=== PATIENT | female | born 1970 | race Caucasian/White ===

== ENCOUNTER → 2019-12-05 12:46 | Outpatient (BNVA) | payer MEDICAID, SELFPAY | PROVIDERS: PCP Family Medicine; Referring Provider Internal Medicine; Visit Provider Physician Assistant | DX: Z76.89 Persons encountering health services in other specified circumstances (principal) ==

== ENCOUNTER 2019-12-25 14:33 | Outpatient (REF) | payer MEDICAID, SELFPAY ==
--- NOTE | 2019-12-25 14:51 | MM_ITS ---
EXAMINATION: MM DIAGNOSTIC DIGITAL BREAST TOMOSYNTHESIS, LEFT CLINICAL INFORMATION: Benign stereotactic biopsy 05/27/2019 (benign breast parenchyma with fibroadenomatous changes and associated microcalcifications). Post biopsy hematoma. Follow-up. The lifetime risk of breast cancer based on the Tyrer-Cuzick Model is 8%. COMPARISON: Mammography: 05/27/2019, 05/21/2019, 05/14/2019 TECHNIQUE: Digital breast tomosynthesis is performed in both the craniocaudal and mediolateral oblique views along with computer-aided detection (CAD). Synthesized 2D images are generated from the tomosynthesis. Additional magnification left CC and magnification left LM views are obtained. FINDINGS: There are scattered areas of fibroglandular density (ACR BI-RADS breast composition Category b). The post procedure hematoma has almost completely resolved with only some minor residual density just medial to the clip marker. There are some residual calcifications as expected. The remainder the left breast is unremarkable. No additional findings. Today's exam serves as new baseline post sampling. Results are discussed with the patient at time of visit. IMPRESSION: No mammographic evidence of malignancy. Today's mammogram serves as new baseline for left breast. ASSESSMENT: BI-RADS 2: Benign RECOMMENDATION: Routine annual mammography screening, due in 6 months. This patient's information was entered into a reminder system with a target due date for their next mammogram.
== END 2019-12-25 14:34 | disposition home or self-care (01) ==
LOC: HO.MAMMO 14:33
PROVIDERS: PCP Internal Medicine; Visit Provider Internal Medicine
DX: Z98.890 Other specified postprocedural states (principal)
CPT/HCPCS: 77061; 77065

== ENCOUNTER 2020-02-13 08:55 | Day surgery (SDC) | payer MEDICAID, SELFPAY ==
[2020-02-07 13:38] VITALS: BMI 31.2
--- NOTE | 2020-02-12 09:19 | HO.ANESPROP2 ---
Documented by User: Holly Hill 02/12/20 09:23 HPI - Anesthesia Eval Consult details Narrative: 49yo F for Colonoscopy PMFSH Past Medical History Medical History Diabetes Hyperlipidemia Hypertension Family History Family History Father No problems noted. Mother No problems noted. Surgical History Surgical History S/P breast biopsy, left Social History Social History Are you a primary respiratory care program director to a significant other at home: No Do you presently have visiting nurse or other home services: No Smoking Status: Unknown if ever smoked Use of substances other than those prescribed or required for medical reasons: No Have you been hit, kicked, punched, or otherwise hurt by someone within the past year? If so, by whom?: No Advance Directives: No Advance Directives Information Provided: No Advance Directives on File: No Meds Allergies Allergy/AdvReac Type Severity Reaction Status Date / Time No Known Allergies Allergy Unverified 02/07/20 13:26 [No Known Allergies*] Home Medications Medication Instructions Recorded Confirmed Type aspirin 81 mg chewable tablet 81 mg PO DAILY 12/04/19 02/07/20 History atorvastatin 20 mg tablet 20 mg PO DAILY 12/04/19 02/07/20 History hydrochlorothiazide 25 mg tablet 25 mg PO QAM 12/04/19 02/07/20 History losartan 100 mg tablet 100 mg PO DAILY 12/04/19 02/07/20 History insulin glargine [Lantus U-100 34 unit SUBCUT QPM 02/07/20 02/07/20 History Insulin] insulin lispro [Humalog U-100 12 unit SUBCUT DIRECTED 02/07/20 02/07/20 History Insulin] Exam Exam Date and Time: February 12, 2020918 Height,Weight and Vital Signs: Height 5 ft Weight 72.575 kg Assessment and Plan Assessment Anesthesia Assessment: Chart Reviewed Documented by User: Basilio Alvarez 02/13/20 09:41 [facility] Past Medical History Medical History Diabetes Hyperlipidemia Hypertension Family History Family History Father No problems noted. Mother No problems noted. Surgical History Surgical History S/P breast biopsy, left Social History Social History Are you a primary respiratory care program director to a significant other at home: No Do you presently have visiting nurse or other home services: No Smoking Status: Unknown if ever smoked Use of substances other than those prescribed or required for medical reasons: No Have you been hit, kicked, punched, or otherwise hurt by someone within the past year? If so, by whom?: No Advance Directives: No Advance Directives Information Provided: No Advance Directives on File: No Meds Allergies Allergy/AdvReac Type Severity Reaction Status Date / Time No Known Allergies Allergy Unverified 02/07/20 13:26 [No Known Allergies*] Home Medications Medication Instructions Recorded Confirmed Type aspirin 81 mg chewable tablet 81 mg PO DAILY 12/04/19 02/07/20 History atorvastatin 20 mg tablet 20 mg PO DAILY 12/04/19 02/07/20 History hydrochlorothiazide 25 mg tablet 25 mg PO QAM 12/04/19 02/07/20 History losartan 100 mg tablet 100 mg PO DAILY 12/04/19 02/07/20 History insulin glargine [Lantus U-100 34 unit SUBCUT QPM 02/07/20 02/07/20 History Insulin] insulin lispro [Humalog U-100 12 unit SUBCUT DIRECTED 02/07/20 02/07/20 History Insulin] Exam Airway Mallampati Class: II TM Dist: >3cm Neck ROM: Full Loose/Missing/Broken Teeth: No Heart: rrr+[id number] Lungs: cta b/l Assessment and Plan Assessment Anesthesia Assessment: Anesthesia Plan Discussed, PAT Visit and Chart Reviewed Final Anesthetic Review NPO: Yes ASA Class: II Final Preanesthetic Review: No Changes in Pt Med Stat, Meds/Allgs Chart Reviewed, Consent Obtained/Reviewed and Anes Risks/Benef Reviewed Patient Risk: Low Procedure Risk: Low Assessment/Block/Sedation in SS: Assess/Block/Sedation-SS Anesthetic Plan Anesthetic Plan: MAC: Disposition: Standard PACU
[2020-02-13 09:12] LABS: Glucose, Whole Blood 133 mg/dL (60-115)
[2020-02-13 09:15] VITALS: BP 131/79; PULSE 86; RESP 20; TEMP 36.6; O2SAT 99
--- NOTE | 2020-02-13 09:17 | MHC.SHP ---
Pre-Procedural Eval Section B Chief Complaint: SCREENING Details of Present Illness: Colon cancer screening Relevant Family History (Specify if Yes): No Relevant Social History: None Present Medications: see Short Stay Collaborative assessment Medical History: Significant History (Diabetes new this year. Hypertension, HLD) History of Previous Operations: No relevant previous surgery Allergies: Allergies Allergy/AdvReac Type Severity Reaction Status Date / Time No Known Allergies Allergy Unverified 02/07/20 13:26 [No Known Allergies*] Review of Systems Sugical H&P ROS: Negative: Constitution, Respiratory and Gastrointestinal and Yes, Specify: Cardiovascular (hypertension controlled on meds) and Endocrine (diabetes new) Exam Surgical H&P Exam: Normal: HEENT, Normal: Heart, Normal: Lungs, Normal: Extremities and Normal: Abdomen Plan Diagnosis/Plan: Unchanged Patient has been examined and remains a candidate for the planned procedure--yes
[2020-02-13] MEDS: Lactated Ringers 1,000 ML 100 ML IVCONT (09:33)
--- NOTE | 2020-02-13 09:49 | PM.OP ---
Brief Operative Note Date of Service: 02/13/20 Pre-op diagnosis: iNITIAL COLON CANCER SCREENING--NON HIGH RISK Post-op diagnosis: other (? POOR OR NO PREP) Procedure: COLONOSCOPY TO 25 CM ALL SOLID STOOL PRESENT Implants: NONE Surgeon: Janki Gagnon MD Anesthesia: MAC (FAROOQ HONG) Estimated blood loss (mL): 0 Pathology: none sent Condition: stable Disposition: PACU
[2020-02-13 09:53] VITALS: BP 123/65; PULSE 82; RESP 14; TEMP 36.8; O2SAT 98
[2020-02-13 10:07] VITALS: BP 139/84; PULSE 81; RESP 14; TEMP 36.8; O2SAT 97
--- NOTE | 2020-02-13 10:36 | HO.POSTANES ---
Post Anesthesia Evaluation Post Anesthesia Evaluation Vital Signs: Vital Signs Temp Pulse Resp BP Pulse Ox 02/13/20 10:07 98.2 F 81 14 139/84 97 02/13/20 09:53 98.2 F 82 14 123/65 98 02/13/20 09:15 98 F 86 20 131/79 99 Anesthesia: General (tiva) Mental Status: Awake Pain Control: Satisfactory Nausea/Vomiting: None Hydration: Adequate Anesthesia-Related Issues: No Anes. Related Issues
--- NOTE | 2020-02-13 11:01 | OP_ITS ---
SURGEON: Janki Gagnon MD PREOPERATIVE DIAGNOSIS: Colon cancer screening. POSTOPERATIVE DIAGNOSIS: Poor prep; question no prep. PROCEDURE PERFORMED: Colonoscopy to 25 cm secondary to stool burden. ESTIMATED BLOOD LOSS: No blood loss. COMPLICATIONS: No complications. ANESTHESIA: Monitored. ANESTHESIOLOGIST: Owen Cramer CRNA. ASSISTANTS:NONE SPECIMENS: No specimens removed. ACADEMIC PROGRAM SPECIALIST: Dr. Gagnon. FINDINGS: Digital rectal exam reveals sphincter tone to be adequate. There was stool immediately upon palpating at time of digital rectal exam. The scope was introduced and, as predicted, there was nothing but solid stool present. There was no residual liquid effluent around. I was able to slowly navigate over scybalous stool to the level of approximately 25 cm. There were no large lesions. No evidence of bleeding. Scope was withdrawn. Anorectal verge was clear. PLAN: The patient will need a repeat exam, would suggest clarification on how she approached the prep. She may have a degree of constipation not appreciated, concern would be to consider a two-day prep in her if that is the case. Repeat exam should be considered in the next year. Would suggest postprocedure FIT testing. If negative, we could safely go out 12 months: She has no family history. She is a nonsmoker etc. Our office will send out the FIT card. She will be rescheduled after results are reviewed. EXCELLENCE COACH: No library assistant. GRAFT OR IMPLANTS: No grafts or implants. CONDITION: Postprocedure, stable. Janki Gagnon MD MEN/MODL / [id number] [facility] CENTERBrooke
== END 2020-02-13 10:51 | disposition home or self-care (01) ==
PROVIDERS: PCP Internal Medicine; Visit Provider Internal Medicine Gastroenterology
PROC: 0DJD8ZZ Inspection of Lower Intestinal Tract, Via Natural or Artificial Opening Endoscopic (ICD-10-PCS; CPT 45378; principal; 2020-02-13 09:30)
DX: Z12.11 Encounter for screening for malignant neoplasm of colon (principal); E11.9 Type 2 diabetes mellitus without complications; Z79.4 Long term (current) use of insulin
CPT/HCPCS: 45330; 82947

== ENCOUNTER → 2020-04-01 10:11 | Outpatient (BNVA) | payer MEDICAID, SELFPAY | PROVIDERS: Visit Provider Advanced Practice Midwife | DX: Z76.89 Persons encountering health services in other specified circumstances (principal) ==

== ENCOUNTER 2020-05-19 11:09 | Outpatient (REF) | payer MEDICAID, SELFPAY ==
--- NOTE | ~2020-05-19 | MM_ITS ---
EXAMINATION: MM SCREENING DIGITAL BREAST TOMOSYNTHESIS, BILATERAL CLINICAL INFORMATION: Screening. Asymptomatic. Benign left stereotactic biopsy for calcifications 05/27/2019 (Benign breast parenchyma with fibroadenomatous changes and associated microcalcifications). The lifetime risk of breast cancer based on the Tyrer-Cuzick Model is 9%. COMPARISON: Mammography: 12/25/2019, 05/27/2019, 05/21/2019, 05/08/2018, 05/04/2017 TECHNIQUE: Digital breast tomosynthesis is performed in both the craniocaudal and mediolateral oblique views along with computer-aided detection (CAD). Synthesized 2D images are generated from the tomosynthesis. FINDINGS: There are scattered areas of fibroglandular density (ACR BI-RADS breast composition Category b). There are no significant masses, abnormal calcifications, or other abnormalities. Parenchymal pattern is similar to prior studies. There are incidental shifting fibroglandular densities from year to year related to positioning and compression. Biopsy clip marker again seen posterior central 9:00 left breast. No recurrent calcifications. The axilla and skin contours are unremarkable. MM/MM tomosynthesis screening BI IMPRESSION: No mammographic evidence of malignancy. ASSESSMENT: BI-RADS 2: Benign RECOMMENDATION: Routine annual mammography screening. This patient's information was entered into a reminder system with a target due date for their next mammogram.
== END 2020-05-19 11:10 | disposition home or self-care (01) ==
LOC: HO.MAMMO 11:09
PROVIDERS: PCP Internal Medicine; Visit Provider Internal Medicine
DX: Z12.31 Encounter for screening mammogram for malignant neoplasm of breast (principal)
CPT/HCPCS: 77063; 77067

== ENCOUNTER → 2020-08-19 10:28 | Outpatient (BNVA) | payer MEDICAID, SELFPAY | PROVIDERS: PCP Internal Medicine; Visit Provider Physician Assistant ==

== ENCOUNTER → 2020-08-27 09:36 | Outpatient (BNVA) | payer MEDICAID, SELFPAY | PROVIDERS: PCP Internal Medicine; Visit Provider Physician Assistant ==

== ENCOUNTER 2020-12-26 15:37 | Emergency (ER) | payer MEDICAID, SELFPAY ==
[2020-12-26 16:16] VITALS: BP 140/76; PULSE 108; RESP 20; TEMP 37.6; O2SAT 93; BMI 37.3
[2020-12-26 16:41] VITALS: BP 125/74; PULSE 118; RESP 18; TEMP 39.7; O2SAT 93
[2020-12-26] MEDS: Acetaminophen 325 MG TABLET 975 MG PO (17:05)
[2020-12-26 17:18] LABS: COVID-19 Test Positive (Negative)
--- NOTE | 2020-12-26 18:18 | ED_ITS ---
HPI - General Adult General Chief complaint: General Medical Stated complaint: Fever/Bodyaches Time Seen by Provider: 12/26/20 16:23 Source: patient Mode of arrival: ambulatory Limitations: no limitations History of Present Illness HPI narrative: 50-year-old female who presents emergency department for evaluation of fever, headaches, body aches, and fatigue. The patient states that she was exposed to a friend who is COVID positive. The patient has not been vaccinated for COVID. She has been sick for approximately 2-3 days. She denied chest pain, shortness of breath, dyspnea on exertion, diarrhea, loss of s ense of taste or smell. Patient's past medical history significant for obesity, hypertension, diabetes mellitus and high cholesterol. Related Data Home Medications Medication Instructions Recorded Confirmed aspirin 81 mg chewable tablet 81 mg PO DAILY 12/04/19 10/09/20 (Children's Aspirin) atorvastatin 20 mg tablet 20 mg PO DAILY 12/04/19 10/09/20 hydrochlorothiazide 25 mg tablet 25 mg PO QAM 12/04/19 10/09/20 losartan 100 mg tablet 100 mg PO DAILY 12/04/19 10/09/20 insulin glargine 100 unit/mL 38 unit SUBCUT QPM 02/07/20 10/09/20 subcutaneous solution (Lantus U-100 Insulin) insulin lispro 100 unit/mL 14 unit SUBCUT QAM 02/07/20 10/09/20 subcutaneous solution (Humalog U-100 Insulin) Previous Rx's Medication Instructions Recorded peg-electrolyte solution 420 gram 240 ml PO ONCE 1 Days #4000 ml 08/27/20 oral solution (TriLyte With Flavor Packets) polyethylene glycol 3350 17 17 g PO DAILY PRN #510 g 08/27/20 gram/dose oral powder (Miralax) Allergies Allergy/AdvReac Type Severity Reaction Status Date / Time No Known Allergies Allergy Verified 08/27/20 09:36 [No Known Allergies*] Review of Systems Review of Systems: Yes all other systems are reviewed and are negative [facility] Past Medical History [facility] Narrative: Past medical history: Obesity with BMI of 37, hypertension, hyperlipidemia, and diabetes. Past surgical history: None. Social history: She denies tobacco, alcohol and drug use. Medical History Diabetes Hyperlipidemia Hypertension Surgical History H/O colonoscopy H/O esophagogastroduodenoscopy S/P breast biopsy, left Family History Family History Father No problems noted. Mother No problems noted. Social History Social History (Updated 08/27/20 @ 10:17 by Louise Hawley PA-C) Are you a primary adult caregiver to a significant other at home: No Do you presently have visiting nurse or other home services: No Alcohol intake: never Patient Tobacco Use Status: Never used Tobacco Use of substances other than those prescribed or required for medical reasons: No Advance Directives: No Advance Directives Information Provided: No Physical Exam Vital Signs: Vital Signs: Last Vital Signs Temp 103.4 F H 12/26/20 16:41 Pulse 118 H 12/26/20 16:41 Resp 18 12/26/20 16:41 BP 125/74 12/26/20 16:41 Pulse Ox 93 12/26/20 16:41 Body Mass Index 37.3 Const: General: cooperative and no acute distress Orientation/consciousness: oriented to person and oriented to place Limitations: no limitations HENMT: Head: Yes normal to inspection, Yes normocephalic and Yes atraumatic Ears: external ears normal General nose exam: Normal external nose present Face and sinus: Yes normal facial exam Mouth: Normal oral and palatal mucosa present Throat: Yes posterior oropharynx normal Eyes: General: appearance normal, both eyes and all related structures Pupils: Equal, round and reactive pupils present Neck: Neck: Yes normal visual inspection, Yes no lymphadenopathy, Yes trachea midline and Yes supple Chest: Chest palpation & inspection: normal inspection of the chest and normal palpation of entire chest wall Resp: Effort & Inspection: normal respiratory effort and able to speak in complete sentences Auscultation: clear to auscultation bilaterally Cardio: Rate: regular rate Rhythm: regular rhythm Heart sounds: S1 normal heart sound present, S2 normal heart sound present and no murmurs GI: Inspection: Yes normal to inspection Palpation (GI): Soft to palpation, nontender and no guarding Auscultation: normal bowel sounds : General: Yes no CVA tenderness Back/Spine/Pelvis: Back: no CVA tenderness Skin: General skin exam: no rashes or lesions noted Neuro: General: oriented to person and oriented to place Cranial nerves: Yes CN's II-XII intact bilaterally and Yes Equal, round and reactive pupils present Cognition (Neuro): normal cognition Motor exam (neuro): 5/5 motor strength present throughout Extrem: General: Yes normal to inspection Psych: Appearance: grossly normal Speech and movement: Normal speech and movement present Affect: normal affect Attitude: cooperative Thought process: Normal thought process present Thought content: Normal thought content present Course Course Course Narrative: 50-year-old female with a history of obesity, diabetes mellitus, hypertension hyperlipidemia who was exposed to COVID-19 is now been sick for approximately 2-3 these with a viral-like illness. Patient's vital signs did reveal a temperature 103.4? F. She was also tachycardic with a pulse of 118. O2 saturation was 93% on room air. Physical examination was unrem arkable. COVID-19 test is positive. I did discuss this with her. Given her comorbid conditions I felt that she would benefit from monoclonal therapy and I did contact the [facility] monoclonal referral line and left a message on the referral line answering machine. The patient was advised to contact the referral line tomorrow morning to discuss whether not she can get monoclonal antibodies. The patient does not need to be hospitalized at this time and she will be discharged home with verbal and printed instructions on COVID-19 infection. I did give her warning signs for pneumonia and instructed her to to return to emergency department if she develops the signs. She was discharged home. Medical Decision Making Lab Data Labs: Lab Results 12/26/20 Range/Units 17:02 COVID-19 (ANIL) Positive A (Negative) COVID-19 Clin Com See Note Discharge Plan Discharge Clinical Impression: COVID-19 virus infection Patient Disposition: Home, Self-Care Instructions: COVID-19 (Coronavirus Disease 2019) (ED) Additional Instructions: Your COVID-19 RNA test was positive. Given your medical problems which include obesity (BMI of 37) diabetes, hype rtension and high cholesterol, you are at high risk for a more serious COVID infection. I have called the [facility] COVID-19 monoclonal antibody line. [facility] has the ability to give you COVID-19 antibodies and this might help prevent you from getting seriously ill from this COVID-19 infection. I gave them your phone number, if you do not hear from them by 1:00 p.m. tomorrow then call this number to ask them if you qualify for COVID-19 monoclonal antibodies. . This medication could save your lie and prevent you from gettin g seriously ill from COVID-19. Watch for signs of pneumonia which include chest pain, cough, shortness of breath, shortness of breath when you exert yourself. If you develops signs of pneumonia then you may need to be hospitalized and you should return to the emergency department for re-evaluation. You need to isolate yourself for 14 days so that you do not expose any but he also 2 COVID-19. Prescriptions: No Action Lantus U-100 Insulin 100 unit/mL Solution 38 unit SUBCUT QPM RF: 0 insulin lispro [Humalog U-100 Insulin] 100 unit/mL Solution 14 unit SUBCUT QAM RF: 0 peg-electrolyte soln [TriLyte With Flavor Packets] 420 gram recon soln 240 ml PO ONCE 1 Days Qty: 4000 RF: 0 polyethylene glycol 3350 [Miralax] 17 gram/dose powder 17 g PO DAILY PRN (Reason: laxative effect) Qty: 510 RF: 0 aspirin [Children's Aspirin] 81 mg tablet,chewable 81 mg PO DAILY RF: 0 atorvastatin 20 mg tablet 20 mg PO DAILY RF: 0 losartan 100 mg tablet 100 mg PO DAILY RF: 0 hydrochlorothiazide 25 mg tablet 25 mg PO QAM RF: 0
[2020-12-26 18:27] VITALS: BP 137/91; PULSE 106; RESP 16; TEMP 37.8; O2SAT 94
== END 2020-12-26 18:40 | disposition home or self-care (01) ==
PROVIDERS: Emergency Provider Emergency Medicine Emergency Medical Services; PCP Internal Medicine
DX: U07.1 COVID-19 (principal); M79.10 Myalgia, unspecified site; R50.9 Fever, unspecified; E11.9 Type 2 diabetes mellitus without complications; Z79.4 Long term (current) use of insulin; Z79.899 Other long term (current) drug therapy
CPT/HCPCS: 36415; 87635; 99283; 99284

== ENCOUNTER 2021-05-11 11:25 | Outpatient (REF) | payer MEDICAID, SELFPAY ==
--- NOTE | ~2021-05-11 | US_ITS ---
EXAMINATION: US PELVIS CLINICAL INFORMATION: This is a 50-year-old postmenopausal female with postmenopausal bleeding. COMPARISON: Comparison is made to previous study dated 10/13/2009. TECHNIQUE: Ultrasound of the pelvis is performed using transabdominal transducers along with Doppler. Transvaginal imaging was declined. FINDINGS: Uterus: The uterus is anteverted and anteflexed and measures 12.8 x 3.9 x 5.2 cm. The double wall endometrial thickness is 6 mm. The uterus is smooth in contour and has normal myometrial echogenicity. No visible fibroid. Adnexa: Both ovaries are visualized. There is normal color flow to the adnexa. There is no ovarian torsion. There is no pelvic ascites or fluid collection. Right ovary measures 2.4 x 1.5 x 2.0 cm. The ovary volume is 3.8 mL. Previously, the right ovary measured 1.5 x 1.1 x 2.2 cm. Left ovary measures 2.2 x 1.5 x 2.6 cm. The left ovary volume is 4.5 mL. Previously, the left ovary measured 2.5 x 2.2 x 2.8 cm. US/US pelvic and transvaginal IMPRESSION: 1. The endometrial thickness is mildly increased for postmenopausal patient but relatively homogeneous. Clinical correlation is recommended. 2. Otherwise, normal study.
== END 2021-05-11 11:26 | disposition home or self-care (01) ==
LOC: HO.US 11:25
PROVIDERS: PCP Internal Medicine; Visit Provider Advanced Practice Midwife
DX: N95.0 Postmenopausal bleeding (principal)
CPT/HCPCS: 76830; 76856

== ENCOUNTER 2021-07-05 08:45 | Day surgery (SDC) | payer MEDICAID, SELFPAY ==
[2021-06-30 08:43] VITALS: BMI 38.4
--- NOTE | 2021-07-02 09:35 | P.CONAN_ITS ---
Documented by User: Holly Hill NP 07/02/21 09:36 HPI - Anesthesia Eval Consult details Narrative: 51yo F for Colonoscopy PMFSH Active Problems Active Problems: All Active Problems (Updated 03/12/21 @ 15:10 by Erica Jimenez, ANALI) Encounter for screening colonoscopy (Acute) COVID-19 virus infection (Acute) Past Medical History Medical History (Updated 03/12/21 @ 15:10 by Erica Jimenez RN) Diabetes History of COVID-19 Hyperlipidemia Hypertension Family History Family History Father No problems noted. Mother No problems noted. Surgical History Surgical History H/O colonoscopy H/O esophagogastroduodenoscopy S/P breast biopsy, left Social History Social History (Updated 08/27/20 @ 10:17 by Louise Hawley PA-C) Are you a primary child day care teacher to a significant other at home: No Do you presently have visiting nurse or other home services: No Alcohol intake: never Patient Tobacco Use Status: Never used Tobacco Advance Directives: No Advance Directives Information Provided: Yes Meds Allergies Allergy/AdvReac Type Severity Reaction Status Date / Time No Known Allergies Allergy Verified 01/27/21 14:13 [No Known Allergies*] Home Medications Medication Instructions Recorded Confirmed Last Taken Type aspirin 81 mg chewable tablet 81 mg PO DAILY 12/04/19 01/27/21 Unknown History (Children's Aspirin) atorvastatin 20 mg tablet 20 mg PO DAILY 12/04/19 01/27/21 Unknown History hydrochlorothiazide 25 mg tablet 25 mg PO QAM 12/04/19 01/27/21 Unknown History losartan 100 mg tablet 100 mg PO DAILY 12/04/19 01/27/21 Unknown History insulin glargine 100 unit/mL 38 unit SUBCUT QPM 02/07/20 01/27/21 Unknown History subcutaneous solution (Lantus U-100 Insulin) insulin lispro 100 unit/mL 14 unit SUBCUT QAM 02/07/20 01/27/21 Unknown History subcutaneous solution (Humalog U-100 Insulin) Exam Exam Date and Time: July 02, 2021 0935 Height,Weight and Vital Signs: Height 4 ft 11.25 in Weight 87.09 kg Assessment and Plan Assessment Anesthesia Assessment: Chart Reviewed Documented by User: Ellen Chappell MD 07/05/21 09:28 REPLACED BY [facility] Past Medical History Medical History (Updated 03/12/21 @ 15:10 by Erica Jimenez, ANALI) Diabetes History of COVID-19 Hyperlipidemia Hypertension Family History Family History Father No problems noted. Mother No problems noted. Family history of problems with anesthesia: No Surgical History Surgical History H/O colonoscopy H/O esophagogastroduodenoscopy S/P breast biopsy, left History of Problems with Anesthesia: No Social History Social History (Updated 08/27/20 @ 10:17 by Louise Hawley PA-C) Are you a primary child day care teacher to a significant other at home: No Do you presently have visiting nurse or other home services: No Alcohol intake: never Patient Tobacco Use Status: Never used Tobacco Advance Directives: No Advance Directives Information Provided: Yes Meds Allergies Allergy/AdvReac Type Severity Reaction Status Date / Time No Known Allergies Allergy Verified 01/27/21 14:13 [No Known Allergies*] Home Medications Medication Instructions Recorded Confirmed Last Taken Type aspirin 81 mg chewable tablet 81 mg PO DAILY 12/04/19 01/27/21 Unknown History (Children's Aspirin) atorvastatin 20 mg tablet 20 mg PO DAILY 12/04/19 01/27/21 Unknown History hydrochlorothiazide 25 mg tablet 25 mg PO QAM 12/04/19 01/27/21 Unknown History losartan 100 mg tablet 100 mg PO DAILY 12/04/19 01/27/21 Unknown History insulin glargine 100 unit/mL 38 unit SUBCUT QPM 02/07/20 01/27/21 Unknown History subcutaneous solution (Lantus U-100 Insulin) insulin lispro 100 unit/mL 14 unit SUBCUT QAM 02/07/20 01/27/21 Unknown History subcutaneous solution (Humalog U-100 Insulin) Exam Airway Mallampati Class: II TM Dist: >3cm Neck ROM: Full Heart: rrr Lungs: cta Assessment and Plan Assessment Anesthesia Assessment: Anesthesia Plan Discussed and Chart Reviewed Final Anesthetic Review Family History of Problems with Anesthesia: No History of Problems with Anesthesia: No NPO: Yes ASA Class: III Final Preanesthetic Review: No Changes in Pt Med Stat, Meds/Allgs Chart Reviewed and Consent Obtained/Reviewed Patient Risk: Intermediate Procedure Risk: Intermediate Anesthetic Plan Anesthetic Plan: MAC: Disposition: Standard PACU
--- NOTE | 2021-07-05 09:19 | MHC.SHP ---
Pre-Procedural Eval Section A Date of Service: 07/05/21 The patient is an INPATIENT: No The History & Physical has been completed within 30 days and I have reviewed it.: No Section B Chief Complaint: screening Details of Present Illness: Colon cancer screening Relevant Family History (Specify if Yes): No Relevant Social History: None Present Medications: see Short Stay Collaborative assessment Medical History: Significant History (Diabetes Hyperlipidemia Hypertension) History of Previous Operations: Relevant previous surgery/procedure and date(s) (H/O colonoscopy H/O esophagogastroduodenoscopy S/P breast biopsy, left) Allergies: Allergies Allergy/AdvReac Type Severity Reaction Status Date / Time No Known Allergies Allergy Verified 01/27/21 14:13 [No Known Allergies*] Review of Systems Sugical H&P ROS: Negative: Constitution, Cardiovascular, Respiratory and Gastrointestinal Exam Surgical H&P Exam: Normal: Heart, Normal: Lungs, Normal: Extremities and Normal: Abdomen Plan Diagnosis/Plan: Unchanged I have reviewed the history and physical and performed a pertinent physical examination on my patient. No changes have occurred unless specified.
[2021-07-05 09:21] LABS: Glucose, Whole Blood 127 mg/dL (60-115)
[2021-07-05 09:22] VITALS: BMI 32.0
--- NOTE | 2021-07-05 09:28 | W.PM.OPN ---
Operative Note Operative Note Date of Service: 07/05/21 Narrative: Pre-op diagnosis: Colon cancer screening Post-op diagnosis:?other (Colon polyps, diverticulosis, hemorrhoids) Procedure: COLONOSCOPY TILL CECUM WITH BIOPSIES Consent: Indications for the procedure and potential complications of bleeding, perforation, reaction to medications and missed diagnosis were discussed with the patient and informed consent was obtained. Instrument: Olympus PCF H 190 L variable stiffness pediatric colonoscope Monitoring: Vital signs and clinical assessment, intermittent blood pressure monitoring, continuous EKG monitoring, Pulse oximetry and Carbon Dioxide monitoring were done throughout the procedure. Colon withdrawl time was 17 minutes. Procedure: The patient was placed in the left lateral decubitis position and pre-procedure medications were administered. After a digital rectal examination of the ano-rectum, the video colonoscope was inserted into the rectum and advanced through the colon to the cecum. The colonoscope was slowly withdrawn in a retrograde panoramic fashion and the colon mucosa was carefully examined including a retroflexed view of the rectum. Findings and interventions are described below. Procedure Difficulty: Without difficulty Findings: Terminal Ileum: Not evaluated Cecum:? Normal Ascending Colon:? Normal Transverse Colon:? A 4-5 mm diminutive appearing polyp in the distal TC - removed with a cold bx. Scattered moderate diverticulosis Descending Colon:? Scattered moderate diverticulosis Sigmoid Colon:? Moderate diverticulosis Rectum:? Normal Ano-rectum:? Moderate internal hemorrhoids Colon preparation:? Good after some irrigation. Pt was advised to take 2 tab of dulcolax daily x 3 days before colonoscopy. Pt drank a little more than half her prep and stated she was having clear BMs. Impression and Post Procedure Diagnosis: Colonoscopy Findings: One small polyp removed Moderate diverticulosis seen in the left and transverse colon Moderate hemorrhoids on retroflexed exam. Plan: Await pathology results Patient has an appointment on 07/19/21 in the [facility] with KENIA Jo. Repeat Colonoscopy interval based on path results - in 5 years if polyps are adenomatous and 10 years if polyps are hyperplastic. Above findings were reviewed with the patient and colon polyps and diverticulosis handouts were given in the discharge area Surgeon: Justin Espitia MD Anesthesia:?MAC (Dr Cr) Was an Back Up Scan Coordinator used for this Procedure?:?Yes Back Up Scan Coordinator:?Margaux Pompa Estimated blood loss (mL):?0 Pathology:?other (A. transverse colon polyp) Condition:?stable Disposition:?PACU
[2021-07-05] MEDS: Lactated Ringers 1,000 ML 100 ML IVCONT (09:55)
[2021-07-05 10:39] VITALS: BP 129/80; PULSE 80; RESP 16; TEMP 36.2; O2SAT 95
[2021-07-05 10:54] VITALS: BP 124/76; PULSE 86; RESP 16; TEMP 36.2; O2SAT 95
[2021-07-05 11:09] VITALS: BP 134/91; PULSE 82; RESP 16; TEMP 36.2; O2SAT 95
[2021-07-05 11:20] LABS: Glucose, Whole Blood 107 mg/dL (60-115)
== END 2021-07-05 11:58 | disposition home or self-care (01) ==
PROVIDERS: PCP Internal Medicine; Visit Provider Internal Medicine Gastroenterology
PROC: 0DJD8ZZ Inspection of Lower Intestinal Tract, Via Natural or Artificial Opening Endoscopic (ICD-10-PCS; CPT 45378; principal; 2021-07-05 10:00)
DX: Z12.11 Encounter for screening for malignant neoplasm of colon (principal); K63.5 Polyp of colon; K57.30 Diverticulosis of large intestine without perforation or abscess without bleeding; K64.8 Other hemorrhoids; I10 Essential (primary) hypertension; E78.5 Hyperlipidemia, unspecified; E11.9 Type 2 diabetes mellitus without complications; Z79.4 Long term (current) use of insulin; Z79.82 Long term (current) use of aspirin; Z79.899 Other long term (current) drug therapy; Z86.16 Personal history of COVID-19
CPT/HCPCS: 45380; 82947; 88305

== ENCOUNTER 2021-07-16 08:03 | Outpatient (REF) | payer MEDICAID, SELFPAY ==
--- NOTE | ~2021-07-16 | MM_ITS ---
EXAMINATION: MM SCREENING DIGITAL BREAST TOMOSYNTHESIS, BILATERAL CLINICAL INFORMATION: Screening. Asymptomatic. Benign left stereotactic biopsy 05/27/2019 (fibroadenomatous changes and associated microcalcifications). The lifetime risk of breast cancer based on the Tyrer-Cuzick Model is 7%. COMPARISON: Mammography: 05/19/2020, 12/25/2019, 05/27/2019, 05/21/2019, 05/14/2019, 05/08/2018. TECHNIQUE: Digital breast tomosynthesis is performed in both the craniocaudal and mediolateral oblique views along with computer-aided detection (CAD). Synthesized 2D images are generated from the tomosynthesis. FINDINGS: There are scattered areas of fibroglandular density (ACR BI-RADS breast composition Category b). There are no significant masses, abnormal calcifications, or other abnormalities. No developing density. Biopsy clip marker present central posterior 9:00 left breast. The axilla and skin contours are unremarkable. MM/MM tomosynthesis screening BI IMPRESSION: No mammographic evidence of malignancy. ASSESSMENT: BI-RADS 1: Negative RECOMMENDATION: Routine annual mammography screening. This patient's information was entered into a reminder system with a target due date for their next mammogram.
== END 2021-07-16 08:04 | disposition home or self-care (01) ==
LOC: HO.MAMMO 08:03
PROVIDERS: Visit Provider Internal Medicine
DX: Z12.31 Encounter for screening mammogram for malignant neoplasm of breast (principal)
CPT/HCPCS: 77063; 77067

== ENCOUNTER → 2021-07-26 10:31 | Outpatient (BNVA) | payer MEDICAID, SELFPAY | PROVIDERS: PCP Internal Medicine; Visit Provider Advanced Practice Midwife | DX: N95.0 Postmenopausal bleeding (principal) | CPT/HCPCS: 99212 ==

== ENCOUNTER 2021-08-19 10:16 | Outpatient (REF) | payer MEDICAID, SELFPAY | END 2021-08-19 10:17 | disposition home or self-care (01) | LOC: HO.LAB 10:16 | PROVIDERS: PCP Internal Medicine; Visit Provider Advanced Practice Midwife | DX: N95.0 Postmenopausal bleeding (principal) | CPT/HCPCS: 58100; 88305 ==

== ENCOUNTER → 2021-10-06 09:11 | Outpatient (BNVA) | payer MEDICAID, SELFPAY | PROVIDERS: PCP Internal Medicine; Visit Provider Obstetrics & Gynecology | DX: N95.0 Postmenopausal bleeding (principal) | CPT/HCPCS: 99212 ==

== ENCOUNTER → 2021-11-18 11:13 | Outpatient (BNVA) | payer MEDICAID, SELFPAY | PROVIDERS: PCP Internal Medicine; Visit Provider Obstetrics & Gynecology | DX: N95.0 Postmenopausal bleeding (principal) | CPT/HCPCS: 99212 ==

== ENCOUNTER 2021-11-19 10:48 | Day surgery (SDC) | payer MEDICAID, SELFPAY ==
[2021-11-01 10:59] VITALS: BMI 33.5
--- NOTE | 2021-11-18 08:52 | P.CONAN_ITS ---
Documented by User: Holly Hill NP 11/18/21 08:52 HPI - Anesthesia Eval Consult details Narrative: 51yo F for D&C Hysteroscopy,poss polypectomy,poss myomectomy PMFSH Active Problems Active Problems: All Active Problems (Updated 08/19/21 @ 10:47 by Jade Lema) Encounter for screening colonoscopy (Acute) COVID-19 virus infection (Acute) Postmenopausal bleeding (Acute) Past Medical History Medical History Diabetes History of COVID-19 Hyperlipidemia Hypertension Family History Family History Father No problems noted. Mother No problems noted. Family history of problems with anesthesia: No Surgical History Surgical History H/O colonoscopy H/O esophagogastroduodenoscopy Hx of tubal ligation S/P breast biopsy, left History of Problems with Anesthesia: No Social History Social History Are you a primary out of school hours care worker to a significant other at home: No Do you presently have visiting nurse or other home services: No Alcohol intake: never Patient Tobacco Use Status: Never used Tobacco Use of substances other than those prescribed or required for medical reasons: No Are you DNR?: No Advance Directives: No Advance Directives Information Provided: Yes Meds Allergies Allergy/AdvReac Type Severity Reaction Status Date / Time No Known Allergies Allergy Verified 11/18/21 11:36 [No Known Allergies*] Home Medications Medication Instructions Recorded Confirmed Last Taken Type aspirin 81 mg chewable tablet 81 mg PO DAILY 12/04/19 01/27/21 11/18/21 History (Children's Aspirin) atorvastatin 20 mg tablet 20 mg PO DAILY 12/04/19 01/27/21 Unknown History hydrochlorothiazide 25 mg tablet 25 mg PO QAM 12/04/19 01/27/21 11/19/21 History losartan 100 mg tablet 100 mg PO DAILY 12/04/19 01/27/21 Unknown History insulin glargine 100 unit/mL 38 unit subcut QPM 02/07/20 01/27/21 Unknown History subcutaneous solution (Lantus U-100 Insulin) insulin lispro 100 unit/mL 14 unit subcut QAM 02/07/20 01/27/21 Unknown History subcutaneous solution (Humalog U-100 Insulin) Exam Exam Date and Time: November 18, 2021 0852 Height,Weight and Vital Signs: Height 4 ft 11 in Weight 75.296 kg Assessment and Plan Assessment Anesthesia Assessment: Chart Reviewed Final Anesthetic Review Family History of Problems with Anesthesia: No History of Problems with Anesthesia: No Documented by User: David Delgado MD 11/19/21 14:02 HPI - Anesthesia Eval Consult details Narrative: 51yo F for D&C Hysteroscopy,poss polypectomy,poss myomectomy All risks and benefits of General Anesthesia explained in detail . [facility] Past Medical History Medical History Diabetes History of COVID-19 Hyperlipidemia Hypertension Functional capacity: independent ambulation Family History Family History Father No problems noted. Mother No problems noted. Surgical History Surgical History H/O colonoscopy H/O esophagogastroduodenoscopy Hx of tubal ligation S/P breast biopsy, left Social History Social History Are you a primary out of school hours care worker to a significant other at home: No Do you presently have visiting nurse or other home services: No Alcohol intake: never Patient Tobacco Use Status: Never used Tobacco Use of substances other than those prescribed or required for medical reasons: No Are you DNR?: No Advance Directives: No Advance Directives Information Provided: Yes Meds Allergies Allergy/AdvReac Type Severity Reaction Status Date / Time No Known Allergies Allergy Verified 11/18/21 11:36 [No Known Allergies*] Home Medications Medication Instructions Recorded Confirmed Last Taken Type aspirin 81 mg chewable tablet 81 mg PO DAILY 12/04/19 01/27/21 11/18/21 History (Children's Aspirin) atorvastatin 20 mg tablet 20 mg PO DAILY 12/04/19 01/27/21 Unknown History hydrochlorothiazide 25 mg tablet 25 mg PO QAM 12/04/19 01/27/21 11/19/21 History losartan 100 mg tablet 100 mg PO DAILY 12/04/19 01/27/21 Unknown History insulin glargine 100 unit/mL 38 unit subcut QPM 02/07/20 01/27/21 Unknown History subcutaneous solution (Lantus U-100 Insulin) insulin lispro 100 unit/mL 14 unit subcut QAM 02/07/20 01/27/21 Unknown History subcutaneous solution (Humalog U-100 Insulin) Exam Airway Mallampati Class: IV TM Dist: <=3cm Neck ROM: Full Loose/Missing/Broken Teeth: Yes (Fillings , Poor dentition overall ) Heart: S1,S2 Lungs: distant breath sounds Assessment and Plan Assessment Anesthesia Assessment: Anesthesia Plan Discussed Final Anesthetic Review NPO: Yes ASA Class: III Final Preanesthetic Review: Meds/Allgs Chart Reviewed, Consent Obtained/Reviewed and Anes Risks/Benef Reviewed Patient Risk: Intermediate Procedure Risk: Intermediate Anesthetic Plan Anesthetic Plan: GA Disposition: Standard PACU
[2021-11-19] VITALS (7 sets, daily range): BP systolic 117–156; BP diastolic 69–90; PULSE 77–89; RESP 16–18; TEMP 36.4–36.6; O2SAT 94–99; BMI 31.2
[2021-11-19 11:49] LABS: Glucose, Whole Blood 117 mg/dL (60-115)
--- NOTE | 2021-11-19 12:45 | MHC.SHP ---
Pre-Procedural Eval Section A Date of Service: 11/19/21 The patient is an INPATIENT: No Changes since office visit: No Cold of Flu in the past 2 weeks, No New Medical Problems, No Changes in Medication and No Patient answered all questions The History & Physical has been completed within 30 days and I have reviewed it.: Yes Section B Chief Complaint: Postmenopausal bleeding Allergies: Allergies Allergy/AdvReac Type Severity Reaction Status Date / Time No Known Allergies Allergy Verified 11/18/21 11:36 [No Known Allergies*] Plan Diagnosis/Plan: Unchanged I have reviewed the history and physical and performed a pertinent physical examination on my patient. No changes have occurred unless specified.
--- NOTE | 2021-11-19 14:14 | P.BOP_ITS ---
Brief Operative Note Date of Service: 11/19/21 Pre-op diagnosis: Postmenopausal bleeding Post-op diagnosis: same ( normal endometrial cavity) Procedure: Hysteroscopy D&C Surgeon: Froy Weinstein MD Anesthesia: GLMA Was an Resident Care Manager Rn used for this Procedure?: No Estimated blood loss (mL): 0 Pathology: other (Endometrial Scrapping.) Condition: stable Disposition: PACU
--- NOTE | 2021-11-19 14:15 | W.PM.OPN ---
Operative Note Operative Note Date of Service: 11/19/21 Narrative: Preop Diagnosis: Post Menopausal bleeding Operation: Diagnostic Hysteroscopy, Dilataion & Curettage Post Op Diagnosis: Normal endometrial cavity QBL: Minimal Anesthesia: MAC Surgeon: Froy Weinstein MD Pathology Laboratory Director: None Complication: None Pathology: Endometrial Scrapings Complication: None Pathology: Endometrial Scrapings Procedure: The patient was put in the dorsal lithotomy position, scrubbed, and draped in the usual manner. A sterile speculum was inserted in the patient's vagina. The anterior lip of the cervix was grasped with a single tooth tenaculum. The cervix was dilated up to 5 mm, then the scope was inserted in the patient's uterus. Inspection revealed Normal endometrial cavity. The Myosure Reach device was used; sharp curettings was carried on with minimal tissues retrieved. At the end of the procedure, all instruments were taken out of the patient uterine and vaginal cavity. The single tooth tenaculum was removed and homeostasis was assured using pressure,. The patient tolerated the procedure well and was transferred to the PACU in a stable condition.
--- NOTE | 2021-11-19 15:09 | PC.NURSE ---
late entry. pt in preop tearful at times, english teacher provided. pt worried about the potential for finding cancer as well as having general anesthesia, specifically being intubated. all questions answered regarding anesthesia and pt agreed to proceed. emotional support and warm blankets provided.
== END 2021-11-19 16:06 | disposition home health service (06) ==
LOC: HO.SSS 10:48
PROVIDERS: PCP Internal Medicine; Visit Provider Obstetrics & Gynecology
PROC: 0UDB8ZZ Extraction of Endometrium, Via Natural or Artificial Opening Endoscopic (ICD-10-PCS; CPT 58558; principal; 2021-11-19 13:30)
DX: N95.0 Postmenopausal bleeding (principal); E11.9 Type 2 diabetes mellitus without complications; I10 Essential (primary) hypertension; E78.5 Hyperlipidemia, unspecified; Z79.4 Long term (current) use of insulin; Z79.82 Long term (current) use of aspirin; Z79.899 Other long term (current) drug therapy; Z98.51 Tubal ligation status; Z86.16 Personal history of COVID-19
CPT/HCPCS: 58558; 82947; 88305; J1100; J2250; J2405; J3010

== ENCOUNTER → 2021-12-01 08:41 | Outpatient (BNVA) | payer MEDICAID, SELFPAY | PROVIDERS: PCP Internal Medicine; Visit Provider Obstetrics & Gynecology | DX: N95.0 Postmenopausal bleeding (principal) | CPT/HCPCS: 99212 ==

== ENCOUNTER 2022-02-03 09:21 | Outpatient (REF) | payer MEDICAID, SELFPAY | END 2022-02-03 09:22 | disposition home or self-care (01) | LOC: HO.LNP 09:21 | PROVIDERS: PCP Internal Medicine; Visit Provider Obstetrics & Gynecology | DX: N95.0 Postmenopausal bleeding (principal) | CPT/HCPCS: 58100; 88305 ==

== ENCOUNTER → 2022-03-08 12:16 | Outpatient (BNVA) | payer MEDICAID, SELFPAY | PROVIDERS: PCP Internal Medicine; Visit Provider Obstetrics & Gynecology | DX: N95.0 Postmenopausal bleeding (principal) | CPT/HCPCS: 99212 ==

== ENCOUNTER 2022-06-23 10:06 | Outpatient (REF) | payer MEDICAID, SELFPAY ==
[2022-06-23 11:57] LABS: Estimated Average Glucose 163 mg/dL; Hemoglobin A1c % 7.3 %
[2022-06-23 15:02] LABS: Cholesterol 258 mg/dL; HDL Cholesterol 34 mg/dL; LDL Cholesterol Calculated 165 mg/dl; Triglycerides 298 mg/dL
[2022-06-23 15:11] LABS: Free T4 (Free Thyroxine) 0.98 ng/dL (0.71-1.85)
== END 2022-06-23 10:07 | disposition home or self-care (01) ==
LOC: HO.LAB 10:06
PROVIDERS: PCP Internal Medicine; Visit Provider Internal Medicine Endocrinology, Diabetes & Metabolism
DX: E78.5 Hyperlipidemia, unspecified (principal)
CPT/HCPCS: 36415; 80061; 83036; 84439; 84443; 99202

== ENCOUNTER 2022-08-03 08:27 | Outpatient (REF) | payer MEDICAID, SELFPAY ==
--- NOTE | ~2022-08-03 | MM_ITS ---
EXAMINATION: MM SCREENING DIGITAL BREAST TOMOSYNTHESIS, BILATERAL CLINICAL INFORMATION: Screening. Asymptomatic. Benign left stereotactic biopsy 05/27/2019 (fibroadenomatous changes and associated microcalcifications). The lifetime risk of breast cancer based on the Tyrer-Cuzick Model is 7%. COMPARISON: Mammography: 07/16/2021, 05/19/2020, 12/25/2019, 05/27/2019, 05/21/2019, 05/14/2019, 05/08/2018. TECHNIQUE: Digital breast tomosynthesis is performed in both the craniocaudal and mediolateral oblique views along with computer-aided detection (CAD). Synthesized 2D images are generated from the tomosynthesis. FINDINGS: There are scattered areas of fibroglandular density (ACR BI-RADS breast composition Category b). Parenchymal pattern is similar to prior exams and there is no developing density or architectural abnormality. Biopsy clip marker again noted posterior central inner left breast. There are no significant masses, abnormal calcifications, or other abnormalities. The axilla and skin contours are unremarkable. No significant changes from prior exams. MM/MM tomosynthesis screening BI IMPRESSION: No mammographic evidence of malignancy. ASSESSMENT: BI-RADS 1: Negative RECOMMENDATION: Routine annual mammography screening. This patient's information was entered into a reminder system with a target due date for their next mammogram.
== END 2022-08-03 08:28 | disposition home or self-care (01) ==
LOC: HO.MAMMO 08:27
PROVIDERS: PCP Internal Medicine; Visit Provider Internal Medicine
DX: Z12.31 Encounter for screening mammogram for malignant neoplasm of breast (principal)
CPT/HCPCS: 77063; 77067

== ENCOUNTER → 2022-09-01 09:55 | Outpatient (BNVA) | payer MEDICAID, SELFPAY | PROVIDERS: PCP Internal Medicine; Visit Provider Dietitian, Registered | DX: E78.5 Hyperlipidemia, unspecified (principal) | CPT/HCPCS: 97802 ==

== ENCOUNTER 2022-09-14 08:01 | Outpatient (REF) | payer MEDICAID, SELFPAY ==
[2022-09-14 09:20] LABS: Cholesterol 208 mg/dL; HDL Cholesterol 33 mg/dL; LDL Cholesterol Calculated 116 mg/dl; Triglycerides 297 mg/dL
== END 2022-09-14 08:02 | disposition home or self-care (01) ==
LOC: HO.LAB 08:01
PROVIDERS: PCP Internal Medicine; Visit Provider Internal Medicine Endocrinology, Diabetes & Metabolism
DX: E78.5 Hyperlipidemia, unspecified (principal)
CPT/HCPCS: 36415; 80061

== ENCOUNTER 2022-09-16 09:30 | Outpatient (AMB) | payer MEDICAID, SELFPAY ==
--- NOTE | 2022-09-16 09:41 | A.OFFVIS_ITS ---
Intake Vital Signs 09/16/22 09:44 Height 5 ft Weight 185 lb 13.595 oz BMI 36.3 BP 102/70 Blood Pressure Location Rt brachial Position Sitting Pulse 79 Pulse Source Pulse Oximeter Intake Visit Reasons: Mixed Hyperlipidemia Intake Note: Patient present for Mixed Hyperlipidemia follow up visit. Cold Molding Press Operator Required: Yes Cold Molding Press Operator Language: Hand Glove Cleaner Name: Dominique, Medical Staff Information Interpreted: non-clinical & clinical Accompanied by: Self / Same As Patient Allergies No Known Allergies [No Known Allergies*] Allergy (Verified 09/16/22 09:45) Medication List - Last Reconciled 09/16/22 by Enrique Wells MD alcohol swabs (Alcohol Prep Pads) pad topical QID aspirin (Children's Aspirin) 81 mg PO DAILY atorvastatin 40 mg PO DAILY blood sugar diagnostic (FreeStyle Lite Strips) As directed fenofibrate micronized 134 mg PO DAILY fluticasone propionate 50 mcg/actuation 1 - 2 sprays intranasal DAILY PRN hydrochlorothiazide 25 mg PO QAM insulin glargine (Lantus U-100 Insulin) 38 units subcut QPM insulin lispro (Humalog U-100 Insulin) 14 units subcut QAM lancets (FreeStyle Lancets) As directed latanoprost 0.005% 1 drp ophthalmic (eye) BEDTIME losartan 100 mg PO DAILY multivitamin 1 tab PO QAM omega-3 acid ethyl esters 2 caps PO BID pen needle, diabetic (BD Tawanna 2nd Gen Pen Needle) As directed polyethylene glycol 3350 (Miralax) 17 grams PO DAILY PRN valacyclovir 1,000 mg PO DAILY HPI HPI Comments History of Present Illness Details This is a 52-year-old female referred to endocrinology for mixed hyperlipidemia. Dxed 2 yrs ago. There is no history of pancreatitis. There is no history of coronary artery disease or CVA . There is a known history of hyperlipidemia in the family in mother . She currently takes atorvastatin 40 mg q.d. , fenofibrate 140 mg and fish oils 2000 mg BID Patient does have a history of Type 2 diabetes for 2 yrs She currently takes insulin 2 yrs ago . also takes Jardiance . Metformin caused GI intolerance No recent hemoglobin A1c is been documented. [facility] Medical History (Updated 06/23/22 @ 10:16 by Enrique Wells MD) Diabetes History of COVID-19 Hyperlipidemia Hypertension Surgical History H/O colonoscopy H/O esophagogastroduodenoscopy Hx of tubal ligation S/P breast biopsy, left Family History Father No problems noted. Mother No problems noted. Social History Are you a primary director of medicare to a significant other at home: No Do you presently have visiting nurse or other home services: No Alcohol intake: never Patient Tobacco Use Status: Never used Tobacco Female Reproductive History Menstrual Age of Menarche: 9 Physical Exam Vital Signs: Last Vital Signs Pulse 79 09/16/22 09:44 BP 102/70 09/16/22 09:44 BMI result Body Mass Index 36.3 Assessment & Plan Assessment & Plan (1) Hyperlipidemia: Code(s): E78.5 - Hyperlipidemia, unspecified Plan: This is a 52-year-old female with a history of mixed hyperlipidemia currently being treated with a statin, fibrate and omega-3 fish oils. Rule out fair glycemic control exacerbating hypertriglyceridemia. The plan is to increase the atorvastatin to 80 mg q.d.. Continue to push diet and exercise . Will recheck lipid profile in 8 weeks. If HbA1c is not optimal at ,6.5 primary care provider could consider adding a G LP 1 agonist like Trulicity which might also have an affect on lowering triglycerides and lowering weight . Since patient did not bring her blood sugars in today, I am not managing her diabetic regimen would not initiate this today. Patient's primary care provider can review her blood sugars and anti Trulicity 0.75 mg Q weekly and titrate her insulin to avoid hypoglycemia. Alternatively, patient referred back for diabetic consult endocrinology. Either way better glycemic control might help lower triglycerides to goal. Orders: Orders Lipid Panel 6 Weeks E78.5 - Hyperlipidemia, unspecified Medications: New atorvastatin 80 mg PO DAILY 30 tabs 5RF Discontinued atorvastatin Discontinued Reason: Doctor's Order 40 mg PO DAILY 30 tabs 4RF Coding Level of Care Code Est Pt Level 3 (82933) Diagnoses Hyperlipidemia E78.5
[2022-09-16 09:44] VITALS: BP 102/70; PULSE 79; BMI 36.3
== END 2022-09-16 10:25 | disposition home or self-care (01) ==
PROVIDERS: PCP Internal Medicine; Referring Provider Internal Medicine; Visit Provider Internal Medicine Endocrinology, Diabetes & Metabolism
DX: E78.5 Hyperlipidemia, unspecified (principal)
CPT/HCPCS: 99213

== ENCOUNTER → 2022-09-16 09:30 | Outpatient (BNVA) | payer MEDICAID, SELFPAY | PROVIDERS: Visit Provider Internal Medicine Endocrinology, Diabetes & Metabolism | DX: E78.5 Hyperlipidemia, unspecified (principal) | CPT/HCPCS: 99212 ==

== ENCOUNTER 2022-10-11 10:53 | Outpatient (REF) | payer MEDICAID, SELFPAY ==
[2022-10-13 23:43] LABS: TS Negative Control Passed; TS Panel A 0; TS Panel B 0; TS Positive Control Passed; TSpotTB Negative (Negative)
== END 2022-10-11 10:54 | disposition home or self-care (01) ==
LOC: HO.CHCLDS 10:53
PROVIDERS: Visit Provider Internal Medicine
DX: Z00.00 Encounter for general adult medical examination without abnormal findings (principal); Z11.1 Encounter for screening for respiratory tuberculosis
CPT/HCPCS: 36415; 86481

== ENCOUNTER 2022-10-27 10:35 | Outpatient (AMB) | payer MEDICAID, SELFPAY ==
--- NOTE | 2022-10-27 10:46 | A.OFFVIS_ITS ---
Intake VS Expanded 10/27/22 10:47 Height 5 ft Weight 186 lb 4.65 oz BMI 36.4 Intake Visit Reasons: Hyperlipidemia Allergies No Known Allergies [No Known Allergies*] Allergy (Verified 09/16/22 09:45) HPI Nutrition Presentation Details Pt presents for MNT follow up for Hyperlipidemia . Pt was referred by Dr. Wells, travel assistant Pt reports working on gradual diet modifications, reducing on fried foods. Pt brings food articles to discuss. Today we will review lower fat meats/protein sources as well as reducing on simple sugars to continue lipid improvement. Most Recent Diabetes Results: Cholesterol 208 mg/dL 09/14/22 HDL Cholesterol 33 mg/dL 09/14/22 Triglycerides 297 mg/dL 09/14/22 [facility] Medical History (Updated 11/10/22 @ 08:[address], LDN) History of COVID-19 Hyperlipidemia Diabetes Hypertension Surgical History H/O colonoscopy H/O esophagogastroduodenoscopy Hx of tubal ligation S/P breast biopsy, left Family History Father No problems noted. Mother No problems noted. Social History Are you a primary career development counselor to a significant other at home: No Do you presently have visiting nurse or other home services: No Alcohol intake: never Patient Tobacco Use Status: Never used Tobacco Female Reproductive History Menstrual Age of Menarche: 9 Assessment & Plan Assessment & Plan (1) Hyperlipidemia: Code(s): E78.5 - Hyperlipidemia, unspecified Qualifiers: Hyperlipidemia type: mixed hyperlipidemia Qualified Code(s): E78.2 - Mixed hyperlipidemia Plan: used wt : 85 kg Est kcal needs as per MSJ: 1888 (40% carb, 30% protein/fat) Est fluid needs as per 25-30 ml/d: 2125- 2550 Est prot per day as per 1 g/kg bw: 85 Recommend fiber intake : 8-10 g per day and gradually increase to 25-28 g per day for women as tolerated Recommend sodium intake per day: less than 2000 mg Educated patient on: ( R = reviewed V = verbalizes understanding N/R = needs review N/A = not applicable * Food sources of carbohydrate, adequate serving sizes and its role in various health conditions: R * Differences between complex carbohydrates a simple carbohydrates, role of fiber in diet: R * Differences between types of fats and role in diet (mono on saturated fat fatty acids, saturated fatty acids, trans fats): R * Food sources of sodium in salt and healthy modifications for heart health in kidney health: NR * Vitamins and minerals: R * Healthy plate method concept: R * Physical activity: Benefits a precaution: R * Patient Instructions: Continue reducing on fat intake (choose lower fat meats/proteins, read labels and choose lower fat food options particularly for canned meats). Include fish, canned ok , twice a week Reduce on high fat sauces- dilute with vegetable broths, water, tomato sauces Continue working on reducing portion sizes of starches and keeping blood sugar in control (fasting blood sugar 80-130 and 2 hours after a meal 80-180)- contact your doctor if blood sugars are below or above these targets for further asessement. Coding Level of Care Code Nutr Indiv Subseq (29866) Diagnoses Mixed hyperlipidemia E78.2 Hyperlipidemia type: mixed hyperlipidemia Time Spent (min) 30
[2022-10-27 10:47] VITALS: BMI 36.4
== END 2022-10-27 11:25 | disposition home or self-care (01) ==
PROVIDERS: PCP Internal Medicine; Visit Provider Dietitian, Registered
DX: E78.2 Mixed hyperlipidemia (principal)

== ENCOUNTER → 2022-10-27 10:35 | Outpatient (BNVA) | payer MEDICAID, SELFPAY | PROVIDERS: PCP Internal Medicine; Visit Provider Dietitian, Registered | DX: E78.5 Hyperlipidemia, unspecified (principal); E11.9 Type 2 diabetes mellitus without complications; Z71.3 Dietary counseling and surveillance | CPT/HCPCS: 97803 ==

== ENCOUNTER 2023-01-25 10:43 | Outpatient (AMB) | payer MEDICAID, SELFPAY ==
[2023-01-25 10:54] VITALS: BMI 36.1
--- NOTE | 2023-01-25 10:54 | A.OFFVIS_ITS ---
Intake VS Expanded 01/25/23 10:54 Height 5 ft Weight 184 lb 11.958 oz BMI 36.1 Intake Visit Reasons: [id number] Allergies No Known Allergies [No Known Allergies*] Allergy (Verified 09/16/22 09:45) HPI Nutrition Presentation Details Pt presents for MNT f/u for hyperlipidemea with T2DM Pt reports working on reducing fat intake, less fried foods in general Pt reports reading food labels and choosing foods lower in cholesterol and fat. Today will review relationship of sugars to cholesterol level Most Recent Diabetes Results: Cholesterol 208 mg/dL 09/14/22 HDL Cholesterol 33 mg/dL 09/14/22 Triglycerides 297 mg/dL 09/14/22 [facility] Medical History (Updated 11/10/22 @ 08:50 by Gogo Brumfield, RD, LDN) History of COVID-19 Hyperlipidemia Diabetes Hypertension Surgical History H/O colonoscopy H/O esophagogastroduodenoscopy Hx of tubal ligation S/P breast biopsy, left Family History Father No problems noted. Mother No problems noted. Social History Are you a primary career development associate to a significant other at home: No Do you presently have visiting nurse or other home services: No Alcohol intake: never Patient Tobacco Use Status: Never used Tobacco Female Reproductive History Menstrual Age of Menarche: 9 Assessment & Plan Assessment & Plan (1) Hyperlipidemia: Code(s): E78.5 - Hyperlipidemia, unspecified Qualifiers: Hyperlipidemia type: mixed hyperlipidemia Qualified Code(s): E78.2 - Mixed hyperlipidemia Plan: used wt : 85 kg Est kcal needs as per MSJ: 1888 (40% carb, 30% protein/fat) Est fluid needs as per 25-30 ml/d: 2125- 2550 Est prot per day as per 1 g/kg bw: 85 Recommend fiber intake : 8-10 g per day and gradually increase to 25-28 g per day for women as tolerated Recommend sodium intake per day: less than 2000 mg Educated patient on: ( R = reviewed V = verbalizes understanding N/R = needs review N/A = not applicable * Food sources of carbohydrate, adequate serving sizes and its role in various health conditions: R * Differences between complex carbohydrates a simple carbohydrates, role of fiber in diet: R * Differences between types of fats and role in diet (mono on saturated fat fatty acids, saturated fatty acids, trans fats): R * Food sources of sodium in salt and healthy modifications for heart health in kidney health: NR * Vitamins and minerals: R * Healthy plate method concept: R * Physical activity: Benefits a precaution: R * Patient Instructions: Try meal substitution at lunch- see list of possible choices/flavores- coupons provided Continue reducing on sugar in the foods/meals (condensed milk, pastries and the like) Coding Level of Care Code Nutr Indiv Subseq (30282) Diagnoses Mixed hyperlipidemia E78.2 Hyperlipidemia type: mixed hyperlipidemia Time Spent (min) 20
== END 2023-01-25 11:25 | disposition home or self-care (01) ==
PROVIDERS: PCP Internal Medicine; Visit Provider Dietitian, Registered
DX: E78.2 Mixed hyperlipidemia (principal)

== ENCOUNTER → 2023-01-25 10:43 | Outpatient (BNVA) | payer MEDICAID, SELFPAY | PROVIDERS: PCP Internal Medicine; Visit Provider Dietitian, Registered | DX: E78.2 Mixed hyperlipidemia (principal); Z71.3 Dietary counseling and surveillance | CPT/HCPCS: 97803 ==

== ENCOUNTER 2023-02-13 08:25 | Outpatient (REF) | payer MEDICAID, SELFPAY ==
[2023-02-13 10:47] LABS: Cholesterol 212 mg/dL (<200); HDL Cholesterol 33 mg/dL (>40); Triglycerides 407 mg/dL (<150)
== END 2023-02-13 08:26 | disposition home or self-care (01) ==
LOC: HO.LAB 08:25
PROVIDERS: PCP Internal Medicine; Visit Provider Internal Medicine Endocrinology, Diabetes & Metabolism
DX: E78.5 Hyperlipidemia, unspecified (principal)
CPT/HCPCS: 36415; 80061

== ENCOUNTER 2023-02-16 09:13 | Outpatient (REF) | payer MEDICAID, SELFPAY ==
[2023-02-16 10:01] LABS: Estimated Average Glucose 151 mg/dL; Hemoglobin A1c % 6.9 % (<6.0)
== END 2023-02-16 09:14 | disposition home or self-care (01) ==
LOC: HO.LAB 09:13
PROVIDERS: PCP Internal Medicine; Visit Provider Internal Medicine Endocrinology, Diabetes & Metabolism
DX: E78.2 Mixed hyperlipidemia (principal); E11.9 Type 2 diabetes mellitus without complications
CPT/HCPCS: 36415; 82947; 83036; 99212

== ENCOUNTER 2023-02-16 10:01 | Outpatient (AMB) | payer MEDICAID, SELFPAY ==
--- NOTE | 2023-02-16 10:08 | MHC.OFFVIS ---
Intake Vital Signs 02/16/23 10:09 Height 5 ft Weight 186 lb 11.704 oz BMI 36.5 BP 138/84 Blood Pressure Location Rt brachial Position Sitting Pulse 84 Pulse Source Pulse Oximeter Intake Visit Reasons: f/u hyperlipidemia-CONFIRMED Intake Note: Patient present today to follow up on Type 2 Diabetes Mellitus and Hyperlipidemia. Last Diabetic Eye exam: has an appt coming up March 2023 Last Podiatry Visit: Does not see a Tribal Judge. Random Glucose: 136 mg/dl HgA1C: 6.9% 02/16/23 Engineering Specialist Required: Yes Engineering Specialist Language: Casing Blower Name: Audra, Medical Staff CMI Information Interpreted: non-clinical & clinical Accompanied by: Self / Same As Patient Allergies No Known Allergies [No Known Allergies*] Allergy (Verified 02/16/23 10:11) HPI HPI Comments History of Present Illness Details This is a 52-year-old female referred to endocrinology for mixed hyperlipidemia. Dxed 2 yrs ago. There is no history of pancreatitis. There is no history of coronary artery disease or CVA . There is a known history of hyperlipidemia in the family in mother . She is also here today for care of her type 2 diabetes She currently takes atorvastatin 80 mg q.d. , fenofibrate 140 mg and fish oils 2000 mg BID Patient does have a history of Type 2 diabetes for 2 yrs She currently takes insulin 38 units Lantus and 14 units of Humalog in AM . also takes Jardiance 25 mg QD . Metformin caused GI intolerance No recent hemoglobin A1c is been documented. She did not bring glucometer or log book to the visit. Has visit with Ophthalmology in March 2023 No hypoglycemia [facility] Medical History (Updated 02/16/23 @ 10:33 by Enrique Wells MD) Type 2 diabetes mellitus History of COVID-19 Hyperlipidemia Diabetes Hypertension Surgical History Hx of tubal ligation H/O esophagogastroduodenoscopy H/O colonoscopy S/P breast biopsy, left Family History Father No problems noted. Mother No problems noted. Social History Are you a primary healthcare economics manager to a significant other at home: No Do you presently have visiting nurse or other home services: No Alcohol intake: never Patient Tobacco Use Status: Never used Tobacco Female Reproductive History Menstrual Age of Menarche: 9 Physical Exam Vital Signs: Last Vital Signs Pulse 84 02/16/23 10:09 BP 138/84 02/16/23 10:09 BMI result Body Mass Index 36.5 Absence of Cushingoid features. Absence of acromegalic features. Neck exam reveals nl size thyroid about 15 gms. No thyroid nodules palpable. No carotid bruits present. Lungs CTA. Heart S1 S2, Reg R/R. No M/R/ G. Skin exam reveals absence of vitiligo or acanthosis nigricans. Abdominal exam reveals Soft NT/ND with NA BS. No organomegaly present. Neck Other: . Extrem Other: Visual exam of foot performed. No ulcerations or open lesions. No onchomycosis, no callouses.Pulses 2 + distally Sensation intact to monofilament exam. Vibratory sensation sensed is intact with 128 Hz tuning fork Assessment & Plan Assessment & Plan (1) Hyperlipidemia: Code(s): E78.5 - Hyperlipidemia, unspecified Qualifiers: Hyperlipidemia type: mixed hyperlipidemia Qualified Code(s): E78.2 - Mixed hyperlipidemia Plan: Management as per type 2 diabetes (2) Type 2 diabetes mellitus: Code(s): E11.9 - Type 2 diabetes mellitus without complications Plan: This is a 52-year-old female with history of type 2 diabetes being treated with Jardiance and basal-bolus insulin with good but not optimal glycemic control and no known microvascular or macrovascular complications The plan is to have the patient start a sensor namely Murray 2. Will have patient meet with personal development educator. Once we have the sensor in place will initiate a G LP 1 like Trulicity and titrate insulin appropriately. Will continue to follow lipid profile with possible benefit of addition of GLP 1 in terms of lowering triglycerides in the future Orders: Referrals Diabetes Education Referral E11.9 - Type 2 diabetes mellitus without complications Medications: New flash glucose sensor (FreeStyle Murray 2 Sensor kit) As directed change every 14 days 2 ea 5RF flash glucose scanning reader (FreeStyle Murray 2 [place]) As directed 1 ea 0RF Coding Level of Care Code Est Pt Level 4 (71726) Diagnoses Mixed hyperlipidemia E78.2 Hyperlipidemia type: mixed hyperlipidemia Type 2 diabetes mellitus E11.9
[2023-02-16 10:09] VITALS: BP 138/84; PULSE 84; BMI 36.5
[2023-02-16 10:35] LABS: Glucose, Whole Blood 136 mg/dL (60-115)
== END 2023-02-16 10:45 | disposition home or self-care (01) ==
PROVIDERS: PCP Internal Medicine; Visit Provider Internal Medicine Endocrinology, Diabetes & Metabolism
DX: E78.2 Mixed hyperlipidemia (principal); E11.9 Type 2 diabetes mellitus without complications
CPT/HCPCS: 99214

== ENCOUNTER 2023-03-03 08:33 | Outpatient (AMB) | payer MEDICAID, SELFPAY ==
--- NOTE | 2023-03-03 09:49 | MHC.AMDMED ---
Intake Intake Visit Reasons: T2DM Allergies No Known Allergies [No Known Allergies*] Allergy (Verified 02/16/23 10:11) [facility] Comprehensive Diabetes Asmnt Most Recent Diabetes Results: Hemoglobin A1c > 14.0 % 08/30/19 Microalb/Creat Ratio 12.5 ug/mg cr 03/01/18 Cholesterol 212 mg/dL (<200) H 02/13/23 HDL Cholesterol 33 mg/dL (>40) L 02/13/23 Triglycerides 407 mg/dL (<150) H 02/13/23 Creatinine 0.83 MG/DL (0.5-1.4) 08/14/18 Blood Urea Nitrogen 11 MG/DL (9-16) 08/14/18 Sodium 142 MMOL/L (135-145) 08/14/18 Potassium 4.2 MMOL/L (3.3-5.1) 08/14/18 Chloride 105 MMOL/L (96-108) 08/14/18 Calcium 9.8 MG/DL (8.4-10.2) 08/14/18 AST 27 U/L (5-31) 03/01/18 ALT 30 U/L (0-31) 03/01/18 Total Protein 7.4 G/DL (6.5-8.0) 03/01/18 Albumin 4.2 G/DL (3.5-5.0) 03/01/18 [facility] Medical History (Updated 02/16/23 @ 10:33 by Enrique Wells MD) Type 2 diabetes mellitus History of COVID-19 Hyperlipidemia Diabetes Hypertension Surgical History Hx of tubal ligation H/O esophagogastroduodenoscopy H/O colonoscopy S/P breast biopsy, left Family History Father No problems noted. Mother No problems noted. Social History Are you a primary physician primary care sports medicine to a significant other at home: No Do you presently have visiting nurse or other home services: No Alcohol intake: never Patient Tobacco Use Status: Never used Tobacco Female Reproductive History Menstrual Age of Menarche: 9 Assessment & Plan Assessment & Plan (1) Type 2 diabetes mellitus: Code(s): E11.9 - Type 2 diabetes mellitus without complications Plan: Diabetes self-management education and support participation record Assessment/scale: 1= needs instructed? 2= needs review? 3= comprehend keep point? 4= demonstrates understanding/ competent? NC= Not Covered Topics Learning Objective: Initial visit Initial or post srvc Initial or post srvc Initial or post srvc Initial or post srvc Initial or post srvc Post srvc Comments Pre Edu-assessment/plan Outcome or reassess Outcome or reassess Outcome or reassess Outcome or reassess Outcome or reassess Outcome or reassess Diabetes pathophysiology 1 Healthy eating 2 Being active 2 Taking medication 2 Monitoring glucose 2 Acute complication Chronic complicated Lifestyle and healthy coping Diabetes distress in support ?Diabetes pathophysiology: ?Defined diabetes med identify own type of diabetes; list 3 options for treating diabetes Healthy eating: ?Described effect of type, amount and ?timing of food on blood glucose; list 3 methods for planning meal Being active: ?State effect of exercise on blood glucose level Taking medication: ?State effect of diabetes medications on diabetes; name diabetes medications taking, action and side effects Monitoring glucose: ?Identify recommended blood glucose targets and personal target Acute complication: ?List symptoms and treatment of hyper and hypoglycemia, DKA, sick day guidelines and guidelines for severe weather or situations of crisis and diabetes supply manage Chronic complication: ?To find the relationship of blood glucose levels to long-term complications of diabetes in screening and preventative measures Lifestyle and healthy coping: ?Described lifestyle and healthy coping strategies to rule out diabetes self-management Diabetes to stress and support: ?Recognize Diabetes to stress and be able to identified support options Learning objectives: The patient was provided with verbal and written education on the following topics as outlined below. The patient met all learning objectives and was able to verbalize understanding and provide teach back of education topics discussed . The patient was provided with the opportunity to ask questions and all questions were answered. Patient Assessment Assess patient education level/literacy/barriers Patient questions/concerns, patient's last A1c 6.9% 02/16/2023 Patient is currently taking Lantus 38 units daily Humalog 14 units prior to meals Message sent to Dr. Wells regarding patient started Trulicity Patient denies hypoglycemia, reviewed how to treat hypoglycemia at today's visit in the event patient as you diabetes medication. What is Diabetes? Pathophysiology How the body produces and uses insulin Identify type of DM Risk factors Signs of Diabetes Brief overview of Diabetes Management Monitoring blood sugar Following a meal plan Regular exercise Maintaining a healthy weight Taking medication as needed Members of the care team (PCP, RN, MA, RD, CDE, optical laboratory technician) Blood glucose monitoring When/how often to test Target blood sugar ranges Patient uses freestyle Murray 2 Patient above target 34% Patient at target 66% Patient below target 0% Average glucose for the past 10 days 173 mg/dL Introduction to Nutrition Importance of healthy diet in managing DM Diet is personalized to individual preference Review patient?s regular diet/food preferences Who prepares meals/does food shopping/ Dining out?/ Barriers? How diet effects glucose Eating 3 balanced meals a day with small, healthy snacks between meals Review food groups Carbohydrates: What is a carbohydrate/Which food/food groups are considered carbohydrates Effect of carbohydrates on blood glucose Portion sizes Reading food labels Basic carb counting (if applicable per nursing assessment) Plate method Meal planning Recommendations: Follow plate method, consistent carbs and read nutritional labels. Smart Goal: Patient will scan sensor every 4-6 hours while awake Educational Materials: The patient was provided with the following written educational materials: Planning Healthy Meals Handout Patient Response to instructions: Comprehension of Instructions: Fair Readiness to make changes: Contemplation How confident they feel about making changes: Positive Include regular daily activity. ADA recommends 30 minutes of exercise 5 days a week. Weight loss talk to PCP or Education Analyst before starting new plan. Test blood sugar as directed; Fasting and 2hpp largest meal. Watch trends in results. Utilize results and to assess how food, physical activity and medications affect blood sugar results. Bring glucometer or CGM to next visit. Be knowledgeable about diabetes medication, its action, side effects, efficacy, toxicity, prescribed dosage, appropriate timing and frequency of administration, effect of missed and delayed doses and instructions for storage, travel and safety. Problem solving techniques to monitor hypo/hyperglycemia episodes and treatments. Reduce risk reduction behaviors, smoking cessation, regular eye, foot and dental examinations. Coding Level of Care Code Est Pt Level 1 (95149) Diagnoses Type 2 diabetes mellitus E11.9
== END 2023-03-03 09:52 | disposition home or self-care (01) ==
PROVIDERS: PCP Internal Medicine; Visit Provider Registered Nurse Diabetes Educator
DX: E11.9 Type 2 diabetes mellitus without complications (principal)

== ENCOUNTER → 2023-03-03 08:33 | Outpatient (BNVA) | payer MEDICAID, SELFPAY | PROVIDERS: PCP Internal Medicine; Visit Provider Registered Nurse Diabetes Educator | DX: E11.9 Type 2 diabetes mellitus without complications (principal) | CPT/HCPCS: 99211 ==

== ENCOUNTER 2023-04-03 08:58 | Outpatient (AMB) | payer MEDICAID, SELFPAY ==
--- NOTE | 2023-04-03 09:05 | MHC.AMDMED ---
Intake Intake Visit Reasons: T2DM/CONFIRMED Allergies No Known Allergies [No Known Allergies*] Allergy (Verified 02/16/23 10:11) HPI Comprehensive Diabetes Asmnt Most Recent Diabetes Results: Hemoglobin A1c > 14.0 % 08/30/19 Microalb/Creat Ratio 12.5 ug/mg cr 03/01/18 Cholesterol 212 mg/dL (<200) H 02/13/23 HDL Cholesterol 33 mg/dL (>40) L 02/13/23 Triglycerides 407 mg/dL (<150) H 02/13/23 Creatinine 0.83 MG/DL (0.5-1.4) 08/14/18 Blood Urea Nitrogen 11 MG/DL (9-16) 08/14/18 Sodium 142 MMOL/L (135-145) 08/14/18 Potassium 4.2 MMOL/L (3.3-5.1) 08/14/18 Chloride 105 MMOL/L (96-108) 08/14/18 Calcium 9.8 MG/DL (8.4-10.2) 08/14/18 AST 27 U/L (5-31) 03/01/18 ALT 30 U/L (0-31) 03/01/18 Total Protein 7.4 G/DL (6.5-8.0) 03/01/18 Albumin 4.2 G/DL (3.5-5.0) 03/01/18 [facility] Medical History (Updated 02/16/23 @ 10:33 by Enrique Wells MD) Type 2 diabetes mellitus History of COVID-19 Hyperlipidemia Diabetes Hypertension Surgical History Hx of tubal ligation H/O esophagogastroduodenoscopy H/O colonoscopy S/P breast biopsy, left Family History Father No problems noted. Mother No problems noted. Social History Are you a primary pet caretaker to a significant other at home: No Do you presently have visiting nurse or other home services: No Alcohol intake: never Patient Tobacco Use Status: Never used Tobacco Female Reproductive History Menstrual Age of Menarche: 9 Assessment & Plan Assessment & Plan (1) Type 2 diabetes mellitus: Code(s): E11.9 - Type 2 diabetes mellitus without complications Plan: Diabetes self-management education and support participation record Assessment/scale: 1= needs instructed? 2= needs review? 3= comprehend keep point? 4= demonstrates understanding/ competent? NC= Not Covered Topics Learning Objective: Initial visit Initial or post srvc Initial or post srvc Initial or post srvc Initial or post srvc Initial or post srvc Post srvc Comments Pre Edu-assessment/plan Outcome or reassess Outcome or reassess Outcome or reassess Outcome or reassess Outcome or reassess Outcome or reassess Diabetes pathophysiology 1 3 Healthy eating 2 Being active 2 Taking medication 2 3 Monitoring glucose 2 3 Acute complication 1 Chronic complicated 2 Lifestyle and healthy coping 1 Diabetes distress in support 1 ?Diabetes pathophysiology: ?Defined diabetes med identify own type of diabetes; list 3 options for treating diabetes Healthy eating: ?Described effect of type, amount and ?timing of food on blood glucose; list 3 methods for planning meal Being active: ?State effect of exercise on blood glucose level Taking medication: ?State effect of diabetes medications on diabetes; name diabetes medications taking, action and side effects Monitoring glucose: ?Identify recommended blood glucose targets and personal target Acute complication: ?List symptoms and treatment of hyper and hypoglycemia, DKA, sick day guidelines and guidelines for severe weather or situations of crisis and diabetes supply manage Chronic complication: ?To find the relationship of blood glucose levels to long-term complications of diabetes in screening and preventative measures Lifestyle and healthy coping: ?Described lifestyle and healthy coping strategies to rule out diabetes self-management Diabetes to stress and support: ?Recognize Diabetes to stress and be able to identified support options Learning objectives: The patient was provided with verbal and written education on the following topics as outlined below. Assess patient education level/literacy/barriers Patient questions/concerns, patient has not started Trulicity, instructed patient to contact pharmacy to find out why they have not filled Trulicity prescription that was sent on 03/07/23. In addition encourage patient to scan sensor more frequently. Reviewed with patient common side effects of Trulicity, reviewed how to use Trulicity pen at today's visit Patient agreed to contact pharmacy supervisor opening and picking Trulicity The patient met all learning objectives and was able to verbalize understanding and provide teach back of education topics discussed . The patient was provided with the opportunity to ask questions and all questions were answered. Topics covered in today?s session included: Medications (If applicable) Name of medication? Dosing/administration instructions? Mechanism of action? Potential side effects? Potential adverse reaction and appropriate treatment? Review onset, peak, duration Assess for concerns re: insurance coverage, cost, barriers to compliance Insulin/Injectables (If applicable) Storage/care of insulin?? Injection sites? Site rotation? Onset, peak, duration Drawing up insulin? Injecting insulin/other injectables? Sharps disposal Continuous blood glucose monitoring (if applicable) Hypoglycemia and Hyperglycemia Signs and symptoms? Causes?? Treatment? Preventing hypoglycemia? When to seek medical attention Blood glucose targets and how you feel when your blood glucose is in and out of your target ranges. Monitoring and knowing your A1C. What can make blood glucose go up and down and preventing high and low blood glucose. Review of blood sugar targets in expected goal range and outside of expected goal range. Problem solving and preventing hyper/hypoglycemia. Sick day management of diabetes. Using blood sugar results in decision making process in managing diabetes. ?Patient was receptive to information provided and participated in the discussion. Asked?appropriate questions and demonstrated good understanding of the topics discussed.? ? Educational Materials: The patient was provided with the following written educational materials: Target Goal handout Smart Goal Assessment:? Patient will scan sensor every 4-6 hours while awake Pt met goal less than 25% Continued Smart Goal: Patient will scan sensor every 4-6 hours while awake Patient Response to instructions: Comprehension of Instructions: Readiness to make changes:? How confident they feel about making changes: Patient Instructions: If you are unable to supervisor opening and picking Trulicity prescription please contact clinic Follow-up with Diabetes Education nurse in 2 months Coding Level of Care Code Est Pt Level 1 (74070) Diagnoses Type 2 diabetes mellitus E11.9
== END 2023-04-03 09:29 | disposition home or self-care (01) ==
PROVIDERS: PCP Internal Medicine; Visit Provider Registered Nurse Diabetes Educator
DX: E11.9 Type 2 diabetes mellitus without complications (principal)

== ENCOUNTER → 2023-04-03 08:58 | Outpatient (BNVA) | payer MEDICAID, SELFPAY | PROVIDERS: PCP Internal Medicine; Visit Provider Registered Nurse Diabetes Educator | DX: E11.9 Type 2 diabetes mellitus without complications (principal) | CPT/HCPCS: 99211 ==

== ENCOUNTER 2023-04-27 10:23 | Outpatient (AMB) | payer MEDICAID, SELFPAY ==
[2023-04-27 10:42] VITALS: BMI 36.5
--- NOTE | 2023-04-27 10:42 | A.OFFVIS_ITS ---
Intake VS Expanded 04/27/23 10:42 Height 5 ft Weight 186 lb 11.704 oz BMI 36.5 Intake Visit Reasons: T2DM/hyperlipidemia/LVM Allergies No Known Allergies [No Known Allergies*] Allergy (Verified 02/16/23 10:11) HPI Nutrition Presentation Details Pt presents for MNT f/u for hyperlipidemia Pt reports doing well. Acknowledges dietary indiscretions over holiday. Today will review low fat diet modifications Most Recent Diabetes Results: Cholesterol 212 mg/dL (<200) H 02/13/23 HDL Cholesterol 33 mg/dL (>40) L 02/13/23 Triglycerides 407 mg/dL (<150) H 02/13/23 [facility] Medical History (Updated 02/16/23 @ 10:33 by Enrique Wells MD) Type 2 diabetes mellitus History of COVID-19 Hyperlipidemia Diabetes Hypertension Surgical History Hx of tubal ligation H/O esophagogastroduodenoscopy H/O colonoscopy S/P breast biopsy, left Family History Father No problems noted. Mother No problems noted. Social History Are you a primary career transition specialist to a significant other at home: No Do you presently have visiting nurse or other home services: No Alcohol intake: never Patient Tobacco Use Status: Never used Tobacco Female Reproductive History Menstrual Age of Menarche: 9 Assessment & Plan Assessment & Plan (1) Hyperlipidemia: Code(s): E78.5 - Hyperlipidemia, unspecified Qualifiers: Hyperlipidemia type: mixed hyperlipidemia Qualified Code(s): E78.2 - Mixed hyperlipidemia Plan: used wt : 85 kg (04/2023) Est kcal needs as per MSJ: 1888 (40% carb, 30% protein/fat) Est fluid needs as per 25-30 ml/d: 2125- 2550 Est prot per day as per 1 g/kg bw: 85 Recommend fiber intake : 8-10 g per day and gradually increase to 25-28 g per day for women as tolerated Recommend sodium intake per day: less than 2000 mg Educated patient on: ( R = reviewed V = verbalizes understanding N/R = needs review N/A = not applicable * Food sources of carbohydrate, adequate serving sizes and its role in various health conditions: R * Differences between complex carbohydrates a simple carbohydrates, role of fiber in diet: R * Differences between types of fats and role in diet (mono on saturated fat fatty acids, saturated fatty acids, trans fats): R * Food sources of sodium in salt and healthy modifications for heart health in kidney health: R * Vitamins and minerals: R * Healthy plate method concept: R * Physical activity: Benefits a precaution: R * Patient Instructions: HAve 2 fruits a day replacing pastries/cookies to reduce on cholesterol/triglycerides Dilute juices with wate Continue working n reducing fats (fried foods, pasties, high fat meats, choose low fat protein foods - remove skins from poultry, beef and other animal, include fish twice a week replacing highly processed meats (sausages, mortadella dn the like) - see list of low fat food options abstain from alcoholic beverages Coding Level of Care Code Nutr Indiv Subseq (60055) Diagnoses Mixed hyperlipidemia E78.2 Hyperlipidemia type: mixed hyperlipidemia Time Spent (min) 30
== END 2023-04-27 11:19 | disposition home or self-care (01) ==
PROVIDERS: PCP Internal Medicine; Visit Provider Dietitian, Registered
DX: E78.2 Mixed hyperlipidemia (principal)

== ENCOUNTER → 2023-04-27 10:23 | Outpatient (BNVA) | payer MEDICAID, SELFPAY | PROVIDERS: PCP Internal Medicine; Visit Provider Dietitian, Registered | DX: E78.2 Mixed hyperlipidemia (principal) | CPT/HCPCS: 97803 ==

== ENCOUNTER 2023-06-05 09:29 | Outpatient (AMB) | payer MEDICAID, SELFPAY ==
--- NOTE | 2023-06-05 10:00 | A.OFFVIS_ITS ---
Intake Intake Visit Reasons: DM Snow Maker Required: Yes Snow Maker Language: Circuit Board Drafter Name: Hellen [facility] [place] Information Interpreted: non-clinical & clinical Accompanied by: Self / Same As Patient Allergies No Known Allergies [No Known Allergies*] Allergy (Verified 02/16/23 10:11) HPI Comprehensive Diabetes Asmnt Most Recent Diabetes Results: Hemoglobin A1c > 14.0 % 08/30/19 Microalb/Creat Ratio 12.5 ug/mg cr 03/01/18 Cholesterol 212 mg/dL (<200) H 02/13/23 HDL Cholesterol 33 mg/dL (>40) L 02/13/23 Triglycerides 407 mg/dL (<150) H 02/13/23 Creatinine 0.83 MG/DL (0.5-1.4) 08/14/18 Blood Urea Nitrogen 11 MG/DL (9-16) 08/14/18 Sodium 142 MMOL/L (135-145) 08/14/18 Potassium 4.2 MMOL/L (3.3-5.1) 08/14/18 Chloride 105 MMOL/L (96-108) 08/14/18 Calcium 9.8 MG/DL (8.4-10.2) 08/14/18 AST 27 U/L (5-31) 03/01/18 ALT 30 U/L (0-31) 03/01/18 Total Protein 7.4 G/DL (6.5-8.0) 03/01/18 Albumin 4.2 G/DL (3.5-5.0) 03/01/18 [facility] Medical History (Updated 02/16/23 @ 10:33 by Enrique Wells MD) Type 2 diabetes mellitus History of COVID-19 Hyperlipidemia Diabetes Hypertension Surgical History Hx of tubal ligation H/O esophagogastroduodenoscopy H/O colonoscopy S/P breast biopsy, left Family History Father No problems noted. Mother No problems noted. Social History Are you a primary care navigator to a significant other at home: No Do you presently have visiting nurse or other home services: No Alcohol intake: never Patient Tobacco Use Status: Never used Tobacco Female Reproductive History Menstrual Age of Menarche: 9 Assessment & Plan Assessment & Plan (1) Type 2 diabetes mellitus: Code(s): E11.9 - Type 2 diabetes mellitus without complications Plan: Diabetes self-management education and support participation record Assessment/scale: 1= needs instructed? 2= needs review? 3= comprehend keep point? 4= demonstrates understanding/ competent? NC= Not Covered Topics Learning Objective: Initial visit Initial or post srvc Initial or post srvc Initial or post srvc Initial or post srvc Initial or post srvc Post srvc Comments Pre Edu-assessment/plan Outcome or reassess Outcome or reassess Outcome or reassess Outcome or reassess Outcome or reassess Outcome or reassess Diabetes pathophysiology 1 3 Healthy eating 2 3 Being active 2 3 Taking medication 2 3 Monitoring glucose 2 3 Acute complication 1 3 Chronic complicated 2 3 Lifestyle and healthy coping 1 2 Diabetes distress in support 1 3 ?Diabetes pathophysiology: ?Defined diabetes med identify own type of diabetes; list 3 options for treating diabetes Healthy eating: ?Described effect of type, amount and ?timing of food on blood glucose; list 3 methods for planning meal Being active: ?State effect of exercise on blood glucose level Taking medication: ?State effect of diabetes medications on diabetes; name diabetes medications taking, action and side effects Monitoring glucose: ?Identify recommended blood glucose targets and personal target Acute complication: ?List symptoms and treatment of hyper and hypoglycemia, DKA, sick day guidelines and guidelines for severe weather or situations of crisis and diabetes supply manage Chronic complication: ?To find the relationship of blood glucose levels to long- term complications of diabetes in screening and preventative measures Lifestyle and healthy coping: ?Described lifestyle and healthy coping strategies to rule out diabetes self-management Diabetes to stress and support: ?Recognize Diabetes to stress and be able to identified support options Learning objectives: Learning objectives: The patient was provided with verbal and written education on the following topics as outlined below. The patient met all learning objectives and was able to verbalize understanding and provide teach back of education topics discussed . The patient was provided with the opportunity to ask questions and all questions were answered. Patient Assessment Assess patient education level/literacy/barriers Patient questions/concerns, patient's reports she started Trulicity at the end of March 2023, reports she had initially feelings of nausea which have which improved since beginning medication. Patient stated this visit she feels she does not need the Trulicity. Instructed patient she can discuss this with Dr. Wells at his upcoming on 06/21/2023. At that visit patient will be due for next A1c Exercise Medical clearance Effect of exercise on blood sugar Start slowly and gradually increase pace/duration over time Goal amount of exercise Checking blood glucose/have a source of carbs with you Medications (If applicable) * Name of medication * Dosing/administration instructions * Mechanism of action * Potential side effects * Potential adverse reaction and appropriate treatment * Review onset, peak, duration Assess for concerns re: insurance coverage, cost, barriers to compliance Insulin/Injectables (If applicable) * Storage/care of insulin * Injection sites * Site rotation * Onset, peak, duration * Drawing up insulin * Injecting insulin/other injectables * Sharps disposal Continuous blood glucose monitoring (if applicable) Hypoglycemia and Hyperglycemia * Signs and symptoms * Causes * Treatment * Preventing hypoglycemia * When to seek medical attention Medical alert bracelet Lifestyle * Work * Travel * Stress management * Problem solving Know your goals * A1C * Blood sugar targets * Blood pressure * Cholesterol/LDL Urine microalbumin Smart Goal Assessment: Unable to assess smart goal patient did not bring meter to today's visit New Goal:? Bring glucose meter to every [facility] Educational Materials: The patient was provided with the following written educational materials: ADCES7 Self-Care Behaviors Reducing Risks is [place] Patient Response to instructions: Comprehension of Instructions: fair Readiness to make changes: Contemplation How confident they feel about making changes: fair Patient Instructions: Incluir actividad diaria regular. ADA recomienda 30 minutos de ejercicio 5 d?as a la semana. P?rdida de peso, hable con el PCP o el cardi?logo antes de comenzar un nuevo plan. Mida el nivel de az?car en la bipin seg?n las indicaciones; Ayuno y comida m?s georgina de 2hpp. Observe las tendencias en los resultados. Utilice los resultados y eval?e c?mo los alimentos, la actividad f?shraddha y los medicamentos afectan los resultados de az?car en la bipin. Lleve el gluc?metro o CGM a la pr?xima visita. Conocer los medicamentos para la diabetes, richards acci?n, los efectos secundarios, la eficacia, la toxicidad, la dosis prescrita, el momento y la frecuencia de administraci?n apropiados, el efecto de las dosis olvidadas y retrasadas y las instrucciones de almacenamiento, viaje y seguridad. T?cnicas de resoluci?n de problemas para el seguimiento de episodios de hipo/hiperglucemia y tratamientos. Reducir los comportamientos de reducci?n de riesgos, dejar de fumar, ex?menes regulares de ojos, pies y dentales. Coding Level of Care Code Est Pt Level 1 (73456) Diagnoses Type 2 diabetes mellitus E11.9
== END 2023-06-05 10:02 | disposition home or self-care (01) ==
PROVIDERS: PCP Internal Medicine; Visit Provider Registered Nurse Diabetes Educator
DX: E11.9 Type 2 diabetes mellitus without complications (principal)

== ENCOUNTER → 2023-06-05 09:29 | Outpatient (BNVA) | payer MEDICAID, SELFPAY | PROVIDERS: PCP Internal Medicine; Visit Provider Registered Nurse Diabetes Educator | DX: E11.9 Type 2 diabetes mellitus without complications (principal); Z71.89 Other specified counseling | CPT/HCPCS: 99211 ==

== ENCOUNTER 2023-06-20 07:58 | Outpatient (REF) | payer MEDICAID, SELFPAY ==
[2023-06-20 10:14] LABS: Cholesterol 200 mg/dL (<200); HDL Cholesterol 33 mg/dL (>40); LDL Cholesterol Calculated 99 mg/dL (<100); Triglycerides 341 mg/dL (<150)
== END 2023-06-20 07:59 | disposition home or self-care (01) ==
LOC: HO.LAB 07:58
PROVIDERS: PCP Internal Medicine; Visit Provider Internal Medicine Endocrinology, Diabetes & Metabolism
DX: E78.2 Mixed hyperlipidemia (principal)
CPT/HCPCS: 36415; 80061

== ENCOUNTER 2023-06-21 09:07 | Outpatient (AMB) | payer MEDICAID, SELFPAY ==
[2023-06-21 09:15] VITALS: BP 130/80; PULSE 80; BMI 36.0
--- NOTE | 2023-06-21 09:15 | A.OFFVIS_ITS ---
Intake Vital Signs 06/21/23 09:15 Height 5 ft Weight 184 lb 4.903 oz BMI 36.0 BP 130/80 Blood Pressure Location Lt brachial Position Sitting Pulse 80 Pulse Source Pulse Oximeter Intake Visit Reasons: f/u Type 2 DM/hyperlipidemia-confirmed Intake Note: Patient presents today to follow up on D2MT/Hyperlipidemia. Last Diabetic Eye exam: Patient not sure when her last exam was. Last Podiatry Visit: Doesn't have one. Random Glucose: 171 mg/dl HgA1c: 7.0% Certified Retinal Angiographer Required: Yes Certified Retinal Angiographer Language: Masonry Contractor Administrator Name: Hellen Information Interpreted: non-clinical & clinical Accompanied by: Self / Same As Patient Allergies No Known Allergies [No Known Allergies*] Allergy (Verified 06/21/23 09:29) HPI HPI Comments History of Present Illness Details This is a 52-year-old female referred to endocrinology for mixed hyperlipidemia. Dxed 2 yrs ago. There is no history of pancreatitis. There is no history of coronary artery disease or CVA . There is a known history of hyperlipidemia in the family in mother . She is also here today for care of her type 2 diabetes She currently takes atorvastatin 80 mg q.d. , fenofibrate 140 mg and fish oils 2000 mg BID Patient does have a history of Type 2 diabetes for 2 yrs She currently takes insulin 38 units Lantus and 14 units of Humalog in AM . also takes Jardiance 25 mg QD . Metformin caused GI intolerance No recent hemoglobin A1c is been documented. Glucometer download shows she is checking her point cares once a day. Average glucose is 141 with range of 119-165. 100% range Has visit with Ophthalmology in March 2023 No hypoglycemia [facility] Medical History (Updated 02/16/23 @ 10:33 by Enrique Wells MD) Type 2 diabetes mellitus History of COVID-19 Hyperlipidemia Diabetes Hypertension Surgical History Hx of tubal ligation H/O esophagogastroduodenoscopy H/O colonoscopy S/P breast biopsy, left Family History Father No problems noted. Mother No problems noted. Social History Are you a primary home care consultant to a significant other at home: No Do you presently have visiting nurse or other home services: No Alcohol intake: never Patient Tobacco Use Status: Never used Tobacco Female Reproductive History Menstrual Age of Menarche: 9 Physical Exam Vital Signs: Last Vital Signs Pulse 80 06/21/23 09:15 BP 130/80 06/21/23 09:15 BMI result Body Mass Index 36.0 Results AMB Hemoglobin A1c AMB Hemoglobin A1c 7.0 % Last Edit by DOMINIC Rees on 06/21/23 09:43 Results Reviewed Results Reviewed: Laboratory Last Values Glucose (Clinic) 171 mg/dL (60-115) H 06/21/23 09:32 Hgb A1c (Clinic) 7.0 % (4.0-6.0) H 06/21/23 09:35 Assessment & Plan Assessment & Plan (1) Hyperlipidemia: Code(s): E78.5 - Hyperlipidemia, unspecified Qualifiers: Hyperlipidemia type: mixed hyperlipidemia Qualified Code(s): E78.2 - Mixed hyperlipidemia Plan: Management as per type 2 diabetes (2) Type 2 diabetes mellitus: Code(s): E11.9 - Type 2 diabetes mellitus without complications Plan: This is a 52-year-old female with history of type 2 diabetes being treated with Jardiance and basal-bolus insulin with optimal glycemic control and no known microvascular or macrovascular complications The plan is to communicate with patient's primary care provider regarding stopping or substituting hydrochlorothiazide which the patient is receiving in combination with losartan and separately which could be elevating the triglyceride levels. Once the hydrochlorothiazide is discontinued a lipid profile should be performed about 2 months later with goal of triglycerides <150. There is no need for endocrine follow-up for management of the diabetes at this point and in terms of the diabetes patient can follow up with the primary care provider Orders: Orders AMB Hemoglobin A1c Today E11.9 - Type 2 diabetes mellitus without complications, Z13.9 - Encounter for screening, unspecified Coding Level of Care Code Est Pt Level 3 (52404) Diagnoses Mixed hyperlipidemia E78.2 Hyperlipidemia type: mixed hyperlipidemia Type 2 diabetes mellitus E11.9
[2023-06-21 09:36] LABS: Glucose, Whole Blood 171 mg/dL (60-115)
== END 2023-06-21 10:09 | disposition home or self-care (01) ==
PROVIDERS: PCP Internal Medicine; Referring Provider Internal Medicine; Visit Provider Internal Medicine Endocrinology, Diabetes & Metabolism
DX: Z13.9 Encounter for screening, unspecified (principal); E11.9 Type 2 diabetes mellitus without complications; E78.2 Mixed hyperlipidemia
CPT/HCPCS: 99213

== ENCOUNTER → 2023-06-21 09:07 | Outpatient (BNVA) | payer MEDICAID, SELFPAY | PROVIDERS: PCP Internal Medicine; Visit Provider Internal Medicine Endocrinology, Diabetes & Metabolism | DX: E78.2 Mixed hyperlipidemia (principal); E11.9 Type 2 diabetes mellitus without complications | CPT/HCPCS: 82947; 83036; 99212 ==

== ENCOUNTER 2023-07-11 10:26 | Outpatient (AMB) | payer MEDICAID, SELFPAY ==
--- NOTE | 2023-07-11 10:27 | A.OFFVIS_ITS ---
Intake Visit Reasons: [facility] Ref/ VV Intake Note: New patient presents for varicose veins in left leg. No pain , no swelling. Patient is diabetic , non smoker. Accompanied by: Self / Same As Patient Allergies No Known Allergies [No Known Allergies*] Allergy (Verified 07/11/23 10:29) [facility] Ref/ VV: Details: Pleasant 53-year-old female patient presents for painful varicose veins. Complaints include pain over varicosities, swelling of lower extremities, cramping, fatigue, and heaviness of the lower extremities. It has been affecting there daily activities including walking. It is noted more so in left leg. Patient denies any previous venous surgery or injections. Patient denies any history of DVT/ PE. Patient denies any history of phlebitis. Trial of compression includes - [id number] They now present for vascular evaluation regarding their varicose veins. [facility] Medical History Type 2 diabetes mellitus History of COVID-19 Hyperlipidemia Diabetes Hypertension Surgical History Hx of tubal ligation H/O esophagogastroduodenoscopy H/O colonoscopy S/P breast biopsy, left Family History Father No problems noted. Mother No problems noted. Social History Are you a primary managed care coordinator to a significant other at home: No Do you presently have visiting nurse or other home services: No Alcohol intake: never Patient Tobacco Use Status: Never used Tobacco Female Reproductive History Menstrual Age of Menarche: 9 Review of Systems Const Reports as per HPI ENT Reports no additional complaints Card Denies chest pain, Denies chest pain at rest and Denies chest pain with activity Resp Denies chest congestion and Denies cough GI Reports no additional complaints Musc Details: pain over varicosities, aching of lower extremities, swelling, cramping, heaviness and tiredness, itching Denies abnormal gait Skin/Breast Reports pruritus and Denies wounds Neuro Reports no additional complaints and Denies abnormal gait Psych Denies no additional complaints Physical Exam Const General: cooperative, healthy appearing and comfortable Orientation/consciousness: oriented to person, oriented to place and oriented to time Neck Carotids: no bruits Chest Chest palpation & inspection: normal inspection of the chest and normal palpation of entire chest wall Resp Effort & Inspection: normal respiratory effort and able to speak in complete sentences Cardio Rate: regular rate Heart sounds: S1 normal heart sound present and S2 normal heart sound present Peripheral pulses: Peripheral pulses 2+ throughout GI Inspection: Yes normal to inspection Skin Other: +2 edema, large rope-like varicosities greater than 4 mm CEAP Classification C4 - skin color changes Ep - Etiology Primary As - superficial veins P - reflux General skin exam: dry skin Neuro General: oriented to person, oriented to place and oriented to time Extrem Right lower extremity: full ROM, normal capillary refill and edema Left lower extremity: full ROM, normal capillary refill and edema Psych Mental Status: mental status grossly normal Assessment & Plan Assessment & Plan (1) Varicose veins of left lower extremity with inflammation: Code(s): I83.12 - Varicose veins of left lower extremity with inflammation Category: Medical Plan: In short, the patient has evidence of venous insufficiency. I have discussed the pathophysiology with the patient. In addition I have provided informational material regarding venous disease to the patient. We have discussed conservative measures including compression, elevation, and exercise. I have also provided a handout regarding appropriate use of compression stockings and where to purchase good compression stockings as well. I have taken the liberty of ordering venous insufficiency testing with the patient. They will follow up with me after testing. The patient had an opportunity to ask questions regarding the treatment plan. All questions were answered. Imaging studies, laboratory studies and physical exam results were discussed and reviewed in detail. No major barriers to understanding were identified. The patient expressed understanding and agreement with the above treatment plan. The patient is aware they should contact our office by phone for worsening of the current condition or the appearance of new symptoms. Thank you for allowing me to participate in the vascular care of this patient. If you have any questions or concerns regarding the treatment for the above condition please do not hesitate to contact me. The office telephone contact is [phone]. This note is constructed using voice recognition software. While every effort has been made to ensure accuracy, assembly line inspector errors may have been included. Thank you for allowing me to participate in the care of your patient. Yours sincerely, Milind Weinberg MD, FACS, R.P.V.I. Orders: Orders US venous duplex LE BI 1 Week I83.12 - Varicose veins of left lower extremity with inflammation Coding Level of Care Code New Pt Level 4 (41338) Diagnoses Varicose veins of left lower extremity with inflammation I83.12
== END 2023-07-11 11:03 | disposition home or self-care (01) ==
LOC: HO.HVS 10:27
PROVIDERS: PCP Internal Medicine; Visit Provider Surgery Vascular Surgery
DX: I83.12 Varicose veins of left lower extremity with inflammation (principal)
CPT/HCPCS: 99203

== ENCOUNTER → 2023-07-11 10:26 | Outpatient (BNVA) | payer MEDICAID, SELFPAY | PROVIDERS: PCP Internal Medicine; Visit Provider Surgery Vascular Surgery | DX: I83.12 Varicose veins of left lower extremity with inflammation (principal) | CPT/HCPCS: 99202 ==

== ENCOUNTER 2023-07-26 10:20 | Outpatient (AMB) | payer MEDICAID, SELFPAY ==
[2023-07-26 10:57] VITALS: BMI 35.4
--- NOTE | 2023-07-26 10:57 | A.OFFVIS_ITS ---
VS Expanded 07/26/23 10:57 Height 5 ft Weight 181 lb 3.52 oz BMI 35.4 Intake Visit Reasons: T2DM/hyperlipidemia/LVM Allergies No Known Allergies [No Known Allergies*] Allergy (Verified 07/11/23 10:29) Nutrition Presentation Details: Pt presents for MNT f/u T2DM Pt reports walking the dog daily for 30 minutes Including fish 2 times /wk challenges: increasing on pastries/baking and similar BS Monitoring Most Recent Diabetes Results: Cholesterol 200 mg/dL (<200) H 06/20/23 HDL Cholesterol 33 mg/dL (>40) L 06/20/23 Triglycerides 341 mg/dL (<150) H 06/20/23 PFSH Medical History Type 2 diabetes mellitus History of COVID-19 Hyperlipidemia Diabetes Hypertension Surgical History Hx of tubal ligation H/O esophagogastroduodenoscopy H/O colonoscopy S/P breast biopsy, left Family History Father No problems noted. Mother No problems noted. Social History Are you a primary child care supervisor to a significant other at home: No Do you presently have visiting nurse or other home services: No Alcohol intake: never Patient Tobacco Use Status: Never used Tobacco Female Reproductive History Menstrual Age of Menarche: 9 Assessment & Plan Assessment & Plan (1) Hyperlipidemia: Code(s): E78.5 - Hyperlipidemia, unspecified Category: Medical Qualifiers: Hyperlipidemia type: mixed hyperlipidemia Qualified Code(s): E78.2 - Mixed hyperlipidemia Plan: used wt : 85 kg (04/2023), 82 kg (07/27) Est kcal needs as per MSJ: 1888 (40% carb, 30% protein/fat) Est fluid needs as per 25-30 ml/d: 2125- 2550 Est prot per day as per 1 g/kg bw: 85 Recommend fiber intake : 8-10 g per day and gradually increase to 25-28 g per day for women as tolerated Recommend sodium intake per day: less than 2000 mg Educated patient on: ( R = reviewed V = verbalizes understanding N/R = needs review N/A = not applicable * Food sources of carbohydrate, adequate serving sizes and its role in various health conditions: R * Differences between complex carbohydrates a simple carbohydrates, role of fiber in diet: R * Differences between types of fats and role in diet (mono on saturated fat fatty acids, saturated fatty acids, trans fats): R * Food sources of sodium in salt and healthy modifications for heart health in kidney health: R * Vitamins and minerals: R * Healthy plate method concept: R * Physical activity: Benefits a precaution: R * Patient Instructions: Have walter salad at lunch 3 times a week keep physically active - walk as tolerated 30 min Continue working on reducing on fried foods/pastries and choose a fruit instead Coding Level of Care Code Nutr Indiv Subseq (22053) Diagnoses Mixed hyperlipidemia E78.2 Hyperlipidemia type: mixed hyperlipidemia Time Spent (min) 30
== END 2023-07-26 11:19 | disposition home or self-care (01) ==
PROVIDERS: PCP Internal Medicine; Visit Provider Dietitian, Registered
DX: E78.2 Mixed hyperlipidemia (principal)

== ENCOUNTER → 2023-07-26 10:20 | Outpatient (BNVA) | payer MEDICAID, SELFPAY | PROVIDERS: PCP Internal Medicine; Visit Provider Dietitian, Registered | DX: E78.2 Mixed hyperlipidemia (principal) | CPT/HCPCS: 97803 ==

== ENCOUNTER 2023-08-07 11:15 | Outpatient (REF) | payer MEDICAID, SELFPAY ==
--- NOTE | ~2023-08-07 | MM_ITS ---
EXAMINATION: MM SCREENING DIGITAL BREAST TOMOSYNTHESIS, BILATERAL CLINICAL INFORMATION: Screening. Asymptomatic. COMPARISON: Mammography: This study is compared with prior exams dating back to 2019. TECHNIQUE: Digital breast tomosynthesis is performed in both the craniocaudal and mediolateral oblique views along with computer-aided detection (CAD). Synthesized 2D images are generated from the tomosynthesis. FINDINGS: The breasts are heterogeneously dense, which may obscure small masses (ACR BI-RADS breast composition Category c). There is an asymmetry at the lower inner quadrant of the left breast. It lies just medial to a tissue marker from prior benign percutaneous biopsy. Additional mammographic and targeted sonographic imaging of the asymmetry are advised. In the right breast, there are no significant masses, abnormal calcifications, or other abnormalities. MM/MM tomosynthesis screening BI IMPRESSION: Asymmetry of the left breast warrants additional mammographic and targeted sonographic imaging. No mammographic signs of malignancy right breast. ASSESSMENT: BI-RADS BI-RADS 0 - Incomplete: Needs additional Imaging. RECOMMENDATION: 1. Additional views of the left breast. 2. Targeted ultrasound if warranted after review of the additional views. 3. Radiology department staff will contact the patient for additional imaging. Additional Imaging required This examination should not preclude the clinical evaluation of a suspicious palpable abnormality. This patient's information was entered into a reminder system with a target due date for their next mammogram.
== END 2023-08-07 11:16 | disposition home or self-care (01) ==
LOC: HO.MAMMO 11:15
PROVIDERS: PCP Internal Medicine; Visit Provider Internal Medicine
DX: Z12.31 Encounter for screening mammogram for malignant neoplasm of breast (principal)
CPT/HCPCS: 77063; 77067

== ENCOUNTER → 2023-08-07 11:45 | Outpatient (BNV) | payer MEDICAID, SELFPAY | PROVIDERS: PCP Internal Medicine; Visit Provider Radiology Diagnostic Radiology | DX: Z12.31 Encounter for screening mammogram for malignant neoplasm of breast (principal) | CPT/HCPCS: 77063; 77067 ==

== ENCOUNTER 2023-08-25 12:51 | Outpatient (REF) | payer MEDICAID, SELFPAY ==
--- NOTE | ~2023-08-25 | MM_ITS ---
EXAMINATION: MM DIAGNOSTIC DIGITAL BREAST TOMOSYNTHESIS, LEFT CLINICAL INFORMATION: Follow-up for one view asymmetry seen medial slightly inferior left breast CC view only. No definite MLO correlate. History of benign left breast stereotactic biopsy. COMPARISON: Mammography: Screening mammography 08/07/2023, and dating back to 05/04/2017. TECHNIQUE: Digital breast tomosynthesis is performed. 2D images are generated from the tomosynthesis. The following views are obtained: Full-field 3-D left mediolateral view, as well as a 3-D spot compression left cc view. Computer-aided diagnosis was used for this study. FINDINGS: The breasts are heterogeneously dense, which may obscure small masses (ACR BI-RADS breast composition Category c). Additional views demonstrate the 1 view asymmetry does not definitively persist, and has no MLO or MLO correlate. Findings are consistent with superimposition artifact of normal overlapping tissues, with a possible component of residual postbiopsy fat necrosis from the hematoma experienced during stereotactic biopsy 05/27/2019. There is a post benign biopsy clip in the 8:00 axis of the left breast, posterior one third, directly abutting. Parenchymal pattern on the CC and MLO views is stable from prior exams back to 12/25/2019 with no definitive changes. There is no skin or axillary abnormality. MM/MM tomosynthesis added views L IMPRESSION: -No persistent findings suspicious for malignancy. Area in question is consistent with superimposition artifact of normal overlapping tissues, and in retrospect unchanged from 12/25/2019. -Recommend the patient resume routine annual screening to include both breasts. ASSESSMENT: BI-RADS BI-RADS 2 - Benign Findings RECOMMENDATION: 1 year F/U Results were provided to the patient at time of visit by the technologist. This patient's information was entered into a reminder system with a target due date for their next mammogram.
== END 2023-08-25 12:52 | disposition home or self-care (01) ==
LOC: HO.MAMMO 12:51
PROVIDERS: PCP Internal Medicine; Visit Provider Internal Medicine
DX: N64.89 Other specified disorders of breast (principal)
CPT/HCPCS: 77061; 77065

== ENCOUNTER → 2023-08-25 13:30 | Outpatient (BNV) | payer MEDICAID, SELFPAY | PROVIDERS: PCP Internal Medicine; Visit Provider Radiology Diagnostic Radiology | DX: R92.333 Mammographic heterogeneous density, bilateral breasts (principal) | CPT/HCPCS: 77061; 77065 ==

== ENCOUNTER 2023-09-11 11:16 | Outpatient (AMB) | payer MEDICAID, SELFPAY ==
--- NOTE | 2023-09-11 11:53 | A.OFFVIS_ITS ---
Intake Intake Visit Reasons: DM-confirmed Displayer Merchandise Required: Yes Displayer Merchandise Language: Chicken Catcher Name: Tylor [id number] Accompanied by: Self / Same As Patient Allergies No Known Allergies [No Known Allergies*] Allergy (Verified 07/11/23 10:29) HPI Comprehensive Diabetes Asmnt Most Recent Diabetes Results: Hemoglobin A1c > 14.0 % 08/30/19 Microalb/Creat Ratio 12.5 ug/mg cr 03/01/18 Cholesterol 200 mg/dL (<200) H 06/20/23 HDL Cholesterol 33 mg/dL (>40) L 06/20/23 Triglycerides 341 mg/dL (<150) H 06/20/23 Creatinine 0.83 MG/DL (0.5-1.4) 08/14/18 Blood Urea Nitrogen 11 MG/DL (9-16) 08/14/18 Sodium 142 MMOL/L (135-145) 08/14/18 Potassium 4.2 MMOL/L (3.3-5.1) 08/14/18 Chloride 105 MMOL/L (96-108) 08/14/18 Calcium 9.8 MG/DL (8.4-10.2) 08/14/18 AST 27 U/L (5-31) 03/01/18 ALT 30 U/L (0-31) 03/01/18 Total Protein 7.4 G/DL (6.5-8.0) 03/01/18 Albumin 4.2 G/DL (3.5-5.0) 03/01/18 [facility] Medical History Type 2 diabetes mellitus History of COVID-19 Hyperlipidemia Diabetes Hypertension Surgical History Hx of tubal ligation H/O esophagogastroduodenoscopy H/O colonoscopy S/P breast biopsy, left Family History Father No problems noted. Mother No problems noted. Social History Are you a primary home care attendant to a significant other at home: No Do you presently have visiting nurse or other home services: No Alcohol intake: never Patient Tobacco Use Status: Never used Tobacco Female Reproductive History Menstrual Age of Menarche: 9 Assessment & Plan Assessment & Plan (1) Type 2 diabetes mellitus: Code(s): E11.9 - Type 2 diabetes mellitus without complications Plan: Patient at visit for follow-up blood glucose check, and diabetes education Patient is no longer using freestyle Murray 2, at this time patient declined to reinitiate CGM. Patient is testing glucose fasting only, fasting numbers tend to range slightly above target Patient reports blood sugars below: Date Breakfast/Fasting Pre-Lunch Pre-Supper Bedtime Notes 09/10 151 7/7 152 7/6 159 7/5 157 7/4 152 7/3 145 7/1 157 Medications (If applicable) * Name of medication? * Dosing/administration instructions? * Mechanism of action? * Potential side effects? * Potential adverse reaction and appropriate treatment? * Review onset, peak, duration Assess for concerns re: insurance coverage, cost, barriers to compliance Insulin/Injectables (If applicable) * Storage/care of insulin?? * Injection sites? * Site rotation? * Onset, peak, duration * Drawing up insulin? * Injecting insulin/other injectables? * Sharps disposalContinuous blood glucose monitoring (if applicable) Hypoglycemia and Hyperglycemia * Signs and symptoms? * Causes?? * Treatment? * Preventing hypoglycemia? * When to seek medical attention Plan/Goal: Patient will start Trulicity 1.5 mg, and contact Diabetes Education nurse or provider if experiencing increase in hypoglycemic events Patient given Cook Islander handout of how to treat hypoglycemia with rule of 15s Portions of this note were created using voice recognition software, please excuse any words or phrases that may have been misinterpreted. Patient Instructions: Inicie Trulicity 1,5 mg y comun?quese con la enfermera o el proveedor de educaci?n sobre diabetes si experimenta un aumento en los eventos de hipoglucemia. Seguimiento con educador en diabetes en 3 meses. Coding Level of Care Code Est Pt Level 1 (66375) Diagnoses Type 2 diabetes mellitus E11.9
== END 2023-09-11 11:54 | disposition home or self-care (01) ==
PROVIDERS: PCP Internal Medicine; Visit Provider Registered Nurse Diabetes Educator
DX: E11.9 Type 2 diabetes mellitus without complications (principal)

== ENCOUNTER → 2023-09-11 11:16 | Outpatient (BNVA) | payer MEDICAID, SELFPAY | PROVIDERS: PCP Internal Medicine; Visit Provider Registered Nurse Diabetes Educator | DX: E11.9 Type 2 diabetes mellitus without complications (principal) | CPT/HCPCS: 99211 ==

== ENCOUNTER 2023-10-18 10:21 | Outpatient (AMB) | payer MEDICAID, SELFPAY ==
--- NOTE | 2023-10-18 10:23 | MHC.OFFVIS ---
Vital Signs 10/18/23 10:24 Height 5 ft Weight 180 lb 12.465 oz BMI 35.3 BP 140/88 H Blood Pressure Location Lt brachial Position Sitting Pulse 71 Pulse Source Pulse Oximeter Intake Visit Reasons: high triglycerides-confirmed Intake Note: Patient present today for high triglycerides follow up visit. Manager Supply Chain Planning Required: Yes Manager Supply Chain Planning Language: Solid Tire Tuber Machine Operator Services: Manager Supply Chain Planning Present Manager Supply Chain Planning Name: Neris Information Interpreted: non-clinical & clinical Accompanied by: Self / Same As Patient Allergies No Known Allergies [No Known Allergies*] Allergy (Verified 10/18/23 10:28) Medication List - Last Reconciled 10/18/23 by Enrique Wells MD alcohol swabs (Alcohol Prep Pads) pad topical QID aspirin (Children's Aspirin) 81 mg PO DAILY atorvastatin 80 mg PO DAILY blood sugar diagnostic (FreeStyle Lite Strips) As directed dulaglutide (Trulicity) 1.5 mg (0.5 mL) subcut QWEEK fenofibrate micronized 134 mg PO DAILY flash glucose scanning reader (StreetlifeStyle Murray 2 [place]) As directed flash glucose sensor (FreeStyle Murray 2 Sensor kit) As directed change every 14 days fluticasone propionate 50 mcg/actuation 1 - 2 sprays intranasal DAILY PRN hydrochlorothiazide 25 mg PO QAM insulin glargine (Lantus U-100 Insulin) 38 units subcut QPM insulin lispro (Humalog U-100 Insulin) 14 units subcut QAM lancets (FreeStyle Lancets) As directed latanoprost 0.005% 1 drp ophthalmic (eye) BEDTIME losartan 100 mg PO DAILY multivitamin 1 tab PO QAM omega-3 acid ethyl esters 2 caps PO BID pen needle, diabetic (BD Tawanna 2nd Gen Pen Needle) As directed polyethylene glycol 3350 (Miralax) 17 grams PO DAILY PRN valacyclovir 1,000 mg PO DAILY HPI Comments Details: This is a 52-year-old female referred to endocrinology for mixed hyperlipidemia. Dxed 2 yrs ago. There is no history of pancreatitis. There is no history of coronary artery disease or CVA . There is a known history of hyperlipidemia in the family in mother . She is also here today for care of her type 2 diabetes She currently takes atorvastatin 80 mg q.d. , fenofibrate 140 mg and fish oils 2000 mg BID Patient does have a history of Type 2 diabetes for 2 yrs She currently takes insulin 38 units Lantus and 14 units of Humalog in AM . also takes Jardiance 25 mg QD . Metformin caused GI intolerance No recent hemoglobin A1c is been documented. Has not been taking the fish oils. States that she has stopped the hydrochlorothiazide in conjunction with the primary care provider several weeks ago. [facility] Medical History Type 2 diabetes mellitus History of COVID-19 Hyperlipidemia Diabetes Hypertension Surgical History Hx of tubal ligation H/O esophagogastroduodenoscopy H/O colonoscopy S/P breast biopsy, left Family History Father No problems noted. Mother No problems noted. Social History Are you a primary home health care respiratory therapist to a significant other at home: No Do you presently have visiting nurse or other home services: No Alcohol intake: never Patient Tobacco Use Status: Never used Tobacco Female Reproductive History Menstrual Age of Menarche: 9 Physical Exam Vital Signs: Last Vital Signs Pulse 71 10/18/23 10:24 BP 140/88 H 10/18/23 10:24 BMI result Body Mass Index 35.3 Assessment & Plan Assessment & Plan (1) Hyperlipidemia: Code(s): E78.5 - Hyperlipidemia, unspecified Category: Medical Qualifiers: Hyperlipidemia type: mixed hyperlipidemia Qualified Code(s): E78.2 - Mixed hyperlipidemia Plan: Management as per type 2 diabetes (2) Type 2 diabetes mellitus: Code(s): E11.9 - Type 2 diabetes mellitus without complications Category: Medical Plan: This is a 52-year-old female with history of type 2 diabetes being treated with Jardiance and basal-bolus insulin with optimal glycemic control and no known microvascular or macrovascular complications The plan is to reinitiate the fish oils 2000 mg b.i.d.. Continue the atorvastatin and fenofibrate and recheck lipid profile in about 6 weeks' time Orders: Orders Lipid Panel 6 Weeks E78.2 - Mixed hyperlipidemia AMB Hemoglobin A1c Today E78.2 - Mixed hyperlipidemia, Z13.9 - Encounter for screening, unspecified Medications: New omega-3 acid ethyl esters 2 caps PO BID 120 caps 5RF Coding Level of Care Code Est Pt Level 3 (68517) Diagnoses Mixed hyperlipidemia E78.2 Hyperlipidemia type: mixed hyperlipidemia Type 2 diabetes mellitus E11.9
[2023-10-18 10:24] VITALS: BP 140/88; PULSE 71; BMI 35.3
== END 2023-10-18 10:38 | disposition home or self-care (01) ==
PROVIDERS: PCP Internal Medicine; Visit Provider Internal Medicine Endocrinology, Diabetes & Metabolism
DX: E78.2 Mixed hyperlipidemia (principal); E11.9 Type 2 diabetes mellitus without complications
CPT/HCPCS: 99213

== ENCOUNTER → 2023-10-18 10:21 | Outpatient (BNVA) | payer MEDICAID, SELFPAY | PROVIDERS: PCP Internal Medicine; Visit Provider Internal Medicine Endocrinology, Diabetes & Metabolism | DX: E78.2 Mixed hyperlipidemia (principal); E11.9 Type 2 diabetes mellitus without complications; Z79.4 Long term (current) use of insulin | CPT/HCPCS: 99212 ==

== ENCOUNTER 2023-11-15 11:26 | Outpatient (AMB) | payer MEDICAID, SELFPAY ==
[2023-11-15 11:31] VITALS: BMI 28.9
--- NOTE | 2023-11-15 11:31 | A.OFFVIS_ITS ---
VS Expanded 11/15/23 11:31 Height 5 ft 6 in Weight 178 lb 12.718 oz BMI 28.9 Intake Visit Reasons: T2DM Allergies No Known Allergies [No Known Allergies*] Allergy (Verified 10/18/23 10:28) Nutrition Presentation Details: Pt presents for MNT f/u for hyperlipidemia Pt reports working on reducing amounts of fats in the diet (fried foods, desserts, pastries) Pt reports participating in more physical activity , walking daily for 20 minutes food frequency fruits: 2/d ve-3 at dinner dairy: 3 servings protein: 70 g prot (eggs, beef/pork 3 x/wk , cheese, , reports air frying, steaming, removing fats) etoh: occ smoking: denies BS Monitoring Most Recent Diabetes Results: No Data to Display [facility] Medical History Type 2 diabetes mellitus History of COVID-19 Hyperlipidemia Diabetes Hypertension Surgical History Hx of tubal ligation H/O esophagogastroduodenoscopy H/O colonoscopy S/P breast biopsy, left Family History Father No problems noted. Mother No problems noted. Social History Are you a primary personal care aid to a significant other at home: No Do you presently have visiting nurse or other home services: No Alcohol intake: never Patient Tobacco Use Status: Never used Tobacco Female Reproductive History Menstrual Age of Menarche: 9 Assessment & Plan Assessment & Plan (1) Hyperlipidemia: Code(s): E78.5 - Hyperlipidemia, unspecified Category: Medical Qualifiers: Hyperlipidemia type: mixed hyperlipidemia Qualified Code(s): E78.2 - Mixed hyperlipidemia Plan: used wt : 85 kg (04/2023), 82 kg (07/27), 81 kg (11/27) Est kcal needs as per MSJ: 1888 (40% carb, 30% protein/fat) Est fluid needs as per 25-30 ml/d: 2000- 2400 Est prot per day as per 1 g/kg bw: 81 Recommend fiber intake : 8-10 g per day and gradually increase to 25-28 g per day for women as tolerated Recommend sodium intake per day: less than 2000 mg Educated patient on: ( R = reviewed V = verbalizes understanding N/R = needs review N/A = not applicable * Food sources of carbohydrate, adequate serving sizes and its role in various health conditions: R * Differences between complex carbohydrates a simple carbohydrates, role of fiber in diet: R * Differences between types of fats and role in diet (mono on saturated fat fatty acids, saturated fatty acids, trans fats): R , V * Food sources of sodium in salt and healthy modifications for heart health in kidney health: R * Vitamins and minerals: R * Healthy plate method concept: R * Physical activity: Benefits a precaution: R * Patient Instructions: Continue working on reducing on saturated fats (fried foods/highly processed foods, and portions sizes and frequency if high fat sauces as discussed Include fiber rich foods , salads, non starchy vegetables, legumes, whole grains , seeds keep hydrated by having water with meals Coding Level of Care Code Nutr Indiv Subseq (60305) Diagnoses Mixed hyperlipidemia E78.2 Hyperlipidemia type: mixed hyperlipidemia Time Spent (min) 30
== END 2023-11-15 11:43 | disposition home or self-care (01) ==
PROVIDERS: PCP Internal Medicine; Visit Provider Dietitian, Registered
DX: E78.2 Mixed hyperlipidemia (principal)

== ENCOUNTER → 2023-11-15 11:26 | Outpatient (BNVA) | payer MEDICAID, SELFPAY | PROVIDERS: PCP Internal Medicine; Visit Provider Dietitian, Registered | DX: E78.2 Mixed hyperlipidemia (principal) | CPT/HCPCS: 97803 ==

== ENCOUNTER 2023-11-27 11:07 | Outpatient (AMB) | payer MEDICAID, SELFPAY ==
[2023-11-27 11:12] VITALS: BP 144/80; BMI 28.8
--- NOTE | 2023-11-27 11:12 | A.OFFVIS_ITS ---
Vital Signs 11/27/23 11:12 Height 5 ft 6 in Weight 178 lb 9.191 oz BMI 28.8 BP 144/80 H Intake Visit Reasons: RESEARCH ASSISTANT annual exam/DO NOT RS Development Eng Required: Yes Development Eng Language: Cutter And Paster Press Clippings Services: Development Eng Present (in person) Development Eng Name: Rahel ALFARO Information Interpreted: non-clinical & clinical Shelf Drier Operator: Shelf Drier Operator Present (Rahel ALFARO) Accompanied by: Self / Same As Patient Allergies No Known Allergies [No Known Allergies*] Allergy (Verified 11/27/23 11:16) Post menopausal: Yes HPI Comments Details: Presenting for annual exam. No complaints. Last Pap/HPV was negative in 05/25 at [facility] Last Mammogram was BI-RADS 2 in 08/27 Last [facility] Medical History Type 2 diabetes mellitus History of COVID-19 Hyperlipidemia Diabetes Hypertension Surgical History Hx of tubal ligation H/O esophagogastroduodenoscopy H/O colonoscopy S/P breast biopsy, left Family History Father No problems noted. Mother No problems noted. Social History Are you a primary skin care specialist to a significant other at home: No Do you presently have visiting nurse or other home services: No Alcohol intake: never Patient Tobacco Use Status: Never used Tobacco Female Reproductive History Menstrual Age of Menarche: 9 control method: permanent sterilization Menopause type: natural Date of last pap smear: 06/01/21 Date of Mammogram: 08/25/23 Review of Systems Const All systems reviewed & are unremarkable except as noted in HPI and below Card Reports as per HPI Resp Reports as per HPI GI Reports as per HPI and Reports no additional complaints Reports as per HPI Physical Exam Vital Signs: Last Vital Signs BP 144/80 H 11/27/23 11:12 BMI result Body Mass Index 28.8 Const General: cooperative, healthy appearing and comfortable Chest Chest palpation & inspection: normal inspection of the chest and normal palpation of entire chest wall Breast/axilla inspection: normal inspection of the breasts and normal inspection of the axillae Breast/axilla palpation: normal palpation of the breasts, normal palpation of the axillae and no axillary lymphadenopathy Resp Effort & Inspection: normal respiratory effort Auscultation: clear to auscultation bilaterally Percussion: percussion normal Cardio Palpation: normal PMI Rate: regular rate Rhythm: regular rhythm Heart sounds: no murmurs and no rubs Peripheral pulses: Peripheral pulses 2+ throughout GI Inspection: Yes normal to inspection Palpation (GI): Soft to palpation, nontender, no guarding, not rigid and No hepatosplenomegaly present Percussion: Yes normal to percussion Auscultation: normal bowel sounds Rectal Exam - Female: deferred General: Yes bladder normal to palpation External Female Exam: No lesion Speculum Exam - Vagina: normal appearance of the vagina, normal palpation, normal vaginal discharge and not erythematous Speculum Exam - Cervix: normal appearance of the cervix and normal palpation Bimanual exam- vagina & uterus: normal bimanual exam, normal palpation, uterine size normal, bladder normal to palpation, consistency normal and normal palpation Bimanual Exam- Adnexa, other: normal adnexae, no masses and no tenderness Assessment & Plan Assessment & Plan (1) Well woman exam: Code(s): Z01.419 - Encounter for gynecological examination (general) (routine) without abnormal findings Category: Medical Plan: Co testing not indicated this year. Counseled the patient about the recommended dietary allowance of 1200 mg of Calcium & 600 IU of vitamin D. Instructions given the patient to schedule next screening Mammogram in 08/28. The patient was instructed to perform monthly self-breast exams and schedule annual exam in a year. All questions answered and the patient verbalized understanding. Coding Level of Care Code Est Pt Prev Care 40-64y(95317) Diagnoses Well woman exam Z01.419
== END 2023-11-27 11:36 | disposition home or self-care (01) ==
PROVIDERS: PCP Internal Medicine; Visit Provider Obstetrics & Gynecology
DX: Z01.419 Encounter for gynecological examination (general) (routine) without abnormal findings (principal)
CPT/HCPCS: 99396

== ENCOUNTER → 2023-11-27 11:07 | Outpatient (BNVA) | payer MEDICAID, SELFPAY | PROVIDERS: PCP Internal Medicine; Visit Provider Obstetrics & Gynecology | DX: Z01.419 Encounter for gynecological examination (general) (routine) without abnormal findings (principal) | CPT/HCPCS: 99396 ==

== ENCOUNTER 2023-12-27 09:48 | Outpatient (REF) | payer OTHER, SELFPAY ==
[2023-12-27 11:34] LABS: Estimated Average Glucose 114 mg/dL; Hemoglobin A1C 125.1237 umol/L; Hemoglobin A1c % 5.6 % (<6.0); Total Hemoglobin (HGBA1C) 3310.3217 umol/L
[2023-12-27 12:21] LABS: Cholesterol 201 mg/dL (<200); HDL Cholesterol 31 mg/dL (>40); LDL Cholesterol Calculated 104 mg/dL (<100); Triglycerides 332 mg/dL (<150)
== END 2023-12-27 09:49 | disposition home or self-care (01) ==
LOC: HO.LAB 09:48
PROVIDERS: PCP Internal Medicine; Visit Provider Internal Medicine Endocrinology, Diabetes & Metabolism
DX: E78.2 Mixed hyperlipidemia (principal); E11.9 Type 2 diabetes mellitus without complications
CPT/HCPCS: 36415; 80061; 83036; 99212

== ENCOUNTER 2023-12-27 09:48 | Outpatient (AMB) | payer OTHER, MEDICAID, SELFPAY ==
[2023-12-27 09:48] VITALS: BP 130/90; PULSE 75; BMI 28.7
--- NOTE | 2023-12-27 09:48 | A.OFFVIS_ITS ---
Vital Signs 12/27/23 09:48 Height 5 ft 6 in Weight 178 lb BMI 28.7 BP 130/90 H Blood Pressure Location Lt brachial Position Sitting Pulse 75 Pulse Source Pulse Oximeter Intake Visit Reasons: high triglycerides-lvm Intake Note: Patient present today for high triglycerides follow up visit. Hot Stamp Operator Required: Yes Hot Stamp Operator Language: Insurance Associate Services: Hot Stamp Operator Present Information Interpreted: non-clinical & clinical Accompanied by: Self / Same As Patient Allergies No Known Allergies [No Known Allergies*] Allergy (Verified 12/27/23 09:54) Medication List - Last Reconciled 12/27/23 by Enrique Wells MD alcohol swabs (Alcohol Prep Pads) pad topical QID aspirin (Children's Aspirin) 81 mg PO DAILY atorvastatin 80 mg PO DAILY blood sugar diagnostic (FreeStyle Lite Strips) As directed dulaglutide (Trulicity) 1.5 mg (0.5 mL) subcut QWEEK fenofibrate micronized 134 mg PO DAILY flash glucose scanning reader (Mister BellStyle Murray 2 [place]) As directed flash glucose sensor (FreeStyle Murray 2 Sensor kit) As directed change every 14 days fluticasone propionate 50 mcg/actuation 1 - 2 sprays intranasal DAILY PRN insulin glargine (Lantus U-100 Insulin) 38 units subcut QPM insulin lispro (Humalog U-100 Insulin) 14 units subcut QAM lancets (FreeStyle Lancets) As directed latanoprost 0.005% 1 drp ophthalmic (eye) BEDTIME losartan 100 mg PO DAILY multivitamin 1 tab PO QAM omega-3 acid ethyl esters 2 caps PO BID pen needle, diabetic (BD Tawanna 2nd Gen Pen Needle) As directed polyethylene glycol 3350 (Miralax) 17 grams PO DAILY PRN valacyclovir 1,000 mg PO DAILY HPI Comments Details: This is a 53-year-old female referred to endocrinology for mixed hyperlipidemia. Dxed 2 yrs ago. There is no history of pancreatitis. There is no history of coronary artery disease or CVA . There is a known history of hyperlipidemia in the family in mother . She is also here today for care of he r type 2 diabetes She currently takes atorvastatin 80 mg q.d. , fenofibrate 140 mg and fish oils 2000 mg BID Patient does have a history of Type 2 diabetes for 2 yrs She currently takes insulin 38 units Lantus and 14 units of Humalog in AM . also takes Jardiance 25 mg QD . Metformin caused GI intolerance No recent hemoglobin A1c is been documented. Has been taking the fish oils. [facility] Medical History Type 2 diabetes mellitus History of COVID-19 Hyperlipidemia Diabetes Hypertension Surgical History Hx of tubal ligation H/O esophagogastroduodenoscopy H/O colonoscopy S/P breast biopsy, left Family History Father No problems noted. Mother No problems noted. Social History Are you a primary insurance healthcare representative to a significant other at home: No Do you presently have visiting nurse or other home services: No Alcohol intake: never Patient Tobacco Use Status: Never used Tobacco Female Reproductive History Menstrual Age of Menarche: 9 Physical Exam Vital Signs: Last Vital Signs Pulse 75 12/27/23 09:48 BP 130/90 H 12/27/23 09:48 BMI result Body Mass Index 28.7 Assessment & Plan Assessment & Plan (1) Hyperlipidemia: Code(s): E78.5 - Hyperlipidemia, unspecified Category: Medical Qualifiers: Hyperlipidemia type: mixed hyperlipidemia Qualified Code(s): E78.2 - Mixed hyperlipidemia Plan: Management as per type 2 diabetes (2) Type 2 diabetes mellitus: Code(s): E11.9 - Type 2 diabetes mellitus without complications Category: Medical Plan: This is a 52-year-old female with history of type 2 diabetes being treated with Jardiance and basal-bolus insulin with optimal glycemic control and no known microvascular or macrovascular complications The plan is to recheck lipid profile with HbA1c and adjust medications accordingly Medications: New fenofibrate micronized 134 mg PO DAILY 30 caps 5RF Refilled atorvastatin 80 mg PO DAILY 30 tabs 5RF E78.2 - Mixed hyperlipidemia omega-3 acid ethyl esters 2 caps PO BID 120 caps 5RF Coding Level of Care Code Est Pt Level 3 (23653) Diagnoses Mixed hyperlipidemia E78.2 Hyperlipidemia type: mixed hyperlipidemia Type 2 diabetes mellitus E11.9
== END 2023-12-27 10:08 | disposition home or self-care (01) ==
PROVIDERS: PCP Internal Medicine; Visit Provider Internal Medicine Endocrinology, Diabetes & Metabolism
DX: E78.2 Mixed hyperlipidemia (principal); E11.9 Type 2 diabetes mellitus without complications
CPT/HCPCS: 99213

== ENCOUNTER 2024-01-15 10:15 | Outpatient (AMB) | payer OTHER, SELFPAY ==
--- NOTE | 2024-01-15 11:01 | A.OFFVIS_ITS ---
Intake Intake Visit Reasons: DM-confirmed Maintenance Coordinator Required: Yes Maintenance Coordinator Language: Sign Builder Name: [id number] Information Interpreted: non-clinical & clinical Accompanied by: Self / Same As Patient Allergies No Known Allergies [No Known Allergies*] Allergy (Verified 12/27/23 09:54) HPI Comprehensive Diabetes Asmnt Most Recent Diabetes Results: Cholesterol 236 mg/dL (<200) H 01/15/24 HDL Cholesterol 38 mg/dL (>40) L 01/15/24 Triglycerides 234 mg/dL (<150) H 01/15/24 PFSH Medical History Type 2 diabetes mellitus History of COVID-19 Hyperlipidemia Diabetes Hypertension Surgical History Hx of tubal ligation H/O esophagogastroduodenoscopy H/O colonoscopy S/P breast biopsy, left Family History Father No problems noted. Mother No problems noted. Social History Are you a primary critical care nurse practitioner to a significant other at home: No Do you presently have visiting nurse or other home services: No Alcohol intake: never Patient Tobacco Use Status: Never used Tobacco Female Reproductive History Menstrual Age of Menarche: 9 Assessment & Plan Assessment & Plan (1) Type 2 diabetes mellitus: Code(s): E11.9 - Type 2 diabetes mellitus without complications Plan: Learning objectives: The patient was provided with verbal and written education on the following topics as outlined below. The patient met all learning objectives and was able to verbalize understanding and provide teach back of education topics discussed . The patient was provided with the opportunity to ask questions and all questions were answered. Patient Assessment Patient questions/concerns patient is overdue for A1c, patient does have order for A1c in her chart. Last A1c on 06/21/2023 7% Patient reports taking Lantus 35 units daily Humalog 12 units for breakfast 14 units for lunch and 20 units for supper Patient denies hypoglycemia or symptoms of hypoglycemia Patient reports she is not interested in reinitiating CGM at this time Exercise Medical clearance Effect of exercise on blood sugar Start slowly and gradually increase pace/duration over time Goal amount of exercise Checking blood glucose/have a source of carbs with you Medications (If applicable) * Name of medication * Dosing/administration instructions * Mechanism of action * Potential side effects * Potential adverse reaction and appropriate treatment * Review onset, peak, duration Assess for concerns re: insurance coverage, cost, barriers to compliance Insulin/Injectables (If applicable) * Storage/care of insulin * Injection sites * Site rotation * Onset, peak, duration * Drawing up insulin * Injecting insulin/other injectables * Sharps disposal Continuous blood glucose monitoring (if applicable) Hypoglycemia and Hyperglycemia * Signs and symptoms * Causes * Treatment * Preventing hypoglycemia * When to seek medical attention Medical alert bracelet Lifestyle * Work * Travel * Stress management * Problem solving Know your goals * A1C * Blood sugar targets * Blood pressure * Cholesterol/LDL Urine microalbumin Smart Goal Assessment: Patient will bring meter to every visit at the Diabetes clinic Pt met goal 75% Educational Materials: The patient was provided with the following written educational materials: ADCES 7 Healthy Behaviors Reducing Risks handout Patient Response to instructions: Comprehension of Instructions: fair Readiness to make changes: Contemplation How confident they feel about making changes: Fair Portions of this note were created using voice recognition software, please excuse any words or phrases that may have been misinterpreted. Patient Instructions: Incluir actividad diaria regular. ADA recomienda 30 minutos de ejercicio 5 d?as a la semana. P?rdida de peso, hable con el PCP o el cardi?logo antes de comenzar un nuevo plan. Mida el nivel de az?car en la bipin seg?n las indicaciones; Ayuno y comida m?s georgina de 2hpp. Observe las tendencias en los resultados. Utilice los resultados y eval?e c?mo los alimentos, la actividad f?shraddha y los medicamentos afectan los resultados de az?car en la bipin. Lleve el gluc?metro o CGM a la pr?xima visita. Conocer los medicamentos para la diabetes, richards acci?n, los efectos secundarios, la eficacia, la toxicidad, la dosis prescrita, el momento y la frecuencia de administraci?n apropiados, el efecto de las dosis olvidadas y retrasadas y las instrucciones de almacenamiento, viaje y seguridad. T?cnicas de resoluci?n de problemas para el seguimiento de episodios de hipo/hiperglucemia y tratamientos. Reducir los comportamientos de reducci?n de riesgos, dejar de fumar, ex?menes regulares de ojos, pies y dentales. Coding Level of Care Code Est Pt Level 1 (62965) Diagnoses Type 2 diabetes mellitus E11.9
== END 2024-01-15 11:03 | disposition home or self-care (01) ==
PROVIDERS: PCP Internal Medicine; Visit Provider Registered Nurse Diabetes Educator
DX: E11.9 Type 2 diabetes mellitus without complications (principal)

== ENCOUNTER → 2024-01-15 10:15 | Outpatient (BNVA) | payer OTHER, SELFPAY | PROVIDERS: PCP Internal Medicine; Visit Provider Registered Nurse Diabetes Educator | DX: E11.9 Type 2 diabetes mellitus without complications (principal) | CPT/HCPCS: 99211 ==

== ENCOUNTER 2024-01-15 11:15 | Outpatient (REF) | payer OTHER, SELFPAY ==
[2024-01-15 12:14] LABS: Estimated Average Glucose 123 mg/dL; Hemoglobin A1C 148.8476 umol/L; Hemoglobin A1c % 5.9 % (<6.0); Total Hemoglobin (HGBA1C) 3617.0551 umol/L
[2024-01-15 12:41] LABS: Cholesterol 236 mg/dL (<200); HDL Cholesterol 38 mg/dL (>40); LDL Cholesterol Calculated 152 mg/dL (<100); Triglycerides 234 mg/dL (<150)
== END 2024-01-15 11:16 | disposition home or self-care (01) ==
LOC: HO.LAB 11:15
PROVIDERS: PCP Internal Medicine; Visit Provider Internal Medicine Endocrinology, Diabetes & Metabolism
DX: E78.2 Mixed hyperlipidemia (principal); E11.9 Type 2 diabetes mellitus without complications
CPT/HCPCS: 36415; 80061; 83036; 99211

== ENCOUNTER 2024-01-17 11:57 | Outpatient (REF) | payer OTHER, SELFPAY ==
[2024-01-17 14:59] LABS: Creatinine Urine 67.24 mg/dL; Microalbumin Urine < 5.0 mg/L
== END 2024-01-17 11:58 | disposition home or self-care (01) ==
LOC: HO.CHCLDS 11:57
PROVIDERS: Visit Provider Internal Medicine
DX: E11.65 Type 2 diabetes mellitus with hyperglycemia (principal)
CPT/HCPCS: 82570

== ENCOUNTER 2024-01-23 09:03 | Outpatient (REF) | payer OTHER, SELFPAY ==
--- NOTE | 2024-01-23 09:08 | EMG_ITS ---
Left median and ulnar motor and sensory studies were performed. Left radial and median and lateral antecubital brachial sensory studies were performed. Patient refused to have EMG or needle examination. IMPRESSION: Mild to moderate left median neuropathy across carpal tunnel. Without needle examination, radiculopathy could not be ruled out. MD LYUDMILA Lowe/OLEG / [phone]
== END 2024-01-23 09:04 | disposition home or self-care (01) ==
LOC: HO.NEURO 09:03
PROVIDERS: PCP Internal Medicine; Visit Provider Family Medicine
DX: G56.02 Carpal tunnel syndrome, left upper limb (principal)
CPT/HCPCS: 95910

== ENCOUNTER 2024-02-06 10:44 | Outpatient (AMB) | payer OTHER, SELFPAY ==
--- NOTE | 2024-02-06 10:49 | A.OFFVIS_ITS ---
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 EMG done on 01/23/2024. Patient reports she feels numbness and tingling in her left wrist and 2nd, 3rd, 4th, and 5th digits. She denies pain. Says her symptoms are worse at night and wakes up with her fingers asleep but this resolves throughout the day. Denies locking of fingers and problems with lifting, gripping, gasping. 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 The patient states that her numbness and tingling are intermittent, but daily, and worse at night. The patient states that she thinks she has carpal tunnel, but is not sure. Patient states she would like a referral to physical therapy, as she would like to hold off on any injections or surgical intervention at this time. No other acute complaints or concerns at this time. [facility] Medical History Type 2 diabetes mellitus History of COVID-19 Hyperlipidemia Diabetes Hypertension Surgical History Hx of tubal ligation H/O esophagogastroduodenoscopy H/O colonoscopy S/P breast biopsy, left Family History Father No problems noted. Mother No problems noted. Social History (Updated 02/06/24 @ 10:59 by PATRICIA Martínez) Are you a primary resident care aide to a significant other at home: No Do you presently have visiting nurse or other home services: No Alcohol intake: never Patient Tobacco Use Status: Never used Tobacco Current occupational status: disabled Female Reproductive History Menstrual Age of Menarche: 9 Review of Systems Const All systems reviewed & are unremarkable except as noted in HPI and below Physical Exam Vital Signs: BMI result Body Mass Index 33.2 Extrem Other: Neuro: Normal sensation of the tips of all digits of the left hand at this time No thenar or intrinsic wasting. Good APB muscle firing and good finger cross. Vascular: Capillary refill brisk. ROM: Patient can make a fist and extend all their digits. Skin: No lacerations or abrasions noted. General: No ecchymosis. No erythema or evidence of infection. Results Reviewed Results Reviewed: IMPRESSION: Mild to moderate left median neuropathy across carpal tunnel. Without needle examination, radiculopathy could not be ruled out. MD LYUDMILA Lowe/OLEG Assessment & Plan Assessment & Plan (1) Carpal tunnel syndrome, left: Code(s): G56.02 - Carpal tunnel syndrome, left upper limb Category: Medical Plan 1. Carpal tunnel syndrome, left Symptoms intermittent, daily, worse at night Patient is educated about this condition and the treatment options available, namely minor surgery However, patient states she would like to hold off on any surgical intervention at this time Therefore, patient was provided with a Velcro wrist splint to be worn at night for help with her nighttime symptoms Patient is also educated on the risks of prolonging treatment for carpal tunnel syndrome, namely dense numbness and APB muscle belly wasting Patient states understanding of this Patient will follow-up when she is ready to discuss surgical intervention, sooner with any acute concerns Coding Level of Care Code New Pt Level 4 (67590) Diagnoses Carpal tunnel syndrome, left G56.02
[2024-02-06 10:57] VITALS: BMI 33.2
== END 2024-02-06 11:27 | disposition home or self-care (01) ==
PROVIDERS: PCP Internal Medicine
DX: G56.02 Carpal tunnel syndrome, left upper limb (principal)
CPT/HCPCS: 99204

== ENCOUNTER → 2024-02-06 10:44 | Outpatient (BNVA) | payer OTHER, SELFPAY | PROVIDERS: PCP Internal Medicine | DX: G56.02 Carpal tunnel syndrome, left upper limb (principal) | CPT/HCPCS: 99202 ==

== ENCOUNTER 2024-05-02 08:45 | Outpatient (REF) | payer OTHER, SELFPAY ==
--- OUTSIDE RECORDS SUMMARY | 2024-05-02 09:19 | XMS_ITS | Encounter Summary ---
Author Organization [employer] Address [address] [facility] 7 [place] [address] Care Team Providers Care Armored Machine Operator Name Role Phone Luis Scruggs MD Primary Care Prov ider Reason for Visit * Reason Onset Date Comments Referral 06/27/2022 Encounter Details Date Type Department Care Team ([facility] st Contact Info) Description 06/27/2022 Telephone [facility] MED[facility] [address] [place] [address] Luis Scruggs MD [address] [place] [address] Referral Social History Tobacco Use Types Packs/Day Years Used Date Smoking Tobacco: Never Passive Smoke Exposure: Never Smokeless Tobacco: Never Alcohol Use Standard Drinks/Week Comments Never 0 (1 standard drink = 0.6 oz pur e alcohol) Depression Answer Date Recorded Patient Health Questionnaire-9 Score 0 04/19/2022 Depression Answer Date Recorded Patient Health Questionnaire-2 Score 0 04/19/2022 Comments Unknown Sex and Gender Information Value Date Recorded Sex Assigned at Female 01/03/2022 10:16 AM EDT Legal Sex Female 10:16 AM EDT Gender Identity Female 01/03/2022 10:16 AM EDT Sexual Orientation Choose not to disclose 2021 10:16 AM EDT COVID-19 Exposure Response Date Recorded In the last 10 days, have yo u been in contact with someone who was confirmed or suspected to have Coronavirus/COVID-19? No / Unsure 06/02/2022 10:33 AM EDT documented as of this encounter Miscellaneous Notes * Telephone Encounter - Mi Lopez - 06/27/2022 12:12 PM EDT Tc from pt requesting a PT1 Name of facility: [facility] Specialty: Cholesterol Appt Location: [address] [place] [address] [place] [address] Date: September 16, 2022 Time: 10 am fax: n/a Phone: n/a wheelchair: n/a Elementary Education Tutor: n/a Please contact pt at [phone] Telugu Speaker documented in this encounter Plan of Treatment Upcoming Encounters Date Type Department Care Team (Late st Contact Info) Description 07/22/2024 10:30 AM EDT Office Visit [facility] MED & PEDS [address] [place], [place] [phone] Luis Scruggs MD [address] [place] [address] documented as of this encounter Visit Diagnoses Not on filedocumented in this encounter Additional Health Concerns Assessment Noted Time PHQ-9 Depression Total Score: 0 04/19/19 23 9:00 AM EST documented as of this encounter Care Teams Armored Machine Operator Relationship Specialty Start Date End Date Luis Scruggs MD [address] [place] [address] PCP - General Internal Medicine 07/30/19 Lio Paula Brick SorterAssembly Mechanic 05/12/23 documented as of this encounter
--- OUTSIDE RECORDS SUMMARY | 2024-05-02 09:19 | XMS_ITS | Encounter Summary ---
Author Organization [employer] Address [address] [facility] 7 [place] [address] Care Team Providers Care Trust Evaluation Supervisor Name Role Phone Luis Scruggs MD Primary Care Prov ider Reason for Visit * Reason Onset Date Comments Durable Medical Equipment 04/19/2024 Encounter Details Date Type Department Care Team (Late st Contact Info) Description 04/19/2024 Telephone [facility] MEDICINE [address] [place] [address] Luis Scruggs MD [address] [place] [address] Durable Medical Equipment Social History Tobacco Use Types Packs/Day Years Used Date Smoking Tobacco: Never Passive Smoke Exposure: Never Smokeless Tobacco: Never Alcohol Use Standard Drinks/Week Comments Never 0 (1 standard drink = 0.6 oz pur e alcohol) Depression Answer Date Recorded Patient Health Questionnaire-9 Score 0 04/19/2022 Housing Stability Answer Date Recorded What is your housing situation today? I have radha couch 01/17/[address] you li ve. Do you have problems with any of the following? None of the above 01/17/2024 Food Insecurity Answer Date Recorded Within the past 12 months, y ou worried that your food would run out before you got money to buy more: Never True 01/17/2024 Within the past 12 months,th e food you bought just didn't last and you didn't have enough money to get more: Never True Transportation Answer Date Recorded In the past 12 months, has l ack of transportation kept you from medical appts, meetings, work or from getting things needed for daily living? No 01/17/2024 Utilities Answer Date Recorded In the past 12 months, has t he electric, gas, oil or water company threatened to shut off services in your home? No 01/17/2024 Depression Answer Date Recorded Patient Health Questionnaire-2 Score 0 04/19/2022 Internet Access Answer Date Recorded Internet Access Q1 Yes 01/17/2024 Internet Access Q2 Not on file 01/17/2024 Comments Unknown Sex and Gender Information Value Date Recorded Sex Assigned at Female 01/03/2022 10:16 AM EDT Legal Sex Female 10:16 AM EDT Gender Identity Female 01/03/2022 10:16 AM EDT Sexual Orientation Choose not to disclose 2021 10:16 AM EDT documented as of this encounter Miscellaneous Notes * Telephone Encounter - Keren Aceves LPN - 04/19/2024 10:53 AM EST Rx generated and faxed to [facility] Please review message below and advise, if agreed please provide DX to support these DME needs Tc from pt requesting DME for Tub Mat Shower Head Shower Bar Shower Chair Gloves - 4 Packs M Contact pt at [phone] * Telephone Encounter - Ricky Ureña - 04/19/2024 10:17 AM EST Tc from pt requesting DME for Tub Mat Shower Head Shower Bar Shower Chair Gloves - 4 Packs M Contact pt at [phone] documented in this encounter Plan of Treatment Upcoming Encounters Date Type Department Care Team ([facility] st Contact Info) Description 07/22/2024 10:30 AM EDT Office Visit [facility] & PEDS [address] [place], [place] [phone] Luis Scruggs MD [address] [place] [address] documented as of this encounter Visit Diagnoses Not on filedocumented in this encounter Additional Health Concerns Assessment Noted Time PHQ-9 Depression Total Score: 0 04/19/19 23 9:00 AM EST documented as of this encounter Care Teams Trust Evaluation Supervisor Relationship Specialty Start Date End Date Luis Scruggs MD [address] [place] [id number] PCP - General Internal Medicine 07/30/19 Lio Paula Police ArtistEnvironmental Studies Professor 05/12/23 documented as of this encounter
--- OUTSIDE RECORDS SUMMARY | 2024-05-02 09:19 | XMS_ITS | Encounter Summary ---
Author Organization [employer] Address [address] [facility] 7 [place] [address] Care Team Providers Care Manager Finance Name Role Phone Luis Scruggs MD Primary Care Prov ider Reason for Visit * Reason Onset Date Comments PT1 06/15/2023 Encounter Details Date Type Department Care Team ([facility] st Contact Info) Description 06/15/2023 Telephone [facility] MEDICINE [address] [place] [address] Luis Scruggs MD [address] [place] [address] PT1 Social History Tobacco Use Types Packs/Day Years Used Date Smoking Tobacco: Never Passive Smoke Exposure: Never Smokeless Tobacco: Never Alcohol Use Standard Drinks/Week Comments Never 0 (1 standard drink = 0.6 oz pur e alcohol) Depression Answer Date Recorded Patient Health Questionnaire-9 Score 0 04/19/2022 Housing Stability Answer Date Recorded What is your housing situation today? I have radha couch 12/26/[address] you li ve. Do you have problems with any of the following? None of the above 12/26/2022 Food Insecurity Answer Date Recorded Within the past 12 months, y ou worried that your food would run out before you got money to buy more: Often true 12/26/2022 Within the past 12 months,th e food you bought just didn't last and you didn't have enough money to get more: Often true Transportation Answer Date Recorded In the past 12 months, has l ack of transportation kept you from medical appts, meetings, work or from getting things needed for daily living? No 12/26/2022 Utilities Answer Date Recorded In the past 12 months, has t he electric, gas, oil or water company threatened to shut off services in your home? No 12/26/2022 Depression Answer Date Recorded Patient Health Questionnaire-2 Score 0 04/19/2022 Comments Unknown Sex and Gender Information Value Date Recorded Sex Assigned at Female 01/03/2022 10:16 AM EDT Legal Sex Female 10:16 AM EDT Gender Identity Female 01/03/2022 10:16 AM EDT Sexual Orientation Choose not to disclose 2021 10:16 AM EDT documented as of this encounter Miscellaneous Notes * Telephone Encounter - Megan Damon - 06/15/2023 4:34 PM EDT PT-1 processed for [facility]. Appointment for [facility] was cancelled per patient request to be sent to the [facility] Center. * Telephone Encounter - Nasreen Ventura - 06/15/2023 10:24 AM EDT Patient calling requesting PT1 Home Address verified: YES Provider name or facility name: [facility] Facility Address: [address] [place] [address] [address], [place] [address] Escort needed: YES 1 Do you have a wheelchair: No, but cane, If yes- Manual or electric: N/A Visits: 12 a year Patient calling requesting PT1 Home Address verified: Y/N: Yes Provider name or facility name: [facility] Facility Address: [address] [place] [address] [address], [place] [address] Escort needed: Y/N: Yes Do you have a wheelchair: Y/N: No If yes- Manual or electric: n/a Visits: 12 a year documented in this encounter Plan of Treatment Upcoming Encounters Date Type Department Care Team (Late st Contact Info) Description 07/22/2024 10:30 AM EDT Office Visit [facility] [address] [place] [address] Luis Scruggs MD [address] [place] [address] documented as of this encounter Visit Diagnoses Not on filedocumented in this encounter Additional Health Concerns Assessment Noted Time PHQ-9 Depression Total Score: 0 04/19/19 23 9:00 AM EST documented as of this encounter Care Teams Manager Finance Relationship Specialty Start Date End Date Luis Scruggs MD [address] [place] [address] PCP - General Internal Medicine 07/30/19 Lio Paula Nut Blanker OperatorTerrazzo Worker Apprentice 05/12/23 documented as of this encounter
--- OUTSIDE RECORDS SUMMARY | 2024-05-02 09:19 | XMS_ITS | Clinical Summary ---
Author Organization [email or web address] Address [address] [place] [address] Care Team Providers Care Cad Intern Name Role Phone Luis Scruggs MD Primary Care Prov ider Allergies No known active allergies Medications * This document contains information received from the source organization and may not represent a complete record from that organization. aspirin 81 MG EC tabletIndications :Type 2 diabetes mellitus with hyperglycemia, with long-term current use of insulin (CMS/HCC) Take 1 tablet (81 mg) by mouth in the morning. 90 tablet 2 023 Active BD Pen Needle Tawanna 2nd Gen 32G X 4 MM miscIndications:T ype 2 diabetes mellitus with hyperglycemia, with long-term current use of insulin (CMS/HCC) Inject under the skin in the morning. Use as instructed 100 each 11 024 Active fenofibrate micronized (Lofibra) 134 MG capsuleIndication s:Mixed hyperlipidemia TAKE 1 CAPSULE(134 MG) BY MOUTH WITH BREAKFAST 90 capsule 3 024 Active triamcinolone (Kenalog) 0.1 % creamIndications: Keratosis pilaris Apply topically if needed in the morning and at bedtime (pain and swelling). To apply to the affected area x 2 weeks. 15 g 024 Active losartan (Cozaar) 100 MG tablet Take 1 tablet (100 mg) by mouth Once per day. 30 tablet 11 024 2024 Active latanoprost (Xalatan) 0.005 % ophthalmic solution INSTILL 1 DROP IN BOTH EYES EVERY NIGHT 024 Active omega-3 acid ethyl esters (Lovaza) 1 g capsule Take 2 g by mouth 2 times daily. Active Trulicity 1.5 MG/0.5ML solution pen-injector ADMINISTER 1.5 MG UNDER THE SKIN EVERY WEEK Active Continuous Glucose Sensor (FreeStyle Murrya 2 Sensor) [facility] USE DIRECTED. CHANGE EVERY 14 DAYS Active insulin glargine (Lantus SoloStar) 100 UNIT/ML penIndications:Ty pe 2 diabetes mellitus with hyperglycemia, with long-term current use of insulin ([facility]) inject 40 Unit by subcutaneous route every evening as per insulin protocol Strength: 100 UNIT/ML 3 mL 3 Active pioglitazone (Actos) 15 MG tablet Take 15 mg by mouth Once per day. Active Alcohol Swabs (Alcohol Prep) 70 % padsIndications:T ype 2 diabetes mellitus with hyperglycemia, with long-term current use of insulin ([facility]) USE 4 TIMES A EVERY DAY FOR USE WITH INSULIN 100 each Active Blood Glucose Monitoring Suppl (FreeStyle Lite) w/Device kit 1 kit 3 times daily. 1 kit 024 2024 Active FreeStyle lancets 1 each by Other route 3 times daily. USE TO TEST BLOOD SUGAR THREE TIMES A DAY 100 each Active glucose blood (FREESTYLE LITE) test strip USE TO TEST BLOOD SUGAR THREE TIMES A DAY 100 each Active amLODIPine (Norvasc) 5 MG tablet Take 1 tablet (5 mg) by mouth Once per day. 30 tablet 11 025 2025 Active atorvastatin (Lipitor) 80 MG tabletIndications :Mixed hyperlipidemia Take 1 tablet (80 mg) by mouth Once per day. 90 tablet 3 025 2025 Active atorvastatin (Lipitor) 80 MG tabletIndications :Mixed hyperlipidemia Take 1 tablet (80 mg) by mouth in the morning. 90 tablet 3 023 2024 Discontinued(R eorder (will not trigger notification to Pharmacy)) amLODIPine (Norvasc) 5 MG tablet Take 1 tablet (5 mg) by mouth in the morning. 30 tablet 11 023 2024 Discontinued(R eorder (will not trigger notification to Pharmacy)) Active Problems Problem Noted Date Diagnosed Date Vaccination refused by patient 11/15/2022 Screening for colon cancer 10/11/2022 Assessment & Plan (10/11/2022 1:28 PM EDT): Done on 11/2021 good for 5 years Annual physical exam 10/11/2022 Foot pain 02/01/2022 Gait instability 02/01/2022 Mood disorder 02/01/2022 Type 2 diabetes mellitus 09/05/2019 Assessment & Plan (04/24/2024 3:01 PM EST): Controlled, A1c 6.1%, no changes will be made, keep low carb/no sugar diet Assessment & Plan (01/17/2024 2:05 PM EST): Followed by endocrinology, on lantus, pioglitazone, jardiance, follow up reccomendations Assessment & Plan (10/03/2023 1:40 PM EDT): Followed by endocrinology on lantus 40 units, trulicity 1.5, eye exam will be done on December Will order urine microalbumin Last A1c <7.0% Assessment & Plan (02/22/2023 9:41 AM EST): Followed by endocrinology, she was started on CBG monitor, will follow up reccomendations Eye exam scheduled for march Assessment & Plan (10/11/2022 1:28 PM EDT): Improving, followed by endocrinology Eye exam done at [facility] on 06/2022 Assessment & Plan (06/10/2022 5:06 PM EDT): Will place new lab order for guidance of therapy, Eye exan scheduled for June 15 Assessment & Plan (02/21/2022 12:19 PM EST): Improved, reinforced low carb diet, she is on lantus 45 units, short actin insulin 12/14/20 and empagliflozin, will follow up in 2 months, if still elevated will consider adding trulicity Carpal tunnel syndrome 07/12/2018 Assessment & Plan (12/25/2023 10:42 AM EDT): Pt has previous Dx of Carpal Tunnel for left wrist, referral to Orthopaedic Surgeon for further treatment. Ordering XR and EMG for further evaluation. Pt declined influenza immunization, TDAP, and Pneumonia immunization today. Pt has follow up appointment in January. Essential hypertension 02/06/2018 Assessment & Plan (04/24/2024 2:58 PM EST): Controlled, continue low sodium diet and exercise as tolerated, keep bp log Assessment & Plan (01/17/2024 2:04 PM EST): Controlled, continue low sodium diet and exercise as tolerated, keep bp log, follow up in 3 months Assessment & Plan (10/03/2023 1:39 PM EDT): Controlled, on losartan 100mg, continue low sodium diet and exercise as tolerated, target Bp <130/80. Assessment & Plan (02/22/2023 9:40 AM EST): Controlled, on losartan/hctz and amlodipine, continue low sodium diet and exercise as tolerated, bp target <130/80 Assessment & Plan (11/15/2022 11:57 AM EDT): Improved, reinforced low sodium diet and exercise as tolerated, continue losartan/hct and amlodipine, will follow up in 3 months Assessment & Plan (10/11/2022 1:27 PM EDT): Not at target, will start amlodipine, continue with losartan/hctz, reinforced low sodium diet and exercise as tolerated. Assessment & Plan (06/10/2022 5:05 PM EDT): Controlled, reinforced low sodium diet and exercise as tolerated, no changes in treatment will be made, follow up in 3 months Assessment & Plan (02/21/2022 12:17 PM EST): Controlled, reinforced low sodium diet and exercise as tolerated, no changes will be made Hyperlipidemia 02/06/2018 Assessment & Plan (01/17/2024 2:05 PM EST): Followed by endocrinology, on atorvastatin 80mg and fenofibrate Assessment & Plan (02/22/2023 9:41 AM EST): Followed by endocrinology, Assessment & Plan (04/19/2022 9:32 AM EST): Improved, but not at target she is on atorvastatin 80mg, fenofibrate 134mg and omega 3, will refer to endocrinology for hyperlipidemia management Encounters Date Type Department Care Team Description 04/24/2024 2:15 PM EST Telemedicine [facility] [address] [place] [address] Luis Scruggs MD Essential hypertension (Primary Dx); Mixed hyperlipidemia; Type 2 diabetes mellitus with hyperglycemia, with long-term current use of insulin ([facility]) 04/24/2024 Travel 04/24/2024 Orders Only [facility] [address] [place] [phone] Kendrick Sands MD 04/19/2024 Orders Only [facility] [address] [place] [address] Luis Scruggs MD 04/19/2024 Telephone [facility] MED[facility] [address] [place] [address] [phone] Luis Scruggs MD Durable Medical Equipment 03/20/2024 Telephone [facility] [address], [place] [phone] Luis Scruggs MD Durable Medical Equipment from Last 3 Months Immunizations Name Administration Dates Next Due Pfizer Covid-19 Vaccine 12+ 05/24/2021, 2 Pfizer Covid-19 Vaccine 12+ amira-sucrose (Louise C ap) 05/24/2021 Social History Tobacco Use Types Packs/Day Years Used Date Smoking Tobacco: Never Passive Smoke Exposure: Never Smokeless Tobacco: Never Tobacco Cessation:Counseling Given: Not Answered Alcohol Use Standard Drinks/Week Comments Never 0 [...] not to disclose 2021 10:16 AM EDT Last Filed Vital Signs Vital Sign Reading Time Taken Comments Blood Pressure 113/81 04/24/2024 2:37 PM EST Pulse 76 04/24/2024 2:37 PM EST Temperature 36.8 ??C (98.2 ??F) 01/17/2024 1 1:08 AM EST Respiratory Rate 18 01/17/2024 11:0 8 AM EST Oxygen Saturation 98% 01/17/2024 11: 08 AM EST Inhaled Oxygen Concentration - - Weight 79.7 kg (175 lb 12.8 oz) 024 11:08 AM EST Height 151 cm (4' 11.45 ) 01/17/2024 11 :08 AM EST Body Mass Index 34.97 01/17/2024 11:08 AM EST Plan of Treatment Upcoming Encounters Date Type Department Care Team ([facility] st Contact Info) Description 07/22/2024 10:30 AM EDT Office Visit [facility] [address] [place] [address] Luis Scruggs MD [address] [place] [address] Health Maintenance Due Date Last Done Comments CT Colonography 1968 Dental Prophylaxis 1968 FIT DNA/Cologuard 1968 FIT 1968 FOBT 1970 Sigmoidoscopy 1968 Diabetes: Foot Exam 1978 Hepatitis B Vaccines (1 of 3 - 19+ 3-dose series) 06/07/1987 Pneumococcal Vaccine: 50+ Years (1 of 2 - PCV) 06/07/1987 Zoster Vaccines (1 of 2) 2018 Dental Oral Exam 11/11/2022 05/10/2022 Depression Screening 04/19/2023 04/19/2022, 04/19/19 23 Dental X-Ray: Bitewings 04/22/2023 04/21/2022 COVID-19 Vaccine ( season) 2023 05/24/2021, 05/24/2021, 05/03/2021 Pap Smear 06/01/2024 06/01/2021 Mammogram 08/24/2024 08/07/2023, 0503/2022, 07/16/2021, Additional history exists Influenza Vaccine (#1) 2024 Postp oned from 11/05/2023 (Patient Refused) Diabetes: Hemoglobin A1C 10/07/2024 025, 01/17/2024, 01/15/2024, Additional history exists DTaP/Tdap/Td Vaccines (1 - Tdap) 12/24/2024 Postponed from 06/07/1987 (Patient Refused) Tobacco Screening 01/11/2025 01/12/2024 Lipid Panel 01/14/2025 01/15/2024, 12/05, 06/20/2023, Additional history exists Alcohol/Substance Use Screening 01/16/2025 01/17/2024 Diabetes: Urine Protein Screening 01/16/2025 01/17/2024, 04/11/2022, 01/22/2021, Additional history exists SDOH Screening 01/16/2025 01/17/2024 Dental X-Ray: Full Mouth 04/22/2025 04/21/2022 Eye Exam 12/06/2025 12/07/2023, 10/0 05/2023, 12/07/2023, Additional history exists Cervical Cancer Screening 06/01/2026 HPV/Cotest 06/01/2026 06/01/2021, 10/09/2018 Colonoscopy 07/05/2026 07/05/2021 Colorectal Cancer Screening 07/05/2026 RSV Patients and Patients Aged 60 years or older (1 - 1-dose 75+ series) 06/07/2043 HIV Screening Completed 06/02/2022 Hepatitis C Screening Completed 06/02/2022, 022 HIB Vaccines Aged Out No longer eligi ble based on patient's age to complete this topic HPV Vaccines Aged Out No longer eligi ble based on patient's age to complete this topic Hepatitis A Vaccines Aged Out No long er eligible based on patient's age to complete this topic IPV Vaccines Aged Out No longer eligi ble based on patient's age to complete this topic Meningococcal Vaccine Aged Out No ny lópez eligible based on patient's age to complete this topic RSV under 20 months Aged Out No longe r eligible based on patient's age to complete this topic Rotavirus Vaccines Aged Out No longer eligible based on patient's age to complete this topic Procedures Procedure Name Priority Date/Time Associated Diagnosis Comments HEMOGLOBIN A1C Routine 04/09/2024 10:32 AM EST ALBUMIN, RANDOM URINE W/CREATININE Routine 01/17/2024 11:57 AM EST Type 2 diabetes mellitus with hyperglycemia, with long-term current use of insulin ([facility]) LIPID PANEL, STANDARD Routine 01/15/2024 11:33 AM EST BI MAMMOGRAM SCREENING TOMOSYNTHESIS BILATERAL Routine 08/07/2023 12:00 PM EDT HEPATITIS C AB W/REFL TO HCV RNA, QN, PCR Routine 06/02/2022 11:59 AM EDT Type 2 diabetes mellitus with hyperglycemia, with long-term current use of insulin (CMS/HCC) HIV 1 RNA, QN PCR W/RFL DARREN (RTI,PI,INTEGRASE) Routine 06/02/2022 11:59 AM EDT Type 2 diabetes mellitus with hyperglycemia, with long-term current use of insulin (CMS/HCC) PERIODIC ORAL EVALUATION - ESTABLISHED PATIENT Routine 05/10/2022 11:00 AM EST INTRAORAL - COMPLETE SERIES OF RADIOGRAPHIC IMAGES Routine 04/21/2022 9:00 AM EST HM COLONOSCOPY Routine 07/05/2021 12:08 PM EDT THINPREP IMAGING PAP AND HPV MRNA E6/E7, WITH CT/NG, TRICHOMONAS Routine 06/01/2021 9:20 AM EDT from Last 3 Months or Most Recently Relevant to Health Maintenance Results * Hemoglobin A1c (04/09/2024 10:32 AM EST) Blood Venous blood specimen / Unknown Kendrick Provider LAB BLOOD ORDERABLES Katty l Result * Albumin, Random Urine W/Creatinine (01/17/2024 11:57 AM EST) Creatinine, Urine 67.24 mg/dL [facility] Microalbumin Urine <5.0 mg/L [facility] Microalbum Creatinine Ratio Ur TNP <30 ug/mg cr [facility] Comment:Unable to calculate albumin/creatinine ratio due to lowmicroalbumin or creatinine result. Urine (Urine, Random) 01/17/2024 11:57 AM EST 01/17/2024 2:02 PM EST us Luis Cervantes MD LAB URINE ORDERABL ES Final Result [facility] [address] [place] [phone] * (ABNORMAL) Lipid Panel, Standard (01/15/2024 11:33 AM EST) Triglycerides 234(H) <150 mg/dL [facility] Comment:Desirable Triglyceri de: less than 150 mg/dLBorderline High Triglyceride 150-199 mg/dLHigh Triglyceride: 200-499 mg/dLVery High Triglyceride: greater than or equal to 5OO mg/dL Cholesterol 236(H) <200 mg/dL [facility] Comment:Desirable Cholestero l: less than 200 mg/dLBorderline High Cholesterol: 200-239 mg/dLHigh Cholesterol: greater than 239 mg/dL LDL Cholesterol Calculated 152(H) <100 mg/dL [facility] Comment:Desirable LDL: less than 100 mg/dLNear Optimal/Above Optimal LDL: 110- 129 mg/dLBorderline High LDL: 130-159 mg/dLHigh LDL: 160-189 mg/dLVery High LDL: greater than or equal to 190 mg/dL HDL Cholesterol 38(L) >40 mg/dL [facility] Comment:Desirable HDL: great er than 40 mg/dL Note: This HDL assay may give artificially low results in patients with liver disease. 01/15/2024 11:3 3 AM EST 01/15/2024 11:33 AM EST us Generic External Data Provider LAB BLOOD ORDERAB LES Final Result [facility] [address] [place] [phone] * BI Mammogram Screening Tomosynthesis Bilateral (08/07/2023 12:00 PM EDT) Anatomical Region Laterality Modality Breast Bilateral Mammography 08/07/2023 12:0 0 PM EDT Narrative 08/07/2023 12:25 PM EDT ? [facility] ? [address] ?[place] [address] ? Mammography Report ? Signed ? Patient: Jonel,Christiana ?MR#: [id number] ?? 9 ? : 1970 ?Acct:[id number] ? Age/Sex: 53 / F ?ADM Date: 08/07/23 ? Loc: HO.MAMMO ? Attending Dr: Luis Cervantes MD ? Ordering Physician: Luis Scruggs MD ? Results: 0Incomplete: Needs Additional Imaging ?? Evaluation ? Date of Service: 08/07/23 ?Follow Up: Additional Imagi ?? ng ? Procedure(s): MM tomosynthesis screening BI ?? Accession Number(s): [id number] ? cc: Luis Scruggs MD ? EXAMINATION: ?? MM SCREENING DIGITAL BREAST TOMOSYNTHESIS, BILATERAL ? CLINICAL INFORMATION: ? Screening. Asymptomatic. ? COMPARISON: ?? Mammography: This study is compared with prior exams dating back to ?? 2019. ? TECHNIQUE: ?? Digital breast tomosynthesis is performed in both the craniocaudal and ?? mediolateral oblique views along with computer-aided detection (CAD). ?? Synthesized 2D images are generated from the tomosynthesis. ? FINDINGS: ?? The breasts are heterogeneously dense, which may obscure small masses ?? (ACR BI-RADS breast composition Category c). ? There is an asymmetry at the lower inner quadrant of the left breast. ?? It lies just medial to a tissue marker from prior benign percutaneous ?? biopsy. Additional mammographic and targeted sonographic imaging of the ?? asymmetry are advised. ? In the right breast, there are no significant masses, abnormal ?? calcifications, or other abnormalities. ? MM/MM tomosynthesis screening BI ?? IMPRESSION: ?? Asymmetry of the left breast warrants additional mammographic and ?? targeted sonographic imaging. ? No mammographic signs of malignancy right breast. ? ASSESSMENT: ? BI-RADS BI-RADS 0 - Incomplete: Needs additional Imaging. ? RECOMMENDATION: ?? 1. Additional views of the left breast. ?? 2. Targeted ultrasound if warranted after review of the additional ?? views. ?? 3. Radiology department staff will contact the patient for additional ?? imaging. ? Additional Imaging required ? This examination should not preclude the clinical evaluation of a ?? suspicious palpable abnormality. ? This patient's information was entered into a reminder system with a ?? target due date for their next mammogram. ? Dictated By: ?Cynthia Jean MD ? Signed By: ?<Electronically signed by Cynthia Jean MD in OV> ? 08/07/23 1221 ? DD/ 1200 ? TD/TT: ? Windshield Technician: ? Procedure Note Hardeep Valenzuela - 08/07/2023 [facility] [address] [place] [address] Mammography Report Signed Patient: Christiana RemyMR#: [id number] 9 : 1970Acct:[id number] Age/Sex: 53 / FADM Date: 08/07/23 Loc: MAMMO Attending Dr: Luis Cervantes MD Ordering Physician: Luis Scruggs MD Results: 0Incomplete: Needs Additional Imaging Evaluation Date of Service: 08/07/23Follow Up: Additional Imagi ng Procedure(s): MM tomosynthesis screening BI Accession Number(s): [id number] cc: Luis Scruggs MD EXAMINATION: MM SCREENING DIGITAL BREAST TOMOSYNTHESIS, BILATERAL CLINICAL INFORMATION: Screening. Asymptomatic. COMPARISON: Mammography: This study is compared with prior exams dating back to 2019. TECHNIQUE: Digital breast tomosynthesis is performed in both the craniocaudal and mediolateral oblique views along with computer-aided detection (CAD). Synthesized 2D images are generated from the tomosynthesis. FINDINGS: The breasts are heterogeneously dense, which may obscure small masses (ACR BI-RADS breast composition Category c). There is an asymmetry at the lower inner quadrant of the left breast. It lies just medial to a tissue marker from prior benign percutaneous biopsy. Additional mammographic and targeted sonographic imaging of the asymmetry are advised. In the right breast, there are no significant masses, abnormal calcifications, or other abnormalities. MM/MM tomosynthesis screening BI IMPRESSION: Asymmetry of the left breast warrants additional mammographic and targeted sonographic imaging. No mammographic signs of malignancy right breast. ASSESSMENT: BI-RADS BI-RADS 0 - Incomplete: Needs additional Imaging. RECOMMENDATION: 1. Additional views of the left breast. 2. Targeted ultrasound if warranted after review of the additional views. 3. Radiology department staff will contact the patient for additional imaging. Additional Imaging required This examination should not preclude the clinical evaluation of a suspicious palpable abnormality. This patient's information was entered into a reminder system with a target due date for their next mammogram. Dictated By: Cynthia Jean MD Signed By: <Electronically signed by Cynthia Jean MD in OV> 08/07/23 1221 DD/ 1200 TD/TT: Windshield Technician: Luis Cervantes MD [facility] PROCEDURES Final Result * HIV-1 RNA, Quantitative, Real-Time PCR with Reflex to Genotype (RTI, PI, Integrase) (06/02/2022 11:59 AM EDT) HIV 1 RNA, QN PCR NOT DETECTED copies/mL [facility] [employer] [facility], HIV 1 RNA, QN PCR NOT DETECTED Log copies/mL [facility] [employer] [facility], Comment: REFERENCE RANGE: NOT DETECTED copies/mL ?NOT DETECTED ??Log copies/mL This test was performed using Real-Time Polymerase Chain Reaction. Reportable range is 20 to 10,000,000 copies/mL (1.30-7.00 Log copies/mL). 06/02/2022 11:5 9 AM EDT 06/02/2022 12:01 PM EDT Narrative [facility] - 06/07/2022 11:49 AM EDT FASTING:NO FASTING: NO Luis Cervantes MD LAB BLOOD ORDERABL ES Final Result Performing Organization Address City/State/[facility] de Phone Number [facility] [address], [place] [address] [facility], [address] [place] [address] * Hepatitis C Antibody with Reflex to HCV, RNA, Quantitative, Real-Time PCR (06/02/2022 11:59 AM EDT) Hepatitis C Antibody NON-REACT SHONDA NON-REACT SHONDA [facility] [place] [facility] Index 0.07 <1.00 [facility] Comment: HCV antibody was non-reactive. There is no laboratory evidence of HCV infection. In most cases, no further action is required. However, if recent HCV exposure is suspected, a test for HCV RNA (test code 78887) is suggested. For additional information please refer to http://education.Obviousidea/faq/YBX08u0 (This link is being provided for informational/ educational purposes only.) Blood Venous blood specimen / Unknown 06/02/2022 11:59 AM EDT 06/02/2022 12:01 PM EDT Narrative [facility] - 06/07/2022 11:49 AM EDT FASTING:NO FASTING: NO Luis Cervantes MD LAB BLOOD ORDERABL ES Final Result [facility] [address] [facility] [place] [address] [facility] [address] [place] [address] * Hm Colonoscopy (07/05/2021 12:08 PM EDT) us Historical Provider HEALTH MAINTENANCE Final Result * THINPREP TIS PAP AND HPV mRNA E6/E7, CT/NG, TRICH (06/01/2021 9:20 AM EDT) Chlamydia trachomatis RNA, TMA, Urogenital NOT DETECTED NOT DETECTED [facility] Clinical Information: None given [facility] COMMENT SEE COMMENT [facility] Comment: The analytical performance characteristics of this assay, when used to test SurePath(TM) specimens have been determined by [facility]. The modifications have not been cleared or approved by the FDA. This assay has been validated pursuant to the CLIA regulations and is used for clinical purposes. ?? For additional information, please refer to https://education.Obviousidea/faq/KJL949 (This link is being provided for information/ educational purposes only.) ?? COMMENT SEE COMMENT [facility] Comment: EXPLANATORY NOTE: ? The Pap is a screening test for cervical cancer. It is ?? not a diagnostic test and is subject to false negative ?? and false positive results. It is most reliable when a ?? satisfactory sample, regularly obtained, is submitted ?? with relevant clinical findings and history, and when ?? the Pap result is evaluated along with historic and ?? current clinical information. ?? COMMENT: This Pap test has been evaluated with computer assisted technology. [facility] Barrel Lapper: SEE COMMENT [facility] Comment: WAC, CT(ASCP) CT screening location: [address] ??[address] HPV nRNA E6/E7 Not Detected Not Detected [facility] Comment: Methodology: Cellular Tower Climber-Mediated Amplification This assay detects E6/E7 viral messenger RNA (mRNA) from 14 high-risk HPV types (16,18,31,33,35,39,45,51,52,56,58,59,66,68). ? The analytical performance characteristics of this assay have been determined by [facility]. The modifications have not been cleared or approved by the FDA. This assay has been validated pursuant to the CLIA regulations and is used for clinical purposes. ?? For additional information, please refer to http://[employer].Obviousidea/faq/OZQ053c9 (This link if provided for information/ educational purposes only.) Infection Shift in vaginal ana cristina suggestive of bacterial vaginosis. [facility] Interpretation/Re sult: Negative for intraepithelial lesion or malignancy. [facility] LMP: NONE GIVEN [facility] Neisseria gonorrhoeae RNA, TMA, Urogenital NOT DETECTED NOT DETECTED [facility] Prev. BX: NONE GIVEN [facility] Prev. PAP: NONE GIVEN [facility] SOURCE: None given [facility] Statement Of Adequacy: SEE COMMENT [facility] Comment: Satisfactory for evaluation. Endocervical/transformation zone component present. Age and/or menstrual status not provided Trichomonas vaginalis, QL, TMA, PAP Vial NOT DETECTED NOT DETECTED [facility] Comment: The analytical performance characteristics of this assay have been determined by [facility]. The modifications have not been cleared or approved by the FDA. This assay has been validated pursuant to the CLIA regulations and is used for clinical purposes. ?? For additional information, please refer to [email or web address]/ [email or web address]/[email or web address] (This link is being provided for information/ educational purposes only.) ?? 06/01/2021 9:20 AM EDT [facility] PATHOLOGY ORDERABLES Final Result [facility] [address] from Last 3 Months or Most Recently Relevant to Health Maintenance Insurance [facility] MEDICAID STAND ADULT Care Teams Cad Intern Relationship Specialty Start Date End Date Luis Scruggs MD [address] [place] [address] PCP - General Internal Medicine 07/30/19 Lio Paula Biofuels Production ManagerClinical Trial Specialist 05/12/23
--- OUTSIDE RECORDS SUMMARY | 2024-05-02 09:19 | XMS_ITS | Encounter Summary ---
Author Organization [employer] Address 75 [facility] 7 [place] [address] Care Team Providers Care Hostel Manager Name Role Phone Luis Scruggs MD Primary Care Prov ider Reason for Visit * Reason Onset Date Comments Referral 06/13/2023 Encounter Details Date Type Department Care Team (Late st Contact Info) Description 06/13/2023 Telephone [facility] MEDICINE [address] [place] [address] Luis Scruggs MD [address] [place] [address] Referral Social History Tobacco Use Types Packs/Day [...] * Telephone Encounter - Megan Damon - 06/14/2023 11:38 AM EDT Referral faxed to [facility] at [phone] as requested. * Telephone Encounter - Oscar Brumfield - 06/13/2023 4:10 PM EDT TC from pt requesting new referral : Address: [address] [place] [address] [address], [place] [address] Facility Name: [facility] Type of Specialist: Vascular Pt was referred to [facility] ([address] [place] [address]) butpt is requesting to change location of referral to one listed above. If any questions please contact pt at [phone]. documented in this encounter Plan of Treatment Upcoming Encounters Date Type Department Care Team (Late st Contact Info) Description 07/22/2024 10:30 AM EDT Office Visit [facility] MED & PEDS [address] [place] [address] Luis Scruggs MD [address] [place] [address] documented as of this encounter Visit Diagnoses Not on filedocumented in this encounter Additional Health Concerns Assessment Noted Time PHQ-9 Depression Total Score: 0 04/19/19 23 9:00 AM EST documented as of this encounter Care Teams Hostel Manager Relationship Specialty Start Date End Date Luis Scruggs MD [address] [place] [address] PCP - General Internal Medicine 07/30/19 Lio Paula Community Service Patrol OfficerClient Services Coordinator 05/12/23 documented as of this encounter
--- OUTSIDE RECORDS SUMMARY | 2024-05-02 09:19 | XMS_ITS | Encounter Summary ---
Author Organization [employer] Address 75 [facility] 7 [place] [address] Care Team Providers Care Forest Officer Name Role Phone Luis Scruggs MD Primary Care Prov ider Reason for Visit * Reason Onset Date Comments PT1 06/28/2023 Encounter Details Date Type Department Care Team ([facility] st Contact Info) Description 06/28/2023 Telephone [facility] CHC MED & PEDS [address] [place] [address] Luis Scruggs MD [address] [place] [address] PT1 Social History Tobacco Use Types Packs/Day [...] * Telephone Encounter - Megan Damon - 06/30/2023 3:33 PM EDT PT-1 submitted for patient. They will receive a letter of approval or denial in the mail. * Telephone Encounter - Carmelita Reardon - 06/28/2023 11:54 AM EDT Patient calling requesting PT1 Home Address verified: YES Provider name or facility name: [facility] Facility Address: [address] [place] [address] Escort needed: YES 1 Do you have a wheelchair: No, but cane, If yes- Manual or electric: N/A Visits: 2-3 every month Home Address verified: YES Provider name or facility name: [facility] Facility Address: [address] [place] [address] [address], [place] [address] Escort needed: YES 1 Do you have a wheelchair: No, but cane, If yes- Manual or electric: N/A Visits: about 3 visits every month documented in this encounter Plan of Treatment Upcoming Encounters Date Type Department Care Team (Late st Contact Info) Description 07/22/2024 10:30 AM EDT Office Visit [facility] CHC MED & PEDS [address] [place] [address] Luis Scruggs MD [address] [place], [place] [phone] documented as of this encounter Visit Diagnoses Not on filedocumented in this encounter Additional Health Concerns Assessment Noted Time PHQ-9 Depression Total Score: 0 04/19/19 23 9:00 AM EST documented as of this encounter Care Teams Forest Officer Relationship Specialty Start Date End Date Luis Scruggs MD [address] [place] [address] PCP - General Internal Medicine 07/30/19 Lio Paula Radiology TechnicianChef French 05/12/23 documented as of this encounter
--- OUTSIDE RECORDS SUMMARY | 2024-05-02 09:19 | XMS_ITS | Encounter Summary ---
Author Organization [employer] Address 75 [facility] 7t [place] [address] Care Team Providers Care Labor Training Manager Name Role Phone Luis Scruggs MD Primary Care Prov ider Encounter Details Date Type Department Care Team ([facility] st Contact Info) Description 04/24/2024 2:15 PM EST Telemedicine [facility] CHC MED & PEDS [address] [place], [place] [phone] Luis Scruggs MD [address] [place] [address] Essential hypertension (Primary Dx); Mixed hyperlipidemia; Type 2 diabetes mellitus with hyperglycemia, with long-term current use of insulin ([facility]) Social History Tobacco Use Types Packs/Day Years [...] AM EDT documented as of this encounter Last Filed Vital Signs Vital Sign Reading Time Taken Comments Blood Pressure 113/81 04/24/2024 2:37 PM EST Pulse 76 04/24/2024 2:37 PM EST Temperature - - Respiratory Rate - - Oxygen Saturation - - Inhaled Oxygen Concentration - - Weight - - Height - - Body Mass Index - - documented in this encounter Progress Notes * Luis Cervantes MD - 04/24/2024 2:15 PM EST Subjective Patient ID: Christiana Remy is a 53 y.o. female who presents for No chief complaint on file.. Hypertension This is a chronic problem. The problem is controlled. Pertinent negatives include no chest pain, headaches, palpitations, peripheral edema or shortness of breath. Review of Systems Respiratory: Negative for shortness of breath. Cardiovascular: Negative for chest pain and palpitations. Neurological: Negative for headaches. Objective Physical Exam Neurological: General: No focal deficit present. Mental Status: She is oriented to person, place, and time. Psychiatric: Mood and Affect: Mood normal. Behavior: Behavior normal. Assessment/Plan Problem List Items Addressed This Visit Essential hypertension - Primary Controlled, continue low sodium diet and exercise as tolerated, keep bp log Hyperlipidemia Relevant Medications atorvastatin (Lipitor) 80 MG tablet Type 2 diabetes mellitus (CMS/HCC) Controlled, A1c 6.1%, no changes will be made, keep low carb/no sugar diet documented in this encounter Miscellaneous Notes * Assessment & Plan Note - Luis Cervantes MD - 04/24/2024 3:01 PM ESTAssociated Problem(s): Type 2 diabetes mellitus (CMS/HCC) Controlled, A1c 6.1%, no changes will be made, keep low carb/no sugar diet * Assessment & Plan Note - Luis Cervantes MD - 04/24/2024 2:58 PM ESTAssociated Problem(s): Essential hypertension Controlled, continue low sodium diet and exercise as tolerated, keep bp log documented in this encounter Plan of Treatment Upcoming Encounters Date Type Department Care Team (Late st Contact Info) Description 07/22/2024 10:30 AM EDT Office Visit [facility] MED & PEDS [address] [place] [address] Luis Scruggs MD [address] [place] [address] documented as of this encounter Visit Diagnoses Diagnosis Essential hypertension- Primary Unspecified essential hypertension Mixed hyperlipidemia Type 2 diabetes mellitus with hyperglycemia, with long-term current use of insulin ([facility]) documented in this encounter Additional Health Concerns Assessment Noted Time PHQ-9 Depression Total Score: 0 04/19/19 23 9:00 AM EST documented as of this encounter Care Teams Labor Training Manager Relationship Specialty Start Date End Date Luis Scruggs MD [address] [place] [address] PCP - General Internal Medicine 07/30/19 Lio Paula Data Entry ManagerVeneer Sorter 05/12/23 documented as of this encounter
--- OUTSIDE RECORDS SUMMARY | 2024-05-02 09:19 | XMS_ITS | Encounter Summary ---
Author Organization [employer] Address 75 [facility] 7 [place] [address] Care Team Providers Care Community Education Specialist Name Role Phone Luis Scruggs MD Primary Care Prov ider Reason for Visit * Reason Onset Date Comments Referral 06/30/2023 PT-1 06/30/2023 Encounter Details Date Type Department Care Team (Late st Contact Info) Description 06/30/2023 Telephone [facility] MEDICINE [address] [place] [address] Luis Scruggs MD [address] [place] [address] Referral; PT-1 Social History Tobacco Use Types Packs/Day Years [...] encounter Miscellaneous Notes * Telephone Encounter - Vero Hull - 07/20/2023 9:36 AM EDT Tc from pt requesting status on referral above. * Telephone Encounter - Damian Knutson - 06/30/2023 1:22 PM EDT Tc from patient requesting the referral for the parachute cushion installer to be changed from [facility] to [facility] at [address] [place] [address] [address], [place] [address] and is requesting a PT-1 for that Location Patient calling requesting PT1 Home Address verified: Y/N: Yes Provider name or facility name: [facility] Facility Address: [address] [place] [address] [address] [address] Escort needed: Y/N: Yes Do you have a wheelchair: Y/N: No If yes- Manual or electric: no Patient has a Cane Visits: 3 documented in this encounter Plan of Treatment Upcoming Encounters Date Type Department Care Team (Late st Contact Info) Description 07/22/2024 10:30 AM EDT Office [facility] MED & PEDS [address] [place], [place] [phone] Luis Scruggs MD [address] [place], [place] [phone] documented as of this encounter Visit Diagnoses Not on filedocumented in this encounter Additional Health Concerns Assessment Noted Time PHQ-9 Depression Total Score: 0 04/19/19 23 9:00 AM EST documented as of this encounter Care Teams Community Education Specialist Relationship Specialty Start Date End Date Luis Scruggs MD [address] [place] [address] PCP - General Internal Medicine 07/30/19 Lio Paula Boat OutfitterTextile Bag Sewer 05/12/23 documented as of this encounter
--- OUTSIDE RECORDS SUMMARY | 2024-05-02 09:19 | XMS_ITS | Clinical Summary ---
Author Organization [facility] it Address [address] [place] [address] Care Team Providers Care Purchasing Department Clerk Name Role Phone Unavailable Primary Care Provider Unavailabl e Social History Tobacco Use Types Packs/Day Years Used Date Smoking Tobacco: Never Assessed Comments Unknown Sex and Gender Information Value Date Recorded Sex Assigned at Not on file Legal Sex Female 5:29 AM EST Gender Identity Not on file Sexual Orientation Not on file Plan of Treatment Health Maintenance Due Date Last Done Comments Breast Cancer Screening 1968 DTaP,Tdap,and Td Vaccines (1 - Tdap) 06/07/1987 Hepatitis B Vaccines (1 of 3 - 19+ 3-dose series) 06/07/1987 Cervical Cancer Screening: P ap Smear 1989 Pneumococcal Vaccine: 50+ Ye ars (1 of 1 - PCV) 2018 Zoster Vaccines (1 of 2) 2018 COVID-19 Vaccine (2023-2 5 season) 2023 Influenza Vaccine (#1) 2023 HIB Vaccines Aged Out No longer eligi [...] on patient's age to complete this topic MMR Vaccines Aged Out No longer eligi ble based on patient's age to complete this topic Meningococcal ACWY Vaccine Aged Out N o longer eligible based on patient's age to complete this topic Meningococcal B Vacine Aged Out No lo nger eligible based on patient's age to complete this topic Pneumococcal Vaccine: Pediat rics (0 to 5 Years) and At-Risk Patients (6 to 64 Years) Aged Out No longer eligible b ased on patient's age to complete this topic RSV Immunization Patients Un kevin 20 months Aged Out No longer eligible b ased on patient's age to complete this topic Varicella Vaccines Aged Out No longer eligible based on patient's age to complete this topic
--- OUTSIDE RECORDS SUMMARY | 2024-05-02 09:19 | XMS_ITS | Encounter Summary ---
Author Organization [employer] Address 75 [facility] 7t [place] [address] Care Team Providers Care Tax Staff Accountant Name Role Phone Luis Scruggs MD Primary Care Prov ider Encounter Details Date Type Department Care Team ([facility] st Contact Info) Description 06/22/2023 Telephone [facility] CHC MED & PEDS [address] [place] [address] Luis Scruggs MD [address] [place] [address] Social History Tobacco Use Types Packs/Day Years [...] encounter Miscellaneous Notes * Telephone Encounter - Sammie De La Rosa RN - 08/02/2023 9:41 AM EDT Placed call to pt and informed of PCP POC. Pt verbalized understanding and agrees with plan. * Telephone Encounter - Vero Hull - 06/22/2023 12:51 PM EDT Tc from ginny with [facility] calling to advise provider would like pt to stoplosartan-hydroCHLOROthiazide (Hyzaar) 100-25 MG tablet. States they would like to recheck lipids in2-3 months. States provider can prescribe alternative throughout the 2-3 months of not taking medication. Any questions, please contact Ginny at [phone] documented in this encounter Plan of Treatment Upcoming Encounters Date Type Department Care Team (Late st Contact Info) Description 07/22/2024 10:30 AM EDT Office Visit [facility] MED & PEDS [address] [place] [address] Luis Scruggs MD [address] [place] [address] documented as of this encounter Visit Diagnoses Not on filedocumented in this encounter Additional Health Concerns Assessment Noted Time PHQ-9 Depression Total Score: 0 04/19/19 23 9:00 AM EST documented as of this encounter Care Teams Tax Staff Accountant Relationship Specialty Start Date End Date Luis Scruggs MD [address] [place] [address] PCP - General Internal Medicine 07/30/19 Lio Paula Returns ClerkTool Setter Apprentice 05/12/23 documented as of this encounter
--- OUTSIDE RECORDS SUMMARY | 2024-05-02 09:19 | XMS_ITS | Encounter Summary ---
Author Organization [employer] Address [address] [facility] [address] 7t [place] [address] Care Team Providers Care Price Changer Name Role Phone Luis Scruggs MD Primary Care Prov ider Encounter Details Date Type Department Care Team (Late st Contact Info) Description 07/27/2023 Telephone [facility] MEDICINE [address] [place] [address] Luis Scruggs MD [address] [place], [place] [phone] Social History Tobacco Use Types Packs/Day Years [...] AM EDT documented as of this encounter Plan of Treatment Upcoming Encounters Date Type Department Care Team (Late st Contact Info) Description 07/22/2024 10:30 AM EDT Office Visit [facility] MED & PEDS [address] [place] [address] Luis Scruggs MD [address] [place] [address] documented as of this encounter Visit Diagnoses Not on filedocumented in this encounter Additional Health Concerns Assessment Noted Time PHQ-9 Depression Total Score: 0 04/19/19 23 9:00 AM EST documented as of this encounter Care Teams Price Changer Relationship Specialty Start Date End Date Luis Scruggs MD [address] [place] [address] PCP - General Internal Medicine 07/30/19 Lio Paula Shoe ReconditionerResearch Laboratory Manager 05/12/23 documented as of this encounter
--- OUTSIDE RECORDS SUMMARY | 2024-05-02 09:19 | XMS_ITS | Encounter Summary ---
Author Organization [employer] Address [address] [facility] [address] [place] [address] Care Team Providers Care Net Wpf Developer Name Role Phone Luis Scruggs MD Primary Care Prov ider Encounter Details Date Type Department Care Team (Late st Contact Info) Description 06/23/2023 Orders Only [facility] MEDICINE [address] [place] [address] ProviderKendrick MD Social History Tobacco Use Types Packs/Day Years [...] Description 07/22/2024 10:30 AM EDT Office Visit [facility] MED & PEDS 505 [place] [address] Luis Scruggs MD [address] [place] [address] documented as of this encounter Procedures Procedure Name Priority Date/Time Associated Diagnosis Comments HM COLONOSCOPY Routine 07/05/2021 12:08 PM EDT documented in this encounter Results * Hm Colonoscopy (07/05/2021 12:08 PM EDT) us Historical Provider HEALTH MAINTENANCE Final Result documented in this encounter Visit Diagnoses Not on filedocumented in this encounter Additional Health Concerns Assessment Noted Time PHQ-9 Depression Total Score: 0 04/19/19 23 9:00 AM EST documented as of this encounter Care Teams Net Wpf Developer Relationship Specialty Start Date End Date Luis Scruggs MD [address] [place] [address] PCP - General Internal Medicine 07/30/19 Lio Paula ScratcherJavascript Web Developer 05/12/23 documented as of this encounter
--- OUTSIDE RECORDS SUMMARY | 2024-05-02 09:19 | XMS_ITS | Encounter Summary ---
Author Organization [employer] Address 75 [facility] 7 [place] [address] Care Team Providers Care Advertising Designer Name Role Phone Luis Scruggs MD Primary Care Prov ider Reason for Visit * Reason Onset Date Comments Durable Medical Equipment 03/20/2024 Encounter Details Date Type Department Care Team (Late st Contact Info) Description 03/20/2024 Telephone [facility] MEDICINE [address] [place] [address] Luis Scruggs MD [address] [place] [address] Durable Medical Equipment Social History Tobacco Use [...] encounter Miscellaneous Notes * Telephone Encounter - Carmelita Reardon - 04/10/2024 1:30 PM EST Tc from pt request status on DME . Pt would also like add supplies and change size for below request. Gloves ( M) Hand organic search lead Face mask * Telephone Encounter - Keren Aceves LPN - 03/21/2024 1:21 PM EST Please review pt request below and advise If agreed please provide DX code / Tc from pt requesting Mask and gloves size (L) . * Telephone Encounter - Sandy Damon - 03/20/2024 3:06 PM EST Tc from pt requesting Mask and gloves size (L) . documented in this encounter Plan of Treatment Upcoming Encounters Date Type Department Care Team (Late st Contact Info) Description 07/22/2024 10:30 AM EDT Office Visit [facility] MED & PEDS [address] [place] [address] Luis Scruggs MD [address] [place], [place] [phone] documented as of this encounter Visit Diagnoses Not on filedocumented in this encounter Additional Health Concerns Assessment Noted Time PHQ-9 Depression Total Score: 0 04/19/19 23 9:00 AM EST documented as of this encounter Care Teams Advertising Designer Relationship Specialty Start Date End Date Luis Scruggs MD [address] [place] [address] PCP - General Internal Medicine 07/30/19 Lio Paula Janitorial ManagerFrench Binder 05/12/23 documented as of this encounter
--- OUTSIDE RECORDS SUMMARY | 2024-05-02 09:19 | XMS_ITS | Encounter Summary ---
Author Organization [employer] Address 75 [facility] 7 [place] [address] Care Team Providers Care Blueprint Trimmer Name Role Phone Luis Scruggs MD Primary Care Prov ider Reason for Visit * Reason Onset Date Comments PT-1 08/18/2023 Encounter Details Date Type Department Care Team ([facility] st Contact Info) Description 08/18/[address] [facility] MEDICINE [address] [place] [address] Luis Scruggs MD [address] [place] [address] PT-1 Social History Tobacco Use Types Packs/Day [...] encounter Miscellaneous Notes * Telephone Encounter - Damian Knutson - 08/18/2023 12:27 PM EDT Patient calling requesting PT1 Home Address verified: Y/N: Yes Provider name or facility name: [facility] Facility Address: [address] [place] [address] Escort needed: Y/N: No Do you have a wheelchair: Y/N: No ( Cane) If yes- Manual or electric: no Visits: 3 documented in this encounter Plan of Treatment Upcoming Encounters Date Type Department Care Team (Late st Contact Info) Description 07/22/2024 10:30 AM EDT Office Visit [facility] MED & PEDS [address] [place] [address] Luis Scruggs MD [address] [place] [address] documented as of this encounter Visit Diagnoses Not on filedocumented in this encounter Additional Health Concerns Assessment Noted Time PHQ-9 Depression Total Score: 0 04/19/19 23 9:00 AM EST documented as of this encounter Care Teams Blueprint Trimmer Relationship Specialty Start Date End Date Luis Scruggs MD [address] [place] [address] PCP - General Internal Medicine 07/30/19 Lio Paula Baseball Hand SewerHead Start Assistant Teacher 05/12/23 documented as of this encounter
--- OUTSIDE RECORDS SUMMARY | 2024-05-02 09:19 | XMS_ITS | Encounter Summary ---
Author Organization [employer] Address 75 [facility] 7t [place] [address] Care Team Providers Care Senior Sql Developer Name Role Phone Luis Scruggs MD Primary Care Prov ider Encounter Details Date Type Department Care Team ([facility] st Contact Info) Description 04/19/2024 Orders Only [facility] CHC MED & PEDS [address] [place], [place] [phone] Luis Scruggs MD [address] [place] [address] Social History Tobacco Use Types Packs/Day Years [...] [facility] MED & PEDS [address] [place] [address] Luis Scruggs MD [address] [place] [address] documented as of this encounter Visit Diagnoses Not on filedocumented in this encounter Additional Health Concerns Assessment Noted Time PHQ-9 Depression Total Score: 0 04/19/19 23 9:00 AM EST documented as of this encounter Care Teams Senior Sql Developer Relationship Specialty Start Date End Date Luis Scruggs MD [address] [place] [address] PCP - General Internal Medicine 07/30/19 Lio Paula Whey Department OperatorDirector Of Community Services 05/12/23 documented as of this encounter
--- OUTSIDE RECORDS SUMMARY | 2024-05-02 09:19 | XMS_ITS | Encounter Summary ---
Author Organization [employer] Address [address] [facility] 7 [place] [address] Care Team Providers Care Stem Cleaning Machine Feeder Name Role Phone Luis Scruggs MD Primary Care Prov ider Reason for Visit * Reason Onset Date Comments Referral 03/08/2023 PT-1 Renewal Encounter Details Date Type Department Care Team ([facility] st Contact Info) Description 03/08/2023 Telephone [facility] [address] [place] [address] Luis Scruggs MD [address] [place] [address] Referral (PT-1 Renewal ) Social History Tobacco Use Types Packs/Day Years [...] * Telephone Encounter - Megan Damon - 03/08/2023 3:54 PM EST PT-1 submitted for patient. They will receive a letter of approval or denial in the mail. * Telephone Encounter - Damian Knutson - 03/08/2023 12:25 PM EST PT1 needed Date: n/a Time: n/a Visits: future appointments Address: [address], [place] [address] Facility: [facility] Wheel Chair: Cane Medical Specialist Needed: no PT1 needed Date: n/a Time: n/a Visits: future appointments Address: [address] [place] [id number] Facility: [facility] [place] Chair: Cane Medical Specialist Needed: no PT-1 Renewal documented in this encounter Plan of Treatment Upcoming Encounters Date Type Department Care Team (Late st Contact Info) Description 07/22/2024 10:30 AM EDT Office Visit [facility] [address] [place], [place] [phone] Luis Scruggs MD [address] [place], [place] [phone] documented as of this encounter Visit Diagnoses Not on filedocumented in this encounter Additional Health Concerns Assessment Noted Time PHQ-9 Depression Total Score: 0 04/19/19 23 9:00 AM EST documented as of this encounter Care Teams Stem Cleaning Machine Feeder Relationship Specialty Start Date End Date Luis Scruggs MD [address] [place] [id number] PCP - General Internal Medicine 07/30/19 Lio Paula Herb DiggerNeurodiagnostic Technician 05/12/23 documented as of this encounter
--- OUTSIDE RECORDS SUMMARY | 2024-05-02 09:19 | XMS_ITS | Encounter Summary ---
Author Organization [employer] Address [address] [facility] [address] [place] [address] Care Team Providers Care Power Electronics Research Engineer Name Role Phone Luis Scruggs MD Primary Care Prov ider Encounter Details Date Type Department Care Team (Latest Contact Info) Description 04/24/2024 Travel Social History Tobacco Use Types Packs/Day Years Used Date Smoking Tobacco: Never Passive Smoke Exposure: Never Smokeless Tobacco: Never Alcohol Use Standard Drinks/Week Comments Never 0 (1 standard drink = 0.6 oz pur e alcohol) Depression Answer Date Recorded Patient Health Questionnaire-9 Score 0 04/19/2022 Housing Stability Answer Date Recorded What is your housing situation today? I have radhaodin couch 01/17/[address] you [...] Description 07/22/2024 10:30 AM EDT Office Visit [facility] [address] [place] [address] Luis Scruggs MD [address] [place] [address] documented as of this encounter Visit Diagnoses Not on filedocumented in this encounter Additional Health Concerns Assessment Noted Time PHQ-9 Depression Total Score: 0 04/19/19 23 9:00 AM EST documented as of this encounter Care Teams Power Electronics Research Engineer Relationship Specialty Start Date End Date Luis Scruggs MD [address] [place] [address] PCP - General Internal Medicine 07/30/19 Lio Paula Control Systems Drafting OfficerSurvey Research Associate 05/12/23 documented as of this encounter
--- OUTSIDE RECORDS SUMMARY | 2024-05-02 09:20 | XMS_ITS | Encounter Summary ---
Author Organization [employer] Address [address] [facility] [address] [place] [address] Care Team Providers Care Speeder Machine Operator Name Role Phone Luis Scruggs MD Primary Care Prov ider Encounter Details Date Type Department Care Team (Late st Contact Info) Description 04/24/2024 Orders Only [facility] [address] [place] [address] ProviderKendrick MD Social History Tobacco Use Types [...] 10:30 AM EDT Office Visit [facility] [address] [place], [place] [phone] Luis Scruggs MD [address] [place] [address] documented as of this encounter Procedures Procedure Name Priority Date/Time Associated Diagnosis Comments HEMOGLOBIN A1C Routine 04/09/2024 10:32 AM EST documented in this encounter Results * Hemoglobin A1c (04/09/2024 10:32 AM EST) Blood Venous blood specimen / Unknown us Historical Provider LAB BLOOD ORDERABLES Katty l Result documented in this encounter Visit Diagnoses Not on filedocumented in this encounter Additional Health Concerns Assessment Noted Time PHQ-9 Depression Total Score: 0 04/19/19 23 9:00 AM EST documented as of this encounter Care Teams Speeder Machine Operator Relationship Specialty Start Date End Date Luis Scruggs MD [address] [place] [address] PCP - General Internal Medicine 07/30/19 Lio Paula Tag Machine OperatorSinter Feeder 05/12/23 documented as of this encounter
--- OUTSIDE RECORDS SUMMARY | 2024-05-02 09:20 | XMS_ITS | Encounter Summary ---
Author Organization [employer] [facility] Address [address] [place] [address] 7 [place] [address] Care Team Providers Care Radio Disc Jockey Name Role Phone Luis Scruggs MD Primary Care Prov ider Encounter Details Date Type Department Care Team (Latest Contact Info) Description 11/21/2018 Abstract [facility] CONVERSIONS Dental, Provider, DDS Social History Tobacco Use Types Packs/Day Years [...] Description 07/22/2024 10:30 AM EDT Office Visit [facility] [address] [place] [address] Luis Scruggs MD [address] [place] [address] documented as of this encounter Visit Diagnoses Not on filedocumented in this encounter Care Teams Radio Disc Jockey Relationship Specialty Start Date End Date Luis Scruggs MD [address] [place] [address] PCP - General Internal Medicine 07/30/19 Lio Paula Compensation And Benefits AnalystAvionics Electronics Technician 05/12/23 documented as of this encounter
[2024-05-02 10:32] LABS: Cholesterol 208 mg/dL (<200); Triglycerides 227 mg/dL (<150)
[2024-05-02 10:58] LABS: HDL Cholesterol 37 mg/dL (>40); LDL Cholesterol Calculated 126 mg/dL (<100)
== END 2024-05-02 08:46 | disposition home or self-care (01) ==
LOC: HO.LAB 08:45
PROVIDERS: PCP Internal Medicine; Visit Provider Internal Medicine Endocrinology, Diabetes & Metabolism
DX: E78.2 Mixed hyperlipidemia (principal)
CPT/HCPCS: 36415; 80061